=== PATIENT | female | born 1985 | race Caucasian/White ===

== ENCOUNTER 2023-05-06 07:25 | Emergency (ER) | payer MEDICARE, MEDICAID, SELFPAY ==
--- NOTE | ~2023-05-06 | CT_ITS ---
EXAMINATION: CT ABDOMEN AND PELVIS WITHOUT CONTRAST CLINICAL INFORMATION: Abdominal pain COMPARISON: Pelvic ultrasound 11/03/2017 TECHNIQUE: Multidetector volumetric imaging was performed from the superior aspect of the liver through the pubic symphysis. Sagittal and coronal reformatted images were obtained on the technologist's workstation. This CT examination was performed using dose optimization techniques as appropriate, variously including the following: *Automated exposure control *Adjustment of mA and/or kV according to patient size (this includes techniques or standardized protocols for targeted exams where dose is matched to indication/reason for exam; i.e. extremities or head) *Use of iterative reconstruction technique DLP: 298 mGy-cm FINDINGS: Lack of mesenteric fat and visceral crowding somewhat limits evaluation. LUNG BASES: Unremarkable. ABDOMINAL AND PELVIC WALL: Unremarkable. LIVER AND BILIARY TREE: Liver is enlarged measuring 20.4 cm in span. GALLBLADDER: Unremarkable. PANCREAS: Unremarkable. SPLEEN: Unremarkable. ADRENAL GLANDS: Unremarkable. KIDNEYS AND URETERS: No hydronephrosis or nephrolithiasis. GASTROINTESTINAL TRACT: Colonic diverticulosis without evidence of diverticulitis. The appendix is not identified with certainty however there are no secondary findings to suggest appendicitis. VASCULAR: Unremarkable. LYMPH NODES/PERITONEUM: No lymphadenopathy. FREE FLUID: None. BLADDER: Unremarkable. PELVIC VISCERA: Unremarkable. OSSEOUS STRUCTURES: Subacute to chronic appearing right sacral insufficiency fracture. Subacute left superior pubic ramus fracture and subacute to chronic comminuted left inferior pubic ramus fracture. Levoconvex curvature of the lumbar spine with degenerative disc disease at L3-L4. CT/CT abdomen pelvis wo IV con IMPRESSION: 1. Subacute to chronic appearing right sacral insufficiency fracture. Subacute to chronic appearing left superior pubic ramus fracture and subacute to chronic comminuted left inferior pubic ramus fracture. 2. Hepatomegaly.
[2023-05-06 07:34] VITALS: BP 130/80; PULSE 72; O2SAT 100; BMI 17.5
[2023-05-06 07:40] VITALS: BP 103/60; PULSE 64; RESP 16; TEMP 36.8; O2SAT 99
[2023-05-06 08:25] LABS: Appearance Urine Clear; Color Urine Yellow; Glucose Urine UA Negative (Negative); Leukocyte Esterase Urine Trace (Negative); Nitrite Urine Negative (Negative); PH 6.5 (5.0-9.0); Specific Gravity - Urine 1.015 (1.005-1.025); UMIC TRIGGER UACC YES; Urine Blood Negative (Negative); Urine Ketones Negative (Negative); Urine Protein Negative (Neg-Trace)
[2023-05-06 08:33] LABS: Amphetamine Screen Urine Not Detected (Not Detect); Barbiturates, Urine Not Detected (Not Detect); Benzodiazepines Screen Urine Not Detected (Not Detect); Cannabinoid Screen Urine POSITIVE (Not Detect); Cocaine Screen Urine POSITIVE (Not Detect); Fentanyl, urine POSITIVE (Not Detect); Opiate Screen Urine POSITIVE (Not Detect); Phencyclidine Screen Urine Not Detected (Not Detect)
--- NOTE | 2023-05-06 08:34 | ED_ITS ---
HPI - Psych General Chief Complaint: Psychiatric Symptoms Stated Complaint: SI W/PLAN,? ETOH/HEROIN WITHDRAWAL,VOLUNTARY Time Seen by Provider: 05/06/23 07:26 Source: patient and EMS Mode of arrival: EMS Limitations: no limitations History of Present Illness HPI Narrative: This is a 38-year-old female, history of homelessness, anxiety, depression, polysubstance abuse presenting to the emergency department stating that she is suicidal with plan to jump off the overpass and she thinks she is withdrawing from heroin and alcohol she last used both yesterday. She reports she typically has 6 Natty daddy's and a few shots. Patient reports increasing anxiety and depression secondary to increasing life stressors. Denies homicidal ideations, hallucinations, chest pain, shortness of breath, nausea, vomiting, abdominal pain, headache, vision changes, dizziness, weakness, muscle aches and pains, diaphoresis. Related Data Allergies Allergy/AdvReac Type Severity Reaction Status Date / Time No Known Allergies Allergy Verified 05/06/23 07:38 [No Known Allergies*] Review of Systems 2 Review of Systems: Constitutional : No Weight loss, No Fever, No Chills, No Fatigue, No Malaise ENT/Mouth : No sore throat, No Rhinorrhea Eyes: No Eye Pain, No Swelling, No Redness Cardiovascular : No Chest Pain, No SOB, No Dyspnea on Exertion, No Orthopnea, No Edema, No Palpitations Respiratory : No Cough, No Sputum, No Wheezing Gastrointestinal : No Nausea, No Vomiting, No Diarrhea, No Constipation, No abdominal Pain, No Hematochezia, No Melena Genitourinary : No Dysuria, No Urinary Frequency, No Hematuria, Musculoskeletal : No joint pain, No Myalgias, No Joint Swelling Skin : No Skin Lesions, No rash Neuro : No Weakness, No Numbness, No Dizziness, No Headache Psych : + Anxiety/Panic, + Depression, +SI All other systems reviewed and are negative Yes all other systems are reviewed and are negative [facility] Past Medical History Attestation statement: The following information was validated with the patient. Source: old records reviewed and nursing notes reviewed Social History Social History Alcohol intake: current Smoked in Last 30 Days: Yes Use of substances other than those prescribed or required for medical reasons: Yes Substance Use Type: Crack/Cocaine and Heroin Substance Use Frequency: Chronic Longstanding Last Used Substance: Just Prior to Admission Advance Directives: No Physical Exam 2 Vital Signs: Vital Signs: Last Vital Signs Temp 98.4 F 05/06/23 13:17 Pulse 58 05/06/23 13:17 Resp 12 05/06/23 13:17 BP 131/64 05/06/23 13:17 Pulse Ox 100 05/06/23 13:17 O2 Del Method Room Air 05/06/23 13:17 BMI result Body Mass Index 17.5 vss Appearance: Alert.? Oriented X3.? No acute distress.? Head: Normocephalic, atraumatic, no step-offs or deformities Eyes: Pupils equal, round and reactive to light.? CVS: Normal heart rate and rhythm.? Pulses normal.? Respiratory: No respiratory distress.? Breath sounds normal.? Abdomen: Soft and nontender.? Skin: Skin warm and dry.? Normal skin color.? Normal skin turgor.? Extremities: No lower extremity edema.? No calf ttp. 5/5 strength to bilateral upper and lower extremities Back: No midline tenderness, no C-spine tenderness, full range of motion, no CVA tenderness bilaterally Neuro: Oriented X 3.? No motor deficit.? No sensory deficit. CN 2-12 intact Course Reevaluation(s) Reevaluation #1: CBC with no acute findings requiring intervention. Chemistry with low potassium, will repeat after repletion. UA without infection urine toxicology positive for opiates, fentanyl, cocaine, marijuana. Ethanol negative. Salicylates acetaminophen negative. Patient was complaining of belly pain her labs intact, did have an episode of nausea improved is Zofran. CT abdomen pelvis results pending. Abdomen is minimally tender, likely viral versus withdrawal. Unlikely acute abdomen, torsion, ectopic . Time: 12:45 Reevaluation #2: Patient very difficult stick, does not want people to poker again, will obtain a dry CT scan at this time Time: 13:07 Reevaluation #3: CT abdomen and pelvis with subacute to chronic appearing right sacral insufficiency fracture, likely chronic, no complaints of pelvic pain or sacral pain, subacute to chronic appearing left superior pubic ramus fracture again likely chronic, chronic comminuted left inferior pubic ramus fracture. No reported falls. Patient ambulatory. Patient's abdominal pain improved. No longer having nausea or vomiting. I do not suspect appendicitis, negative Renuka Martinez's point. At this time patient to be placed observation to allow more time to be evaluated by behavioral health team. At time observation was started patient common cooperative no acute distress will continue to monitor Time: 15:22 Additional Reevaluation(s): Detox bedsearch denies si and hi to care team. will continue to monitor Medications Administered Discontinued Medications Generic Name Dose Route Start Last Admin Trade Name Amna PRN Reason Stop Dose Admin Lorazepam 1 mg 05/06/23 11:35 05/06/23 11:38 Lorazepam 1 Mg Tablet PO 05/06/23 11:36 1 mg ONCE ONE Administration Lorazepam 1 mg 05/06/23 13:07 05/06/23 13:59 Lorazepam 1 Mg Tablet PO 05/06/23 13:08 1 mg ONCE ONE Administration Ondansetron HCl 4 mg 05/06/23 11:44 05/06/23 13:09 Ondansetron Hcl 4 Mg/2 Ml Vial IVPUSH 05/06/23 11:45 Not Given ONCE ONE Potassium Chloride 40 meq 05/06/23 10:30 05/06/23 11:43 Potassium Chloride Er 20 Meq Tab.Er.Prt PO 05/06/23 10:31 Not Given ONCE ONE Medical Decision Making Medical Decision Making [facility] Narrative: [id number] 38-year-old female presents with depression, suicidal ideation, states she is withdrawing from heroin and alcohol last drink was yesterday. Physical exam benign No signs of alcohol withdrawal on my exam. Likely polysubstance abuse. Unlikely metabolic derangements. Plan at this time labs, medical clearance and evaluation by behavioral health team Differential Diagnosis Differential Diagnoses: The differential diagnosis associated with the presentation includes Lab Data 05/06/23 07:43 05/06/23 07:43 Labs: Lab Results 05/06/23 Range/Units 07:43 WBC 4.5 L (4.8-10.8) X10*3/uL RBC 4.49 (4.20-5.50) X10*6/uL Hgb 13.0 (12.0-16.0) g/dl Hct 37.5 (37.0-47.0) % MCV 83.5 (80.0-98.0) fL MCH 29.0 (27.0-33.0) pg MCHC 34.7 (31.0-35.0) g/dl RDW 13.5 (11.0-16.0) % Plt Count 409 H (160-400) X10*3/uL MPV 8.9 L (9.4-12.3) fL Immature Gran % (Auto) 0.2 (0.0-0.4) % Neut % (Auto) 73.3 H (45-73) % Lymph % (Auto) 21.1 (20-40) % [place] % (Auto) 4.3 (2-11) % Eos % (Auto) 0.4 (0-4) % Baso % (Auto) 0.7 (0-2) % Lymph # (Auto) 0.9 L (1.2-4.9) X10*3/uL [place] # (Auto) 0.2 (0.1-1.2) X10*3/uL Eos # (Auto) 0.0 (0.0-0.4) X10*3/uL Baso # (Auto) 0.0 (0.0-0.2) X10*3/uL Abs Immat Gran (auto) 0.01 (0.00-0.03) X10*3/uL Absolute Neuts (auto) 3.3 (2.0-8.3) x10*3/uL Absolute Nucleated RBC 0.000 (0.0-0.012) X10*3/uL Nucleated RBC % (auto) 0.0 (0.0-0.2) /100WBC Sodium 139 (135-145) mmol/L Potassium 3.0 L (3.3-5.1) mmol/L Chloride 105 (96-108) mmol/L Carbon Dioxide 25 (22-29) mmol/L Anion Gap 12 (12-20) BUN 9 (9-16) mg/dL Creatinine 0.72 (0.5-1.4) mg/dL Estim Creat Clear Calc 86.4 Estimated GFR > 60 Random Glucose 100 (60-115) mg/dL Calcium 9.5 (8.4-10.2) mg/dL Magnesium 2.0 (1.6-2.6) mg/dL Total Bilirubin 0.7 (0.0-1.0) mg/dL AST 14 (5-31) U/L ALT 8 (0-31) U/L Alkaline Phosphatase 102 (39-117) U/L Total Protein 8.1 H (6.5-8.0) g/dL Albumin 4.0 (3.5-5.0) g/dL Beta HCG, Quant < 2 mIU/mL Urine Color Yellow Urine Appearance Clear Urine pH 6.5 (5.0-9.0) Ur Specific [place] 1.015 (1.005-1.025) Urine Protein Negative (Neg-Trace) mg/dL Urine Glucose (UA) Negative (Negative) mg/dL Urine Ketones Negative (Negative) mg/dL Urine Blood Negative (Negative) Urine Nitrite Negative (Negative) Ur Leukocyte Esterase Trace H (Negative) Urine RBC 3-5 H (0-2) /HPF Urine WBC 0-5 (0-5) /HPF Ur Squamous Epith Cells 11-20 (0-2) /HPF Urine Bacteria None Seen (None Seen) Hyaline Casts 0-2 (0-2) /LPF Salicylates < 5.0 L (15-30) mg/dL Urine Opiates Screen POSITIVE H (Not Detect) Urine Fentanyl Screen POSITIVE H (Not Detect) Acetaminophen < 17 (<30) mcg/mL Ur Barbiturates Screen Not Detected (Not Detect) Ur Phencyclidine Scrn Not Detected (Not Detect) Ur Amphetamines Screen Not Detected (Not Detect) U Benzodiazepines Scrn Not Detected (Not Detect) Urine Cocaine Screen POSITIVE H (Not Detect) U Marijuana (THC) Screen POSITIVE H (Not Detect) Ethyl Alcohol < 10 mg/dL Critical Care Time Critical Care Time Critical Care Time: No Discharge Plan Discharge Clinical Impression: Polysubstance abuse, Suicidal ideation, Depression, Abdominal pain, Nausea & vomiting Patient Disposition: Still a Patient Additional Instructions: Take your medications as prescribed. If you were prescribed antibiotics today, it is important that you take your medication to their entirety, do not skip any doses, do not finish them early. Follow-up with your primary care provider this week. Return to the emergency department with new or worsening symptoms. Such as fevers, chills, chest pain, shortness of breath, nausea, vomiting, dizziness, headache, vision changes, lethargy In case of emergency call 911 Interventions: [place]-Suicide Risk Severity Scale Last Done: 05/06/23 08:07
[2023-05-06 08:42] LABS: Bacteria Urine None Seen (None Seen); Hyaline Casts Urine 0-2 /LPF (0-2); WBC Urine 0-5 /HPF (0-5)
[2023-05-06 10:03] LABS: MANUAL DIFF FLAG NO
[2023-05-06 10:16] LABS: Basophils Percent Auto 0.7 % (0-2); Eosinophils Percent Auto 0.4 % (0-4); Hematocrit 37.5 % (37.0-47.0); Imm Gran Abs Auto 0.01 X10*3/uL (0.00-0.03); Imm Gran Pct Auto 0.2 % (0.0-0.4); Lymphocytes Absolute Auto 0.9 X10*3/uL (1.2-4.9); Lymphocytes Percent Auto 21.1 % (20-40); Mean Corpuscular HGB Conc 34.7 g/dl (31.0-35.0); Mean Corpuscular Volume 83.5 fL (80.0-98.0); Mean Platelet Volume 8.9 fL (9.4-12.3); Monocytes Absolute Auto 0.2 X10*3/uL (0.1-1.2); Monocytes Percent Auto 4.3 % (2-11); Neutrophils Absolute Auto 3.3 x10*3/uL (2.0-8.3); Neutrophils Percent Auto 73.3 % (45-73); Platelet Count 409 X10*3/uL (160-400); Red Blood Count 4.49 X10*6/uL (4.20-5.50); Red Cell Distribution Width 13.5 % (11.0-16.0); White Blood Count 4.5 X10*3/uL (4.8-10.8)
[2023-05-06 10:26] LABS: Acetaminophen LAB < 17 mcg/mL (<30); Alanine Aminotransferase 8 U/L (0-31); Alkaline Phosphatase 102 U/L (39-117); Anion Gap 12 (12-20); Aspartate Amino Transferase 14 U/L (5-31); Bilirubin Total 0.7 mg/dL (0.0-1.0); Blood Urea Nitrogen 9 mg/dL (9-16); Calcium 9.5 mg/dL (8.4-10.2); Carbon Dioxide 25 mmol/L (22-29); Chloride 105 mmol/L (96-108); Creatinine Clr Calc Pharmacy 86.4; Estimated Glomerular Filt Rate > 60; Ethanol < 10 mg/dL; Glucose Random 100 mg/dL (60-115); Salicylate < 5.0 mg/dL (15-30); Sodium 139 mmol/L (135-145); Total Protein 8.1 g/dL (6.5-8.0)
[2023-05-06] MEDS: LORazepam 1 MG TABLET PO ×2 (11:38→13:59)
[2023-05-06 12:34] LABS: HCG Quantitative < 2 mIU/mL
--- NOTE | 2023-05-06 13:09 | PC.NURSE ---
pt is a hard stick, two techs and nurse were needed for blood draw. IV tried twice and not obtained. PA aware, CT w/ con cancelled and IV zofran held (plt also reports that they are no longer nauseous).
[2023-05-06 13:17] VITALS: BP 131/64; PULSE 58; RESP 12; TEMP 36.9; O2SAT 100
--- NOTE | 2023-05-06 16:33 | MHC.CARE ---
CARE Team attempted to meet with the pt, but she stated that she hurts all over and wants to throw up . Pt further stated that she is dope sick , and that she wants methadone. She would like to go to detox for heroin use. Pt denied SI/HI/AVH to t/w. Pt will be referred to the recovery team and will be seen in the morning.
[2023-05-06 19:49] VITALS: BP 113/66; PULSE 49; RESP 14; TEMP 36.4; O2SAT 100
--- NOTE | 2023-05-06 19:50 | PC.NURSE ---
pt remains in ED hallway throughout the day. Pt has slept most of the day. They don't report any pain but do report feeling generally not great . Pt denies nausea, which she had earlier in the day with one episode of vomiting. No signs of withdrawal noted. Pt reports that they want to go to detox treatment in [facility] where someone can dose me correctly . VSS. will ctm
[2023-05-06 22:27] VITALS: BP 118/65; PULSE 52; RESP 18; TEMP 38.4; O2SAT 100
--- NOTE | 2023-05-06 22:30 | MHC.EDTECH ---
patient is on one to one sitter
[2023-05-07] MEDS: Acetaminophen 325 MG TABLET 650 MG PO (00:39)
[2023-05-07 01:39] VITALS: RESP 18; TEMP 36.7
[2023-05-07] MEDS: LORazepam 1 MG TABLET PO ×2 (03:17→11:31)
--- NOTE | 2023-05-07 03:19 | PC.NURSE ---
Pt appears to be sleeping at this time, awakens easy by verbal stimuli, Pt A&Ox4, reports 9/10 constant ABD pain, increase anxiety. Reports feeling safe while here, denies SI/HI, states I need to get to [facility] for detox . 1:1 sitter at bedside.
[2023-05-07 08:03] VITALS: BP 119/82; PULSE 50; RESP 12; TEMP 37.1; O2SAT 100
--- NOTE | 2023-05-07 09:35 | MHC.RECOVRN ---
Addendum entered by Rosalie Cohn RN 05/07/23 14:55: Detox bedsearch exhausted, [facility] all do not accept the pt's insurance. Plan to put together a resource folder for the pt to follow up in the community. Addendum entered by Rosalie Cohn RN 05/07/23 09:50: Referral packet sent to [facility]. Original Note: T/w met with pt to discuss recovery goals. Pt reports that she has previously been dosed with [facility] for her MTD but that it has been awhile . Pt endorsing that she would like to go to detox, reports her last use of fentanyl and alcohol was 2 days prior. Reports she uses a couple of bundles of fentanyl daily, has overdosed in the past, and has been to detox before. Pt reports she drink a couple of Nattie Ice and a shot or two daily. No restless, tremor, or yawning noted. Pt reports she feels sick and has a stomach ache, diarrhea, tremors, watery eyes. Plan to conduct a detox bedsearch at this time, pt stating she does not mind where it is.
[2023-05-07 14:30] VITALS: BP 139/84; PULSE 62; RESP 16; TEMP 37.7; O2SAT 98
== END 2023-05-07 15:30 | disposition home or self-care (01) ==
PROVIDERS: Physician Assistant; Emergency Provider Emergency Medicine
DX: F33.1 Major depressive disorder, recurrent, moderate (principal); R45.851 Suicidal ideations; F10.239 Alcohol dependence with withdrawal, unspecified; F11.10 Opioid abuse, uncomplicated; R10.2 Pelvic and perineal pain; R11.2 Nausea with vomiting, unspecified; F14.10 Cocaine abuse, uncomplicated; Y90.0 Blood alcohol level of less than 20 mg/100 ml; Z79.899 Other long term (current) drug therapy
CPT/HCPCS: 36415; 74176; 80053; 80143; 80179; 80307; 81001; 83735; 84702; 85025; 99285

== ENCOUNTER 2023-07-06 17:19 | Emergency (ER) | payer MEDICARE, MEDICAID, SELFPAY ==
--- NOTE | 2023-07-06 17:27 | ED.GENADULT ---
HPI - General Adult General Chief complaint: ETOH/Substance Use Stated complaint: SUBSTANCE ABUSE, FOUND SLEEPING OUTSIDE Source: patient and EMS Mode of arrival: EMS History of Present Illness HPI narrative: 38-year-old female history of IV drug abuse presenting status post suspected overdose, patient reports she was sitting down having a coffee and smoking a cigarette, he use some drugs, a few bags of heroin as well as cocaine, woke up surrounded by the Fire Department, she awoke without Narcan. Then EMS arrived and convinced her to come in for evaluation. She does admit to alcohol abuse she reports she only took 1 shot however. To me she denies suicidal and homicidal ideation. She reports her life is actually going quite well. Patient denies medical complaints. No reported trauma. Related Data Previous Rx's Medication Instructions Recorded naloxone 4 mg/actuation nasal 4 mg intranasal Q2M PRN opioid 07/06/23 spray (Narcan) overdose #2 ea Allergies Allergy/AdvReac Type Severity Reaction Status Date / Time No Known Allergies Allergy Verified 05/06/23 07:38 [No Known Allergies*] Review of Systems Review of Systems: Constitutional : No Weight loss, No Fever, No Chills, No Fatigue, No Malaise ENT/Mouth : No sore throat, No Rhinorrhea Eyes: No Eye Pain, No Swelling, No Redness Cardiovascular : No Chest Pain, No SOB, No Dyspnea on Exertion, No Orthopnea, No Edema, No Palpitations Respiratory : No Cough, No Sputum, No Wheezing Gastrointestinal : No Nausea, No Vomiting, No Diarrhea, No Constipation, No abdominal Pain, No Hematochezia, No Melena Genitourinary : No Dysuria, No Urinary Frequency, No Hematuria, Musculoskeletal : No joint pain, No Myalgias, No Joint Swelling Skin : No Skin Lesions, No rash Neuro : No Weakness, No Numbness, No Dizziness, No Headache Psych : No Anxiety/Panic, No Depression All other systems reviewed and are negative Yes all other systems are reviewed and are negative [facility] Past Medical History Attestation statement: The following information was validated with the patient. Source: old records reviewed and nursing notes reviewed Social History Social History Alcohol intake: current Substance Use Type: Crack/Cocaine and Heroin Physical Exam ED Vital Signs: Vital Signs - 24 hr 07/06/23 17:34 Pulse Rate 84 Respiratory Rate 18 Blood Pressure 111/88 Pulse Oximetry 96 Oxygen Delivery Method Room Air BMI result Body Mass Index 18.7 vss Appearance: Alert.? Oriented X3.? No acute distress.? Unknempt Head: Normocephalic, atraumatic, no step-offs or deformities Eyes: Pupils equal, round and reactive to light.? CVS: Normal heart rate and rhythm.? Pulses normal.? Respiratory: No respiratory distress.? Breath sounds normal.? Abdomen: Soft and nontender.? Skin: Skin warm and dry.? Normal skin color.? Normal skin turgor.? Extremities: No lower extremity edema.? No calf ttp. 5/5 strength to bilateral upper and lower extremities Back: No midline tenderness, no C-spine tenderness, full range of motion, no CVA tenderness bilaterally Neuro: Oriented X 3.? No motor deficit.? No sensory deficit. CN 2-12 intact . Ambulatory with steady gait normal coordination. Course Reevaluation(s) Reevaluation #1: Patient is alert and oriented x4, not suicidal or homicidal, linear thought process, ambulating with steady gait normal coordination. Patient tells me she really does not want to be here and she does not understand why they brought her in. EMS essentially told me that they wanted well-being check on her as she was outside using drugs. Patient in no signs of acute respiratory distress requesting to leave no indication for Section 12. Patient has a right to refuse labs. At this time patient to be discharged will give Narcan for home. Time: 17:43 Medical Decision Making Medical Decision Making [facility] Narrative: [id number] 38-year-old female presents status post opiate use. Physical examination patient unkempt however no acute finding Likely polysubstance abuse. Unlikely metabolic derangements. No signs of trauma head, neck, chest, abdomen or pelvis. Plan at this time observation. No need for Narcan. Patient awake and alert x4. No focal neuro deficits no need for imaging of head, no reported trauma. No indication for labs at this time. Will observe O2 sat. No indication for Section 12 either. Differential Diagnosis Differential Diagnoses: The differential diagnosis associated with the presentation includes Likely polysubstance abuse. Unlikely metabolic derangements. No signs of trauma head, neck, chest, abdomen or pelvis. Admission/Observation Consideration of admission/observation: Escalation of care including admission/observation considered Unlikely External Record Review External record reviewed: Inpatient record Chronic Conditions Patient?s care impacted by: Other (homelessness, depression, polysubstance. ) Critical Care Time Critical Care Time Critical Care Time: No Discharge Plan Discharge Clinical Impression: Polysubstance abuse Patient Disposition: Home, Self-Care Instructions: Polysubstance Abuse (ED) Additional Instructions: Take your medications as prescribed. If you were prescribed antibiotics today, it is important that you take your medication to their entirety, do not skip any doses, do not finish them early. Follow-up with your primary care provider this week. Return to the emergency department with new or worsening symptoms. Such as fevers, chills, chest pain, shortness of breath, nausea, vomiting, dizziness, headache, vision changes, lethargy In case of emergency call 911 Prescriptions: New naloxone [Narcan] 4 mg/actuation spray,non-aerosol 4 mg intranasal Q2M PRN (Reason: opioid overdose) Qty: 2 0RF Rx Instructions: spray 1 dose into ONE nostril; alternate nostrils w each dose until help arrives Referrals: ED Physician,Generic [Emergency Provider] - 2 days Stand Alone Forms: Work/School Release
[2023-07-06 17:34] VITALS: BP 111/88; BP 142/84; PULSE 77; PULSE 84; RESP 18; O2SAT 96; O2SAT 98; BMI 18.7
--- NOTE | 2023-07-06 17:42 | PC.NURSE ---
Patient declined blood work and to provide urine, sample. Denies SI/HI. Does not want to go to detox at this time. Alert and oriented, provided with food and fluids
--- NOTE | 2023-07-06 18:55 | PC.NURSE ---
Patient removed entire contents of trash bags that she came in with containing her personal belongings. Patient upset that she believes [place] [employer] lost her new clothes. Patient packed up all personal belongings and left
== END 2023-07-06 18:58 | disposition home or self-care (01) ==
LOC: HO.ED 17:46
PROVIDERS: Emergency Provider Emergency Medicine
DX: F11.10 Opioid abuse, uncomplicated (principal); F14.10 Cocaine abuse, uncomplicated; F17.210 Nicotine dependence, cigarettes, uncomplicated; Z71.6 Tobacco abuse counseling; Z71.51 Drug abuse counseling and surveillance of drug abuser
CPT/HCPCS: 99284

== ENCOUNTER 2023-07-22 17:48 | Inpatient (IN) | payer MEDICARE, SELFPAY ==
[2023-07-22] VITALS (7 sets, daily range): BP systolic 111–142; BP diastolic 59–84; PULSE 95–123; RESP 15–18; TEMP 37.7–38.8; O2SAT 95–100; BMI 20.5
--- NOTE | ~2023-07-22 | XR_ITS ---
EXAMINATION: XR CHEST CLINICAL INFORMATION: Chest pain COMPARISON: CT abdomen pelvis 05/06/2023 TECHNIQUE: 2 views of the chest were obtained. FINDINGS: There is a scoliosis convex to the right. The heart size is normal. No definite infiltrates are seen. Some nodular densities are seen in the right mid lung overlying the seventh posterior rib and scapula. There is a opacity seen overlying the left seventh posterolateral rib. No consolidations with air bronchograms. No pleural effusions. XR/XR chest 2V IMPRESSION: No acute intrathoracic disease. Some nodular densities are seen as described above. These may or may not be in the lungs. A CT scan of the chest could be performed for further evaluation.
--- NOTE | ~2023-07-22 | CT_ITS ---
EXAMINATION: CT ABDOMEN AND PELVIS WITH CONTRAST CLINICAL INFORMATION: Diarrhea and abdominal pain COMPARISON: CT abdomen pelvis 05/06/2023 TECHNIQUE: Multidetector volumetric images were obtained from the superior aspect of the liver through the pubic symphysis following administration 85 mL of Omnipaque 350 intravenous contrast. Sagittal and coronal reformatted images were obtained on the technologist's workstation. Oral contrast: No This CT examination was performed using dose optimization techniques as appropriate, variously including the following: *Automated exposure control *Adjustment of mA and/or kV according to patient size (this includes techniques or standardized protocols for targeted exams where dose is matched to indication/reason for exam; i.e. extremities or head) *Use of iterative reconstruction technique DLP: 532 mGy-cm FINDINGS: LUNG BASES: Some tree-in-bud opacities are present in the lower lobes suggesting some airway disease. No pleural effusions. No consolidations. LIVER, GALLBLADDER, AND BILIARY TREE: The liver is enlarged measuring 22.4 cm in greatest cephalocaudad dimension. In size, shape, and attenuation. No focal hepatic lesion or biliary ductal dilatation is present. The gallbladder is demonstrates some mild gallbladder wall thickening. There is minimal prominence of intrahepatic bile ducts. Common bile duct measures 5 mm in diameter. No radiopaque gallstones or obvious pericholecystic inflammatory changes. PANCREAS: Unremarkable. SPLEEN: Spleen is enlarged 12.9 cm in cephalocaudad dimension ADRENAL GLANDS: Unremarkable. KIDNEYS AND URETERS: The kidneys are normal in size, shape, and attenuation. No hydronephrosis, hydroureter, or calculi seen. No perinephric stranding. BLADDER: Unremarkable. GASTROINTESTINAL TRACT: The small and large bowel are unremarkable aside from colonic diverticula without diverticulitis. The appendix is not seen but there is no evidence of appendicitis evidence of appendicitis. ABDOMINAL WALL: No significant hernia is appreciated. LYMPH NODES: No retroperitoneal lymphadenopathy. VASCULAR: Unremarkable. PELVIC VISCERA: The uterus and adnexa are unremarkable. OSSEOUS STRUCTURES: Degenerative changes are present in the spine most marked at L3-L4 with scoliosis convex to left. Again seen are chronic fractures involving the superior pubic ramus as well as the inferior pubic ramus on the left. Right sacral insufficiency fracture again noted. CT/CT abdomen pelvis w IV con IMPRESSION: 1. A cause for the patient's diarrhea and abdominal pain has not been found. 2. Incidental note made of hepatosplenomegaly, colonic diverticulosis without diverticulitis, chronic pelvic fractures and degenerative changes in the spine with scoliosis. Fleischner guidelines were followed.
--- NOTE | ~2023-07-22 | IR_ITS ---
PROCEDURE: IR INSERTION OF PICC CLINICAL INFORMATION: PICC line for antibiotic therapy COMPARISON: None available. TECHNIQUE: All elements of maximal sterile barrier technique followed including use of cap, mask, sterile gown, sterile gloves, a sterile full body drape and hand hygiene. Also followed skin preparation with 2% chlorhexidine for cutaneous antisepsis, and sterile ultrasound preparation with sterile gel and probe cover when applicable. Through the previously placed midline in the right upper arm A.014 guidewire was placed. A guidewire and catheter were advanced into the SVC. A 5 Algerian peel-away sheath was placed. A guidewire was used to measure the length of the PICC line. A new single-lumen 4 [place] PICC line measuring 36 cm in length was placed with the tip of the catheter at the junction of the SVC and right atrium. FINDINGS: Replacement of the midline catheter for a new 4 [place] single-lumen PICC line placement. IR/IR cvc insert peripheral IMPRESSION: Excellent position of the 4 [place] PICC line with tip of the catheter at the junction of the SVC and right atrium.
--- NOTE | 2023-07-22 18:39 | PC.NURSE ---
patient continues to sleep on stretcher with respirations even and unlabored. belongings on back of stretcher, labeled. patient with no vomiting/diarrhea since arrival to ED.
--- NOTE | 2023-07-22 19:00 | ECG_ITS ---
Test Reason : NAUSEA /VOMITING Blood Pressure : / mmHG Vent. Rate : 106 BPM Atrial Rate : 106 BPM P-R Int : 128 ms QRS Dur : 088 ms QT Int : 334 ms P-R-T Axes : 050 067 045 degrees QTc Int : 443 ms Sinus tachycardia Minimal voltage criteria for LVH, may be normal variant ( [place] product ) Borderline ECG No previous ECGs available Referred By: Rusty Garcia Electronically Signed By:LINDY LEMUS MD
--- NOTE | 2023-07-22 19:07 | ED.GENADULT ---
HPI - General Adult General Chief complaint: General Medical Stated complaint: NAUSEA,DIZZY,AGUAYO PER EMS Time Seen by Provider: 07/22/23 18:48 Source: patient History of Present Illness HPI narrative: Pt is a 38yo female who presents to the ED with a cc of feeling sick with diarrhea and nausea for the past week. Pt states that in addition to nausea and diarrhea she has had a fever, chills, sweating, headache, dizziness, neck pain, and loss of appetite. Pt denies cp, cough, or vomiting. Pt has not tried any medications to alleviate her sx. Of note the pt states she is a daily alcohol and IV fentanyl user with last use of both this morning (one nip and 1 bag of fentanyl). Pt notes a hx of w/d sz and fentanyl overdoses requiring Narcan. Related Data Home Medications Medication Instructions Recorded Confirmed No Known Home Meds 07/22/23 07/22/23 Allergies Allergy/AdvReac Type Severity Reaction Status Date / Time No Known Allergies Allergy Verified 07/22/23 22:50 [No Known Allergies*] Review of Systems Constitutional: Constitutional: Reports body ache(s), Reports chills, Reports excessive sweating, Reports fatigue, Reports fever(s), Reports headache(s) and Reports poor appetite Eyes: Eyes: Denies change in vision ENT: Reports dizziness, Reports headache(s), Denies nasal congestion, Denies neck pain and Denies sore throat Cardiovascular: Cardiovascular: Denies chest pain and Denies dyspnea Respiratory: Respiratory: Denies chest congestion, Denies cough and Denies dyspnea Gastrointestinal: Gastrointestinal: Reports abdominal pain, Denies constipation, Reports diarrhea, Reports nausea and Denies vomiting Musculoskeletal: Musculoskeletal: Denies neck pain and Reports stiffness (neck stiffness) Integumentary/Breasts: Skin/Breast: Denies new lesions, Denies rash and Denies wounds Neurologic: Reports dizziness and Reports headache(s) Endocrine: Endocrine: Reports excessive sweating and Reports fatigue PMFSH Social History Alcohol intake: current Substance Use Type: Crack/Cocaine and Heroin Advance Directives: No Advance Directives Information Provided: Yes Physical Exam ED Vital Signs: Vital Signs - 24 hr 07/22/23 18:05 07/22/23 19:57 07/22/23 20:55 Temperature 99.9 F 100.7 F H 101.9 F H Pulse Rate 102 H 102 H 106 H Respiratory Rate 18 15 16 Blood Pressure 120/75 123/73 119/61 Pulse Oximetry 100 97 97 Oxygen Delivery Method Room Air Room Air Room Air 07/22/23 21:39 07/22/23 22:12 07/22/23 22:21 Temperature 100.4 F 99.9 F Pulse Rate 102 H 102 H 104 H Respiratory Rate 18 16 18 Blood Pressure 117/64 111/59 L 117/61 Pulse Oximetry 98 96 Oxygen Delivery Method Room Air Room Air 07/22/23 22:38 07/23/23 00:00 Temperature 98.3 F Pulse Rate 95 80 Respiratory Rate 16 15 Blood Pressure 122/77 107/70 Pulse Oximetry 95 98 Oxygen Delivery Method Room Air Room Air BMI result Body Mass Index 20.5 Const General: cooperative, no acute distress, alert (alert to verbal command), ill appearing, tired appearing and other (pt is warm to touch) Orientation/consciousness: patient oriented x3 HENMT Head: Yes normocephalic and Yes atraumatic Ears: hearing grossly normal bilaterally General nose exam: Normal external nose present Mouth: Normal oral and palatal mucosa present Teeth and gingiva: poor dentition Eyes General: appearance normal, both eyes and all related structures Neck Other: full passive flexion of the neck Neck: Yes normal visual inspection, Yes no meningeal signs, No positive Brudzinski's sign and No positive Kernig's sign Resp Effort & Inspection: normal respiratory effort, able to speak in complete sentences and not labored Auscultation: clear to auscultation bilaterally Cardio Rate: tachycardic Rhythm: regular rhythm Heart sounds: S1 normal heart sound present and S2 normal heart sound present GI Inspection: Yes normal to inspection (pt has writing on the left side of her abdomen) Palpation (GI): Soft to palpation, Tenderness to palpation present (GI) in the LLQ and in the RUQ and no masses Auscultation: normal bowel sounds Back/Spine/Pelvis Other: No tenderness with palpation along the cervical, all the way through the lumbar spine Cervical Spine: normal cervical lordosis Thoracic/Lumbar Spine: thoracic and lumbar spine normal to inspection Skin General skin exam: scars (track zuluaga to the right AC, no erythema or signs of infxn) Neuro General: patient oriented x3 and no meningeal signs Cranial nerves: Yes CN's II-XII intact bilaterally Motor exam (neuro): 5/5 motor strength present throughout Course Reevaluation(s) Reevaluation #1: Patient did have a leukocytosis to 18.8 K. Primarily she is complaining of groin pain. Will get her to a private room to be able to assess this. Patient temperature increased to 100.7, her blood pressure remained stable. Her lactate is normal. She was called a sepsis alert as she is not IV drug abuser, concern for bacteremia. Will treat with vancomycin and ceftriaxone. Time: 20:57 Reevaluation #2: Patient was brought into a private room, evaluated her groin in the area where discomfort is come there is no evidence of cellulitis or abscess to the area. No rashes at all. While she was lying supine, elevated her legs to trick meningeal signs and she had no discomfort in her back or neck but did complain of ?pain in my leg. ? The patient was able to bend her neck Time: 21:43 Reevaluation #3: CT scan of the abdomen pelvis shows no evidence of acute finding. Patient will be discussed with the hospitalist for admission of sepsis likely due to bacteremia Time: 00:58 Medications Administered Discontinued Medications Generic Name Dose Route Start Last Admin Trade Name Freq PRN Reason Stop Dose Admin Acetaminophen 975 mg 07/22/23 19:32 07/22/23 20:39 Acetaminophen 325 Mg Tablet PO 07/22/23 19:33 975 mg ONCE ONE Administration Ceftriaxone Sodium 1 gm/ 50 mls @ 100 mls/hr 07/22/23 20:47 07/22/23 21:31 Sodium Chloride IV 07/22/23 21:16 Infused ONCE ONE Infusion Sodium Chloride 1,000 mls @ 999 mls/hr 07/22/23 21:00 07/22/23 22:20 Ns IV 07/22/23 22:00 Infused .Q1H1M CECY Infusion Vancomycin HCl 1,500 mg/ 500 mls @ 333.333 mls/hr 07/22/23 21:02 07/22/23 23:03 Sodium Chloride IV 07/22/23 22:31 Infused ONCE ONE Infusion Ibuprofen 600 mg 07/22/23 21:42 07/22/23 21:48 Ibuprofen 600 Mg Tablet PO 07/22/23 21:43 600 mg ONCE ONE Administration Iohexol 85 ml 07/23/23 00:08 07/23/23 00:09 Iohexol 350 Mg/Ml 100 Ml Infus..Btl IV 07/23/23 00:09 85 ml ONCE ONE Administration Medical Decision Making Medical Decision Making [facility] Narrative: 38-year-old female presents for evaluation of multiple complaints. She complains of primarily chest pain, nausea and diarrhea. She also complains of ?groin pain and left ankle pain. She also complains of subjective fevers. Will get blood cultures the patient is an IV drug abuser. She is alert oriented x3. No confusion. Workup pending at this time. Differential Diagnosis Differential Diagnoses: The differential diagnosis associated with the presentation includes (gastroenteritis, meningitis, spinal abscess, bacteremia, flu, sepsis) Admission/Observation Consideration of admission/observation: Escalation of care including admission/observation considered Consult Healthcare Provider Management of the patient was discussed with: Hospitalist (Dr Reyes) Lab Data [facility] Lab Attestation statement: I reviewed the patient's lab results. Leukocytosis of 18.8 1000. No anemia. Mild hyponatremia with a sodium 134, no significant electrolyte abnormalities. Normal renal function, normal LFTs. 07/22/23 20:25 07/22/23 20:25 Labs: Lab Results 07/22/23 07/22/23 07/22/23 Range/Units 19:44 20:23 20:25 WBC 18.8 H (4.8-10.8) X10*3/uL RBC 4.42 (4.20-5.50) X10*6/uL Hgb 13.2 (12.0-16.0) g/dl Hct 38.6 (37.0-47.0) % MCV 87.3 (80.0-98.0) fL MCH 29.9 (27.0-33.0) pg MCHC 34.2 (31.0-35.0) g/dl RDW 13.8 (11.0-16.0) % Plt Count 411 H (160-400) X10*3/uL MPV 8.8 L (9.4-12.3) fL Immature Gran % (Auto) 0.4 (0.0-0.4) % Neut % (Auto) 87.6 H (45-73) % Lymph % (Auto) 4.8 L (20-40) % [place] % (Auto) 6.8 (2-11) % Eos % (Auto) 0.1 (0-4) % Baso % (Auto) 0.3 (0-2) % Lymph # (Auto) 0.9 L (1.2-4.9) X10*3/uL [place] # (Auto) 1.3 H (0.1-1.2) X10*3/uL Eos # (Auto) 0.0 (0.0-0.4) X10*3/uL Baso # (Auto) 0.1 (0.0-0.2) X10*3/uL Abs Immat Gran (auto) 0.08 H (0.00-0.03) X10*3/uL Absolute Neuts (auto) 16.5 H (2.0-8.3) x10*3/uL Absolute Nucleated RBC 0.000 (0.0-0.012) X10*3/uL Nucleated RBC % (auto) 0.0 (0.0-0.2) /100WBC ESR 34 H (0-20) MM/HR Sodium 134 L (135-145) mmol/L Potassium 3.4 (3.3-5.1) mmol/L Chloride 97 (96-108) mmol/L Carbon Dioxide 27 (22-29) mmol/L Anion Gap 13 (12-20) BUN 16 (9-16) mg/dL Creatinine 0.78 (0.5-1.4) mg/dL Estim Creat Clear Calc 85.3 Estimated GFR > 60 Random Glucose 113 (60-115) mg/dL Lactic Acid 0.9 (0.5-2.0) mmol/L Calcium 9.6 (8.4-10.2) mg/dL Total Bilirubin 0.8 (0.0-1.0) mg/dL AST 10 (5-31) U/L ALT 11 (0-31) U/L Alkaline Phosphatase 92 (39-117) U/L Troponin I High Sens < 2.7 (<3.5-17.0) ng/L C-Reactive Protein 22.93 H (< or = 0.50) mg/dL Total Protein 8.0 (6.5-8.0) g/dL Albumin 3.8 (3.5-5.0) g/dL Lipase 24 (8-78) U/L Beta HCG, Quant < 2 mIU/mL Urine Color Urine Appearance Urine pH (5.0-9.0) Ur Specific [place] (1.005-1.025) Urine Protein (Neg-Trace) mg/dL Urine Glucose (UA) (Negative) mg/dL Urine Ketones (Negative) mg/dL Urine Blood (Negative) Urine Nitrite (Negative) Ur Leukocyte Esterase (Negative) Urine RBC (0-2) /HPF Urine WBC (0-5) /HPF Ur Squamous Epith Cells (0-2) /HPF Urine Bacteria (None Seen) Hyaline Casts (0-2) /LPF Urine Test (NEGATIVE) Urine Opiates Screen (Not Detect) Urine Fentanyl Screen (Not Detect) Ur Barbiturates Screen (Not Detect) Ur Phencyclidine Scrn (Not Detect) Ur Amphetamines Screen (Not Detect) U Benzodiazepines Scrn (Not Detect) Urine Cocaine Screen (Not Detect) U Marijuana (THC) Screen (Not Detect) Ethyl Alcohol < 10 mg/dL Influenza Type A (PCR) NEGATIVE (Negative) Influenza Type B (PCR) NEGATIVE (Negative) RSV RNA Qual (PCR) NEGATIVE (Negative) SARS-CoV-2 RNA (RT-PCR) NEGATIVE (Negative) 07/22/23 Range/Units 22:40 WBC (4.8-10.8) X10*3/uL RBC (4.20-5.50) X10*6/uL Hgb (12.0-16.0) g/dl Hct (37.0-47.0) % MCV (80.0-98.0) fL MCH (27.0-33.0) pg MCHC (31.0-35.0) g/dl RDW (11.0-16.0) % Plt Count (160-400) X10*3/uL MPV (9.4-12.3) fL Immature Gran % (Auto) (0.0-0.4) % Neut % (Auto) (45-73) % Lymph % (Auto) (20-40) % [place] % (Auto) (2-11) % Eos % (Auto) (0-4) % Baso % (Auto) (0-2) % Lymph # (Auto) (1.2-4.9) X10*3/uL [place] # (Auto) (0.1-1.2) X10*3/uL Eos # (Auto) (0.0-0.4) X10*3/uL Baso # (Auto) (0.0-0.2) X10*3/uL Abs Immat Gran (auto) (0.00-0.03) X10*3/uL Absolute Neuts (auto) (2.0-8.3) x10*3/uL Absolute Nucleated RBC (0.0-0.012) X10*3/uL Nucleated RBC % (auto) (0.0-0.2) /100WBC ESR (0-20) MM/HR Sodium (135-145) mmol/L Potassium (3.3-5.1) mmol/L Chloride (96-108) mmol/L Carbon Dioxide (22-29) mmol/L Anion Gap (12-20) BUN (9-16) mg/dL Creatinine (0.5-1.4) mg/dL Estim Creat Clear Calc Estimated GFR Random Glucose (60-115) mg/dL Lactic Acid (0.5-2.0) mmol/L Calcium (8.4-10.2) mg/dL Total Bilirubin (0.0-1.0) mg/dL AST (5-31) U/L ALT (0-31) U/L Alkaline Phosphatase (39-117) U/L Troponin I High Sens (<3.5-17.0) ng/L C-Reactive Protein (< or = 0.50) mg/dL Total Protein (6.5-8.0) g/dL Albumin (3.5-5.0) g/dL Lipase (8-78) U/L Beta HCG, Quant mIU/mL Urine Color Yellow Urine Appearance Clear Urine pH 6.5 (5.0-9.0) Ur Specific [place] 1.020 (1.005-1.025) Urine Protein 30 (1+) H (Neg-Trace) mg/dL Urine Glucose (UA) Negative (Negative) mg/dL Urine Ketones Trace (Negative) mg/dL Urine Blood Negative (Negative) Urine Nitrite Negative (Negative) Ur Leukocyte Esterase Negative (Negative) Urine RBC 3-5 H (0-2) /HPF Urine WBC 0-5 (0-5) /HPF Ur Squamous Epith Cells 11-20 (0-2) /HPF Urine Bacteria 1+ (None Seen) Hyaline Casts 0-2 (0-2) /LPF Urine Test NEGATIVE (NEGATIVE) Urine Opiates Screen POSITIVE H (Not Detect) Urine Fentanyl Screen POSITIVE H (Not Detect) Ur Barbiturates Screen Not Detected (Not Detect) Ur Phencyclidine Scrn Not Detected (Not Detect) Ur Amphetamines Screen Not Detected (Not Detect) U Benzodiazepines Scrn Not Detected (Not Detect) Urine Cocaine Screen POSITIVE H (Not Detect) U Marijuana (THC) Screen POSITIVE H (Not Detect) Ethyl Alcohol mg/dL Influenza Type A (PCR) (Negative) Influenza Type B (PCR) (Negative) RSV RNA Qual (PCR) (Negative) SARS-CoV-2 RNA (RT-PCR) (Negative) Tests considered The following testing was considered but not selected: Considered MRI spine lumbar puncture, however, the patient has general body aches, but no focal back or neck pain, negative meningeal signs, no confusion, so spinal abscess, meningitis is favored to be less likely Prescription Management I considered prescription management with: Pain Medication and Antibiotic Discharge Plan Discharge Clinical Impression: Sepsis Patient Disposition: Admitted As Inpatient
--- NOTE | 2023-07-22 19:58 | MHC.EDTECH ---
THIS PCT ASSUMED CARE OF PT AT 1900 ,VITALS TAKEN ,RSV/COVID SWAB COLLECTED AND SENT TO LAB ,PT A VERY DIFFICULT STICK ,THIS PCT TRIED TO DRAWN PT LABS TWICE AND WAS UNSUCCESSFUL ,PROVIDER AND RN AWARE .
--- NOTE | 2023-07-22 20:18 | PC.NURSE ---
Pt difficult stick, not able to obtain blood work at this time. Provider Molly Garcia at bedside with ultrasound attempting to obtain IV access.
[2023-07-22 20:25] LABS: Influenza A PCR NEGATIVE (Negative); Influenza B PCR NEGATIVE (Negative); Resp Syncy Virus RNA Qual PCR NEGATIVE (Negative); SARS COV2 PCR INHOUSE NEGATIVE (Negative)
--- NOTE | 2023-07-22 20:30 | MHC.EDTECH ---
Provider Abram was able to get labs with ultrasound guided needle .
[2023-07-22 20:35] LABS: MANUAL DIFF FLAG NO
[2023-07-22 20:38] LABS: Basophils Absolute Auto 0.1 X10*3/uL (0.0-0.2); Basophils Percent Auto 0.3 % (0-2); Eosinophils Percent Auto 0.1 % (0-4); Hematocrit 38.6 % (37.0-47.0); Hemoglobin 13.2 g/dl (12.0-16.0); Imm Gran Abs Auto 0.08 X10*3/uL (0.00-0.03); Imm Gran Pct Auto 0.4 % (0.0-0.4); Lymphocytes Absolute Auto 0.9 X10*3/uL (1.2-4.9); Lymphocytes Percent Auto 4.8 % (20-40); Mean Corpuscular HGB Conc 34.2 g/dl (31.0-35.0); Mean Corpuscular Hemoglobin 29.9 pg (27.0-33.0); Mean Corpuscular Volume 87.3 fL (80.0-98.0); Mean Platelet Volume 8.8 fL (9.4-12.3); Monocytes Absolute Auto 1.3 X10*3/uL (0.1-1.2); Monocytes Percent Auto 6.8 % (2-11); Neutrophils Absolute Auto 16.5 x10*3/uL (2.0-8.3); Neutrophils Percent Auto 87.6 % (45-73); Platelet Count 411 X10*3/uL (160-400); Red Blood Count 4.42 X10*6/uL (4.20-5.50); Red Cell Distribution Width 13.8 % (11.0-16.0); White Blood Count 18.8 X10*3/uL (4.8-10.8)
[2023-07-22] MEDS: Acetaminophen 325 MG TABLET 975 MG PO (20:39)
[2023-07-22 20:51] LABS: Lactic Acid 0.9 mmol/L (0.5-2.0)
[2023-07-22 20:53] LABS: Alanine Aminotransferase 11 U/L (0-31); Albumin Level 3.8 g/dL (3.5-5.0); Alkaline Phosphatase 92 U/L (39-117); Anion Gap 13 (12-20); Aspartate Amino Transferase 10 U/L (5-31); Bilirubin Total 0.8 mg/dL (0.0-1.0); Blood Urea Nitrogen 16 mg/dL (9-16); Calcium 9.6 mg/dL (8.4-10.2); Carbon Dioxide 27 mmol/L (22-29); Chloride 97 mmol/L (96-108); Creatinine Clr Calc Pharmacy 85.3; Estimated Glomerular Filt Rate > 60; Glucose Random 113 mg/dL (60-115); Lipase 24 U/L (8-78); Potassium 3.4 mmol/L (3.3-5.1); Sodium 134 mmol/L (135-145)
[2023-07-22 20:54] LABS: C Reactive Protein 22.93 mg/dL (< or = 0.50); Ethanol < 10 mg/dL
[2023-07-22] MEDS: 0.9 % Sodium Chloride 1,000 ML 999 ML IV (20:59)
--- NOTE | 2023-07-22 21:00 | PC.NURSE ---
This technical document writer assumed care of this Pt at 1900. Pt appears to be sleeping, awakens with verbal stimuli, reports 7/10 left ankle pain and unable to walk. No welling noted. Pt face/neck noted to be red. Skin dry, very warm to touch. Dry scabs noted to bilateral arms. Pt febrile, medicated per OCT.
[2023-07-22] MEDS: cefTRIAXone sodium 1 GM in 0.9 % Sodium Chloride 50 ML IV (21:01)
[2023-07-22 21:04] LABS: Troponin-I High Sensitivity < 2.7 ng/L (<3.5-17.0)
[2023-07-22 21:16] LABS: Erythrocyte Sedimentation Rate 34 MM/HR (0-20)
[2023-07-22 21:29] LABS: HCG Quantitative < 2 mIU/mL
[2023-07-22] MEDS: vancomycin HCL 1,500 MG in 0.9 % Sodium Chloride 500 ML 333.33 MG IV (21:31)
--- NOTE | 2023-07-22 21:45 | PC.NURSE ---
Sepsis alert initiated by Molly Garcia at 2049.
[2023-07-22] MEDS: Ibuprofen 600 MG TABLET PO (21:48)
[2023-07-22 22:47] LABS: Appearance Urine Clear; Color Urine Yellow; Glucose Urine UA Negative (Negative); Leukocyte Esterase Urine Negative (Negative); Nitrite Urine Negative (Negative); PH 6.5 (5.0-9.0); UMIC TRIGGER UACC YES; Urine Blood Negative (Negative); Urine Ketones Trace mg/dL (Negative); Urine Protein 30 (1+) mg/dL (Neg-Trace)
[2023-07-22 22:48] LABS: UPreg QC Valid YES; Urine Pregnancy NEGATIVE (NEGATIVE)
[2023-07-22 22:53] LABS: Amphetamine Screen Urine Not Detected (Not Detect); Barbiturates, Urine Not Detected (Not Detect); Benzodiazepines Screen Urine Not Detected (Not Detect); Cannabinoid Screen Urine POSITIVE (Not Detect); Cocaine Screen Urine POSITIVE (Not Detect); Fentanyl, urine POSITIVE (Not Detect); Opiate Screen Urine POSITIVE (Not Detect); Phencyclidine Screen Urine Not Detected (Not Detect)
[2023-07-22 23:10] LABS: Bacteria Urine 1+ (None Seen); Hyaline Casts Urine 0-2 /LPF (0-2); WBC Urine 0-5 /HPF (0-5)
[2023-07-23] VITALS (8 sets, daily range): BP systolic 107–147; BP diastolic 65–88; PULSE 54–80; RESP 15–18; TEMP 36.7–37.2; O2SAT 96–100
[2023-07-23] MEDS: iohexoL 350 MG/ML 100 ML INFUS..BTL 85 ML IV (00:09)
--- NOTE | 2023-07-23 01:49 | P.HPHOSP_ITS ---
History of Present Illness Date of Service: 07/23/23 Chief Complaint: Diarrhea, nausea, weakness 38-year-old female past medical history of IV drug use comes into the hospital with complaints of nausea, vomiting, diarrhea, and feeling sick for the past week. Patient reports that her symptoms worsened, now she is not tolerating any p.o. intake, feels generally unwell. She injects on her arms, feels feverish, has some chills Reports no chest pain, no shortness of breath, no abdominal pain, no urinary symptoms and no lower extremity edema On arrival to the ED patient febrile with fever of 101.9, heart rate of 106, blood pressure stable Labs are significant for WBC count of 18.8, ESR 34, sodium of 134, C-reactive protein of 22.93, UA negative for acute infection, urine drug screen positive for opioids, fentanyl, cocaine and marijuana COVID and influenza as well as RSV negative Given patient's highest risk for bacteremia patient will be admitted for further management and started on IV antibiotics Review of Systems 2 Review of Systems: Yes all other systems are reviewed and are negative ON LICENSE OF [facility] Medical History Polysubstance abuse IV drug user Alcohol intake: current Patient Tobacco Use Status: Current everyday Tobacco user Substance Use Type: Crack/Cocaine and Heroin Advance Directives: No Advance Directives Information Provided: Yes Nutrition Risks: No Nutritional Risk Meds Allergies Allergy/AdvReac Type Severity Reaction Status Date / Time No Known Allergies Allergy Verified 07/22/23 22:50 [No Known Allergies*] Home Medications Medication Instructions Recorded Confirmed Last Taken Type No Known Home Meds 07/22/23 07/22/23 Unknown History Physical Exam 2 Vital Signs and Narrative: Vital Signs: Last Vital Signs Temp 98.3 F 07/23/23 00:00 Pulse 80 07/23/23 00:00 Resp 15 07/23/23 00:00 BP 107/70 07/23/23 00:00 Pulse Ox 98 07/23/23 00:00 O2 Del Method Room Air 07/23/23 00:00 BMI result Body Mass Index 20.5 Const: Other: Appears ill Cachectic General: cooperative Orientation/consciousness: patient oriented x3 Eyes: General: appearance normal, both eyes and all related structures Resp: Effort & Inspection: normal respiratory effort Auscultation: clear to auscultation bilaterally Cardio: Rate: regular rate Rhythm: regular rhythm GI: Palpation (GI): Soft to palpation Auscultation: normal bowel sounds Skin: Other: Track zuluaga on her arms bilaterally Neuro: General: patient oriented x3 Cognition (Neuro): normal cognition Extrem: General: Yes normal to inspection and Yes no pedal edema Results Labs 07/23/23 04:46 07/23/23 04:46 Labs: Laboratory Results - last 24 hr 07/22/23 07/22/23 07/22/23 19:44 20:23 20:25 MCV 87.3 MCH 29.9 MCHC 34.2 RDW 13.8 Plt Count 411 H MPV 8.8 L Immature Gran % (Auto) 0.4 Neut % (Auto) 87.6 H Lymph % (Auto) 4.8 L [place] % (Auto) 6.8 Eos % (Auto) 0.1 Baso % (Auto) 0.3 Lymph # (Auto) 0.9 L [place] # (Auto) 1.3 H Eos # (Auto) 0.0 Baso # (Auto) 0.1 Abs Immat Gran (auto) 0.08 H Absolute Neuts (auto) 16.5 H Absolute Nucleated RBC 0.000 Nucleated RBC % (auto) 0.0 ESR 34 H Anion Gap 13 Estim Creat Clear Calc 85.3 Estimated GFR > 60 Random Glucose 113 Lactic Acid 0.9 Calcium 9.6 Total Bilirubin 0.8 AST 10 ALT 11 Alkaline Phosphatase 92 C-Reactive Protein 22.93 H Total Protein 8.0 Albumin 3.8 Lipase 24 Beta HCG, Quant < 2 Urine Color Urine Appearance Urine pH Ur Specific [place] Urine Protein Urine Glucose (UA) Urine Ketones Urine Blood Urine Nitrite Ur Leukocyte Esterase Urine RBC Urine WBC Ur Squamous Epith Cells Urine Bacteria Hyaline Casts Urine Test Urine Opiates Screen Urine Fentanyl Screen Ur Barbiturates Screen Ur Phencyclidine Scrn Ur Amphetamines Screen U Benzodiazepines Scrn Urine Cocaine Screen U Marijuana (THC) Screen Ethyl Alcohol < 10 Influenza Type A (PCR) NEGATIVE Influenza Type B (PCR) NEGATIVE RSV RNA Qual (PCR) NEGATIVE SARS-CoV-2 RNA (RT-PCR) NEGATIVE 07/22/23 22:40 MCV MCH MCHC RDW Plt Count MPV Immature Gran % (Auto) Neut % (Auto) Lymph % (Auto) [place] % (Auto) Eos % (Auto) Baso % (Auto) Lymph # (Auto) [place] # (Auto) Eos # (Auto) Baso # (Auto) Abs Immat Gran (auto) Absolute Neuts (auto) Absolute Nucleated RBC Nucleated RBC % (auto) ESR Anion Gap Estim Creat Clear Calc Estimated GFR Random Glucose Lactic Acid Calcium Total Bilirubin AST ALT Alkaline Phosphatase C-Reactive Protein Total Protein Albumin Lipase Beta HCG, Quant Urine Color Yellow Urine Appearance Clear Urine pH 6.5 Ur Specific [place] 1.020 Urine Protein 30 (1+) H Urine Glucose (UA) Negative Urine Ketones Trace Urine Blood Negative Urine Nitrite Negative Ur Leukocyte Esterase Negative Urine RBC 3-5 H Urine WBC 0-5 Ur Squamous Epith Cells 11-20 Urine Bacteria 1+ Hyaline Casts 0-2 Urine Test NEGATIVE Urine Opiates Screen POSITIVE H Urine Fentanyl Screen POSITIVE H Ur Barbiturates Screen Not Detected Ur Phencyclidine Scrn Not Detected Ur Amphetamines Screen Not Detected U Benzodiazepines Scrn Not Detected Urine Cocaine Screen POSITIVE H U Marijuana (THC) Screen POSITIVE H Ethyl Alcohol Influenza Type A (PCR) Influenza Type B (PCR) RSV RNA Qual (PCR) SARS-CoV-2 RNA (RT-PCR) Imaging Radiologist's Impressions: Impressions Chest X-Ray 07/22/23 19:17 IMPRESSION: No acute intrathoracic disease. Some nodular densities are seen as described above. These may or may not be in the lungs. A CT scan of the chest could be performed for further evaluation. Abdomen/Pelvis CT 07/23/23 00:05 IMPRESSION: 1. A cause for the patient's diarrhea and abdominal pain has not been found. 2. Incidental note made of hepatosplenomegaly, colonic diverticulosis without diverticulitis, chronic pelvic fractures and degenerative changes in the spine with scoliosis. Fleischner guidelines were followed. Assessment and Plan (1) Sepsis: Qualifiers: Sepsis type: sepsis due to unspecified organism Sepsis acute organ dysfunction status: without acute organ dysfunction Qualified Code(s): A41.9 - Sepsis, unspecified organism Status: Acute (2) Nausea & vomiting: Qualifiers: Vomiting type: unspecified Qualified Code(s): R11.2 - Nausea with vomiting, unspecified Status: Inactive (3) IV drug user: Status: Acute (4) Polysubstance abuse: Status: Acute Plan This is a 38-year-old female with history of positive since abuse comes into the hospital with nausea vomiting, diarrhea, as well as feeling generally unwell # sepsis - has leukocytosis, tachycardia, febrile - given her history of IV drug use, possibly bacteremia - UA negative, chest x-ray showing abnormal findings nodular densities, - will obtain CT of the chest - started on broad-spectrum IV antibiotics - follow cultures # nausea vomiting - possibly cyclic vomiting syndrome versus acute infection gastroenteritis - CT abdomen , pelvic negative - GI panel as well as C diff pending - antiemetics, IV fluids # IV drug users/polysubstance abuse - will obtain echocardiogram - chest CT given nodules seen on x-ray concerning for possible septic emboli - will treat with IV antibiotics - addiction medicine consulted DVT prophylaxis: Lovenox Given patient's sepsis requiring IV antibiotics patient will require minimum 2 inpatient hospital stay for further management and monitoring Quality Stroke Does the patient have a stroke diagnosis?: No VTE Prior VTE?: No VTE Risk Level:: Medical - moderate - high VTE Device Contraindication: Treatment Not Indicated VTE Drug Contraindication: N/A - Med Ordered
[2023-07-23] MEDS: Piperacillin Sodium/Tazobactam 3.375 GM in 0.9 % Sodium Chloride 50 ML IV ×4 (02:32→19:58)
--- NOTE | 2023-07-23 02:58 | PC.NURSE ---
Pt ambulated independently to BR with steady gait.
[2023-07-23 06:03] LABS: MANUAL DIFF FLAG NO
[2023-07-23 06:22] LABS: Alanine Aminotransferase 8 U/L (0-31); Albumin Level 3.2 g/dL (3.5-5.0); Alkaline Phosphatase 84 U/L (39-117); Anion Gap 11 (12-20); Aspartate Amino Transferase 9 U/L (5-31); Bilirubin Total 0.9 mg/dL (0.0-1.0); Blood Urea Nitrogen 15 mg/dL (9-16); Carbon Dioxide 25 mmol/L (22-29); Chloride 103 mmol/L (96-108); Creatinine Clr Calc Pharmacy 92.4; Estimated Glomerular Filt Rate > 60; Glucose Random 99 mg/dL (60-115); Potassium 3.4 mmol/L (3.3-5.1); Sodium 136 mmol/L (135-145); Total Protein 6.8 g/dL (6.5-8.0)
[2023-07-23 06:27] LABS: Basophils Absolute Auto 0.1 X10*3/uL (0.0-0.2); Basophils Percent Auto 0.3 % (0-2); Eosinophils Percent Auto 0.3 % (0-4); Hematocrit 37.6 % (37.0-47.0); Hemoglobin 12.5 g/dl (12.0-16.0); Imm Gran Abs Auto 0.13 X10*3/uL (0.00-0.03); Imm Gran Pct Auto 0.8 % (0.0-0.4); Lymphocytes Absolute Auto 0.9 X10*3/uL (1.2-4.9); Lymphocytes Percent Auto 5.7 % (20-40); Mean Corpuscular HGB Conc 33.2 g/dl (31.0-35.0); Mean Corpuscular Hemoglobin 29.3 pg (27.0-33.0); Mean Corpuscular Volume 88.3 fL (80.0-98.0); Mean Platelet Volume 9.2 fL (9.4-12.3); Monocytes Absolute Auto 1.3 X10*3/uL (0.1-1.2); Monocytes Percent Auto 8.6 % (2-11); Neutrophils Absolute Auto 13.1 x10*3/uL (2.0-8.3); Neutrophils Percent Auto 84.3 % (45-73); Platelet Count 375 X10*3/uL (160-400); Red Blood Count 4.26 X10*6/uL (4.20-5.50); White Blood Count 15.5 X10*3/uL (4.8-10.8)
--- NOTE | 2023-07-23 06:54 | PHA.PROG ---
Admission Date/Time: July 23, 2023 01:47 Indication: Bacteremia Weight in k.8 kg Adjusted body weight in Kg: [place] body weight in Kg: Obesity Dosing Indication % IBW: Serum Creatinine - Last 168 Hours 07/22/23 07/23/23 20:25 04:46 Creatinine 0.78 0.72 Estimated CrCl and GFR - Last 168 Hours 07/22/23 07/23/23 20:25 04:46 Estim Creat Clear Calc 85.3 92.4 Estimated GFR > 60 > 60 Vancomycin Loading Dose: 1500mg x 1 Current Vancomycin Dosing Regimen: 1000mg Q12H Vancomycin Monitoring using AUC goal of 400 - 600 range with trough as surrogate marker: 544 mg/L Date and Time for next Vancomycin Level to be drawn: 07/24/23 @0700 Pharmacist Comments on Vancomycin Plan: Patient is small but with good renal function. Predicted trough of 16.1 mg/L. Vancomycin dosing will take advantage of [employer] as a clinical decision support tool that uses Bayesian modeling to calculate individual patient's pharmacokinetic parameters and forecast the patient's drug concentration time course with the target goal AUC 24 range of 400 - 600 mg/L/hr.
--- NOTE | 2023-07-23 07:00 | CA_ITS ---
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 Normal LV ejection fraction 55-60% 2. No obvious vegetations seen on this study 3. Normal cardiac valvular Doppler 4. No gross pericardial effusion Findings Left Ventricle Normal left ventricular size, thickness, and systolic function. The visually estimated ejection fraction is between 55-60%. Spectral Doppler is indicative of a normal filling pattern. Right Ventricle Normal right ventricular cavity size and systolic function. Atria The left atrium is mildly dilated. There is no evidence of interatrial shunt. The right atrium is normal in size. Aortic Valve The aortic valve structure and function is likely normal. There is no aortic valve stenosis. There is no aortic valve regurgitation. Mitral Valve There is mild anterior and posterior mitral leaflet thickening. There is trace mitral valve regurgitation. There is no mitral valve stenosis. Pulmonic Valve The pulmonic valve was not well visualized. Tricuspid Valve Likely normal tricuspid valve structure and function. There is trace tricuspid valve regurgitation. Tricuspid regurgitation envelope is inadequate for calculation of right ventricular systolic pressure. Normal right atrial pressure. Great Vessels The aorta was not well visualized. The pulmonary artery was not well visualized. Venous The inferior vena cava is normal in size. Pericardium/Pleural There is no evidence of pericardial effusion. Prior Study Comparison No prior study available for comparison. Recommendations, Care & Conclusions Consider a LAURA if clinically appropriate. Measurements 2D Linear Measurements IVSd: 0.96 0.6-0.9/0.6-1.0 cm LVIDd: 5.43 3.9-5.3/4.2-5.9 cm LVIDd Index: 3.37 2.4-3.2/2.2-3.1 cm/m2 LVIDs: 2.97 2.0-3.6 cm LVPWd: 1.00 0.7-1.1 cm Ao Root: 3.60 2.1-3.5 cm LA Diam: 3.20 2.7-3.8/3.0-4.0 cm LAIDs Index: 1.99 1.5-2.3 cm/m2 LV Mass: 253.39 67-162/88-224 g LV Mass Index: 157.39 43-95/49-115 g/m2 LVOT Diam: 2.20 3.0+(-)1.3 cm 2D Systolic Function EF 4C: 56.10 >55% EF 2C: 59.70 >55% EF BiP: 56.40 >55% Mitral Valve MV Pk E: 0.72 MV PK A: 0.43 MV Decel Time: 251.00 E/A: 1.70 E'Lateral: 11.20 E'Medial: 11.30 E/E' Med: 6.30 E/E' Lat: 6.40 PHT: 74.00 MVA PHT: 2.97 Decel [place]: 2.85 Aortic Valve AoV Pk Zbigniew: 1.33 AoV Mn Zbigniew: 0.88 AoV VTI: 0.34 AoV Pk Grad: 7.00 Aov Mn Grad: 4.00 DANIELE Cont.VTI: 2.14 LVOT LVOT Pk Zbigniew: 0.85 LVOT Mn Zbigniew: 0.55 LVOT VTI: 0.19 LVOT Pk Grad: 3.00 LVOT Mn Grad: 1.00 LVOT Diam: 2.20 LVOT Area: 3.80 Diastolic Function MV Pk E: 0.72 MV Pk A: 0.43 E/A: 1.70 E'Medial: 11.30 E/E' Med: 6.30 E' Laterial: 11.20 E/E' Lat: 6.40 Right Ventricle TAPSE (mm): 27.00 TVS' Zbigniew: 17.00 Tricuspid Valve TR Pk Zbigniew: 1.87 TR Pk Grad: 14.00 RA Press: 3.00 Great Vessels Aorta Ao Root-2D: 3.60 2.0-3.7 cm Pulmonary Valve PV Pk Zbigniew: 0.76 Peak PV Grad: 2.00 Updated in Other Vendor System with Status of Final Jorge Anna MD electronically signed on 07/23/2023 2:39:43 PM with status of Final
--- NOTE | 2023-07-23 07:07 | PHA.MEDREC ---
Pharmacy Consult ? Medication Reconciliation Pharmacy has reviewed the medication reconciliation.
--- NOTE | 2023-07-23 07:11 | PC.NURSE ---
Pt release form signed and faxed for methadone dosage at [facility]. Pt states I might need a starter dose, I haven't been there since Sunday or longer .
--- NOTE | 2023-07-23 07:25 | PC.NURSE ---
tisha boland called back to verify pt's last dose. pt was not at the clinic since december 08 2022 and is no longer a client there.
[2023-07-23] MEDS: ondansetron HCL 4 MG/2 ML VIAL IVPUSH (07:58)
--- NOTE | 2023-07-23 08:00 | PC.NURSE ---
pt is alert and oriented, skin pwd, respirations even and unlabored, ls clear, pt is vomiting states that she used heroin yesterday one bag but typically uses 10 bags, reports feeling sick and leg/generalized pain 9/10. pt is requesting to get started back up methadone. vs stable at this time
[2023-07-23] MEDS: 0.9 % Sodium Chloride Flush 3 ML SYRINGE IVFLUSH ×3 (08:09→19:59)
[2023-07-23] MEDS: vancomycin HCL 1,000 MG in 0.9 % Sodium Chloride 250 ML 270 MG IV ×2 (09:27→21:14)
[2023-07-23] MEDS: methADONE HCl 20 MG/2 ML ORAL.CONC 30 MG PO (09:29)
--- NOTE | 2023-07-23 09:35 | HO.PM.IMPN ---
Subjective Subjective Date of Service: 07/23/23 Interval History: opiate withdrawal Physical Exam Vital Signs: Vital Signs: Last Vital Signs Temp 98.0 F 07/23/23 08:04 Pulse 55 07/23/23 08:04 Resp 18 07/23/23 08:04 BP 136/88 07/23/23 08:04 Pulse Ox 96 07/23/23 08:04 O2 Del Method Room Air 07/23/23 08:04 BMI result Body Mass Index 20.5 lethargic oriented times 3, ill appearing Objective Data Active Medications Acetaminophen (Acetaminophen 325 Mg Tablet) 650 mg PO Q6H PRN PRN Reason: Pain, Mild (Pain Scale 1-3) Docusate Sodium (Docusate Sodium 100 Mg Capsule) 100 mg PO DAILY PRN PRN Reason: Constipation Piperacillin Sod/Tazobactam (Sod 3.375 gm/ Sodium Chloride) 50 mls @ 100 mls/hr IV Q6H [facility] Last Infusion: 07/23/23 08:50 Dose: Infused Documented By: DEUCE Vancomycin HCl 1,000 mg/ (Sodium Chloride) 270 mls @ 270 mls/hr IV Q12H [facility] Last Admin: 07/23/23 09:27 Dose: 270 mls/hr Documented By: DEUCE Ondansetron HCl (Ondansetron Hcl 4 Mg/2 Ml Vial) 4 mg IVPUSH Q8H PRN PRN Reason: Nausea and Vomiting Last Admin: 07/23/23 07:58 Dose: 4 mg Documented By: STUART Pharmacy Consult (Consult Rx Vancomycin Dosing) 1 each MISCELLANE DAILY PRN PRN Reason: Consult order Sodium Chloride (0.9 % Sodium Chloride Flush 3 Ml Syringe) 3 ml IVFLUSH QSHIFT [facility] Last Admin: 07/23/23 08:09 Dose: 3 ml Documented By: DEUCE Labs 07/23/23 04:46 07/23/23 04:46 Labs: Laboratory Results - last 24 hr 07/22/23 07/22/23 07/22/23 19:44 20:23 20:25 MCV 87.3 MCH 29.9 MCHC 34.2 RDW 13.8 Plt Count 411 H MPV 8.8 L Immature Gran % (Auto) 0.4 Neut % (Auto) 87.6 H Lymph % (Auto) 4.8 L [place] % (Auto) 6.8 Eos % (Auto) 0.1 Baso % (Auto) 0.3 Lymph # (Auto) 0.9 L [place] # (Auto) 1.3 H Eos # (Auto) 0.0 Baso # (Auto) 0.1 Abs Immat Gran (auto) 0.08 H Absolute Neuts (auto) 16.5 H Absolute Nucleated RBC 0.000 Nucleated RBC % (auto) 0.0 ESR 34 H Anion Gap 13 Estim Creat Clear Calc 85.3 Estimated GFR > 60 Random Glucose 113 Lactic Acid 0.9 Calcium 9.6 Total Bilirubin 0.8 AST 10 ALT 11 Alkaline Phosphatase 92 C-Reactive Protein 22.93 H Total Protein 8.0 Albumin 3.8 Lipase 24 Beta HCG, Quant < 2 Urine Color Urine Appearance Urine pH Ur Specific [place] Urine Protein Urine Glucose (UA) Urine Ketones Urine Blood Urine Nitrite Ur Leukocyte Esterase Urine RBC Urine WBC Ur Squamous Epith Cells Urine Bacteria Hyaline Casts Urine Test Urine Opiates Screen Urine Fentanyl Screen Ur Barbiturates Screen Ur Phencyclidine Scrn Ur Amphetamines Screen U Benzodiazepines Scrn Urine Cocaine Screen U Marijuana (THC) Screen Ethyl Alcohol < 10 Influenza Type A (PCR) NEGATIVE Influenza Type B (PCR) NEGATIVE RSV RNA Qual (PCR) NEGATIVE SARS-CoV-2 RNA (RT-PCR) NEGATIVE 07/22/23 07/23/23 22:40 04:46 MCV 88.3 MCH 29.3 MCHC 33.2 RDW 14.0 Plt Count 375 MPV 9.2 L Immature Gran % (Auto) 0.8 H Neut % (Auto) 84.3 H Lymph % (Auto) 5.7 L [place] % (Auto) 8.6 Eos % (Auto) 0.3 Baso % (Auto) 0.3 Lymph # (Auto) 0.9 L [place] # (Auto) 1.3 H Eos # (Auto) 0.0 Baso # (Auto) 0.1 Abs Immat Gran (auto) 0.13 H Absolute Neuts (auto) 13.1 H Absolute Nucleated RBC 0.000 Nucleated RBC % (auto) 0.0 ESR Anion Gap 11 L Estim Creat Clear Calc 92.4 Estimated GFR > 60 Random Glucose 99 Lactic Acid Calcium 9.0 D Total Bilirubin 0.9 AST 9 ALT 8 Alkaline Phosphatase 84 C-Reactive Protein Total Protein 6.8 Albumin 3.2 L Lipase Beta HCG, Quant Urine Color Yellow Urine Appearance Clear Urine pH 6.5 Ur Specific [place] 1.020 Urine Protein 30 (1+) H Urine Glucose (UA) Negative Urine Ketones Trace Urine Blood Negative Urine Nitrite Negative Ur Leukocyte Esterase Negative Urine RBC 3-5 H Urine WBC 0-5 Ur Squamous Epith Cells 11-20 Urine Bacteria 1+ Hyaline Casts 0-2 Urine Test NEGATIVE Urine Opiates Screen POSITIVE H Urine Fentanyl Screen POSITIVE H Ur Barbiturates Screen Not Detected Ur Phencyclidine Scrn Not Detected Ur Amphetamines Screen Not Detected U Benzodiazepines Scrn Not Detected Urine Cocaine Screen POSITIVE H U Marijuana (THC) Screen POSITIVE H Ethyl Alcohol Influenza Type A (PCR) Influenza Type B (PCR) RSV RNA Qual (PCR) SARS-CoV-2 RNA (RT-PCR) Microbiology Microbiology Results: Microbiology 07/22/23 20:25 Blood Culture - Preliminary Blood - Venous Prelim: GPC Gram Stain only 07/22/23 20:25 Blood Culture - Preliminary Blood - Venous Prelim: GPC Gram Stain only Assessment and Plan (1) Polysubstance abuse: Status: Acute Plan 38-year-old female with past medical history of IVDA presented with nausea vomiting, fevers Sepsis due to Gram-positive bacteremia in a patient who uses IV drugs Continue vancomycin Zosyn, follow-up cultures Echo Opiate dependence with withdrawal Addiction team eval DVT prophylaxis with Lovenox Full code Reason continue hospitalization: Bacteremia Quality Stroke Does the patient have a stroke diagnosis?: No VTE Prior VTE?: No VTE Risk Level:: Medical - moderate - high VTE Device Contraindication: Treatment Not Indicated VTE Drug Contraindication: N/A - Med Ordered
--- NOTE | 2023-07-23 10:37 | PC.NURSE ---
report given to med/surgical corsetier
[2023-07-23] MEDS: Enoxaparin Sodium 40 MG/0.4 ML SYRINGE SUBCUT (10:40)
--- NOTE | 2023-07-23 12:16 | MHC.CM.PN ---
pt reports being homel;ess referral has been made to addiction medicine ,and care team ,usp list given to pt
[2023-07-23] MEDS: methADONE HCl 20 MG/2 ML ORAL.CONC 10 MG PO (15:02)
--- NOTE | 2023-07-23 21:01 | HO.ADDICT_ITS ---
History of Present Illness Date of Service: 07/23/2023 Chief Complaint: IVDU, bacterimia Reason for Consult: OUD Sources of Information: patient interviewed and chart reviewed HPI Narrative: Patient is a 38 year old female with OUD currently medically admitted with sepsis. Consult requesting to address OUD. Chart reviewed--patient reporting withdrawal sx and noted to be vomiting this morning. Methadone 30mg ordered and administered. Patient seen in follow up 2 hours following dose adminsitration and she reported minimal symptom relief. She was laying on her side, blankets pulled up to her chin, ill appearing. She reported using 4-5 bundles of fentanyl daily. Last use prior to admission. She is reporting body aches, nausea. Reports previously in treatment with [facility]--methadone dose of 80mg. Would like to re-establish care with them at [facility]. Remainder of interview deferred as patient visibly uncomfrotable. Review of Systems Constitutional: Reports as per HPI, Reports body ache(s), Reports chills, Reports lethargy and Reports malaise Diagnostics Vital Signs (24Hr): Vital Signs - 24 hr 07/22/23 21:39 07/22/23 22:12 07/22/23 22:21 Temperature 100.4 F 99.9 F Pulse Rate 102 H 102 H 104 H Respiratory Rate 18 16 18 Blood Pressure 117/64 111/59 L 117/61 Pulse Oximetry 98 96 Oxygen Delivery Method Room Air Room Air 07/22/23 22:38 07/23/23 00:00 07/23/23 02:00 Temperature 98.3 F 98.2 F Pulse Rate 95 80 79 Respiratory Rate 16 15 16 Blood Pressure 122/77 107/70 114/69 Pulse Oximetry 95 98 98 Oxygen Delivery Method Room Air Room Air Room Air 07/23/23 04:41 07/23/23 08:04 07/23/23 11:23 Temperature 98.0 F 98.5 F Pulse Rate 78 55 54 Respiratory Rate 16 18 18 Blood Pressure 121/82 136/88 132/78 Pulse Oximetry 97 96 98 Oxygen Delivery Method Room Air Room Air Room Air 07/23/23 15:10 07/23/23 19:25 Temperature 98.7 F 98.7 F Pulse Rate 57 70 Respiratory Rate 16 18 Blood Pressure 128/65 147/82 H Pulse Oximetry 100 98 Oxygen Delivery Method Room Air Room Air BMI result Body Mass Index 20.5 Labs 07/23/23 04:46 07/23/23 04:46 Labs: Laboratory Results - last 48 hr 07/22/23 07/22/23 07/22/23 19:44 20:23 20:25 WBC 18.8 H RBC 4.42 Hgb 13.2 Hct 38.6 MCV 87.3 MCH 29.9 MCHC 34.2 RDW 13.8 Plt Count 411 H MPV 8.8 L Immature Gran % (Auto) 0.4 Neut % (Auto) 87.6 H Lymph % (Auto) 4.8 L [place] % (Auto) 6.8 Eos % (Auto) 0.1 Baso % (Auto) 0.3 Lymph # (Auto) 0.9 L [place] # (Auto) 1.3 H Eos # (Auto) 0.0 Baso # (Auto) 0.1 Abs Immat Gran (auto) 0.08 H Absolute Neuts (auto) 16.5 H Absolute Nucleated RBC 0.000 Nucleated RBC % (auto) 0.0 ESR 34 H Sodium 134 L Potassium 3.4 Chloride 97 Carbon Dioxide 27 Anion Gap 13 BUN 16 Creatinine 0.78 Estim Creat Clear Calc 85.3 Estimated GFR > 60 Random Glucose 113 Lactic Acid 0.9 Calcium 9.6 Total Bilirubin 0.8 AST 10 ALT 11 Alkaline Phosphatase 92 Troponin I High Sens < 2.7 C-Reactive Protein 22.93 H Total Protein 8.0 Albumin 3.8 Lipase 24 Beta HCG, Quant < 2 Urine Color Urine Appearance Urine pH Ur Specific [place] Urine Protein Urine Glucose (UA) Urine Ketones Urine Blood Urine Nitrite Ur Leukocyte Esterase Urine RBC Urine WBC Ur Squamous Epith Cells Urine Bacteria Hyaline Casts Urine Test Urine Opiates Screen Urine Fentanyl Screen Ur Barbiturates Screen Ur Phencyclidine Scrn Ur Amphetamines Screen U Benzodiazepines Scrn Urine Cocaine Screen U Marijuana (THC) Screen Ethyl Alcohol < 10 Influenza Type A (PCR) NEGATIVE Influenza Type B (PCR) NEGATIVE RSV RNA Qual (PCR) NEGATIVE SARS-CoV-2 RNA (RT-PCR) NEGATIVE 07/22/23 07/23/23 22:40 04:46 WBC 15.5 H RBC 4.26 Hgb 12.5 Hct 37.6 MCV 88.3 MCH 29.3 MCHC 33.2 RDW 14.0 Plt Count 375 MPV 9.2 L Immature Gran % (Auto) 0.8 H Neut % (Auto) 84.3 H Lymph % (Auto) 5.7 L [place] % (Auto) 8.6 Eos % (Auto) 0.3 Baso % (Auto) 0.3 Lymph # (Auto) 0.9 L [place] # (Auto) 1.3 H Eos # (Auto) 0.0 Baso # (Auto) 0.1 Abs Immat Gran (auto) 0.13 H Absolute Neuts (auto) 13.1 H Absolute Nucleated RBC 0.000 Nucleated RBC % (auto) 0.0 ESR Sodium 136 Potassium 3.4 Chloride 103 Carbon Dioxide 25 Anion Gap 11 L BUN 15 Creatinine 0.72 Estim Creat Clear Calc 92.4 Estimated GFR > 60 Random Glucose 99 Lactic Acid Calcium 9.0 D Total Bilirubin 0.9 AST 9 ALT 8 Alkaline Phosphatase 84 Troponin I High Sens C-Reactive Protein Total Protein 6.8 Albumin 3.2 L Lipase Beta HCG, Quant Urine Color Yellow Urine Appearance Clear Urine pH 6.5 Ur Specific [place] 1.020 Urine Protein 30 (1+) H Urine Glucose (UA) Negative Urine Ketones Trace Urine Blood Negative Urine Nitrite Negative Ur Leukocyte Esterase Negative Urine RBC 3-5 H Urine WBC 0-5 Ur Squamous Epith Cells 11-20 Urine Bacteria 1+ Hyaline Casts 0-2 Urine Test NEGATIVE Urine Opiates Screen POSITIVE H Urine Fentanyl Screen POSITIVE H Ur Barbiturates Screen Not Detected Ur Phencyclidine Scrn Not Detected Ur Amphetamines Screen Not Detected U Benzodiazepines Scrn Not Detected Urine Cocaine Screen POSITIVE H U Marijuana (THC) Screen POSITIVE H Ethyl Alcohol Influenza Type A (PCR) Influenza Type B (PCR) RSV RNA Qual (PCR) SARS-CoV-2 RNA (RT-PCR) Imaging Radiology Impressions: ITS Impressions Chest X-Ray 07/22/23 19:17 IMPRESSION: No acute intrathoracic disease. Some nodular densities are seen as described above. These may or may not be in the lungs. A CT scan of the chest could be performed for further evaluation. Abdomen/Pelvis CT 07/23/23 00:05 IMPRESSION: 1. A cause for the patient's diarrhea and abdominal pain has not been found. 2. Incidental note made of hepatosplenomegaly, colonic diverticulosis without diverticulitis, chronic pelvic fractures and degenerative changes in the spine with scoliosis. Fleischner guidelines were followed. Mental Status Exam Mental Status Exam Level of Consciousness: Awake and Appropriate Medications Medications Current Medications Acetaminophen (Acetaminophen 325 Mg Tablet) 650 mg PO Q6H PRN PRN Reason: Pain, Mild (Pain Scale 1-3) Docusate Sodium (Docusate Sodium 100 Mg Capsule) 100 mg PO DAILY PRN PRN Reason: Constipation Enoxaparin Sodium (Enoxaparin Sodium 40 Mg/0.4 Ml Syringe) 40 mg SUBCUT Q24H [facility] Last Admin: 07/23/23 10:40 Dose: 40 mg Piperacillin Sod/Tazobactam (Sod 3.375 gm/ Sodium Chloride) 50 mls @ 100 mls/hr IV Q6H [facility] Last Infusion: 07/23/23 20:37 Dose: Infused Vancomycin HCl 1,000 mg/ (Sodium Chloride) 270 mls @ 270 mls/hr IV Q12H [facility] Last Infusion: 07/23/23 10:40 Dose: Infused Methadone HCl (Methadone Hcl 20 Mg/2 Ml Oral.Conc) 50 mg PO DAILY [facility] Ondansetron HCl (Ondansetron Hcl 4 Mg/2 Ml Vial) 4 mg IVPUSH Q8H PRN PRN Reason: Nausea and Vomiting Last Admin: 07/23/23 07:58 Dose: 4 mg Pharmacy Consult (Consult Rx Vancomycin Dosing) 1 each MISCELLANE DAILY PRN PRN Reason: Consult order Sodium Chloride (0.9 % Sodium Chloride Flush 3 Ml Syringe) 3 ml IVFLUSH QSHIFT [facility] Last Admin: 07/23/23 19:59 Dose: 3 ml Allergies Allergies Allergy/AdvReac Type Severity Reaction Status Date / Time No Known Allergies Allergy Verified 07/22/23 22:50 [No Known Allergies*] Assessment & Plan Assessment & Plan (1) Opioid use disorder: Status: Acute Code(s): F11.90 - Opioid use, unspecified, uncomplicated Assessment and Plan: * additional dose methadone 10mg * AM dose methadone 50mg * HR in the 50's-clonidine not appropriate * may require additional opiates during dose titration * will continue to follow Total time managing care of this patient today _30___ minutes. PMFSH Past Medical History Medical History Polysubstance abuse IV drug user Social History Household Members: None Housing: Homeless Do you presently have visiting nurse or other home services: No Alcohol intake: current Patient Tobacco Use Status: Current everyday Tobacco user Tobacco use type: Cigarette Substance Use Type: Crack/Cocaine, Heroin, Marijuana and Opiates service: No
--- NOTE | 2023-07-23 22:23 | MHC.PIE ---
Addendum entered by Ella Harmon RN 07/24/23 01:28: p; pt cont to c/o pain askikng for iv tylenol i; dr mejia notified. new order iv tylenol now e; will cont to monitor Original Note: p; pt co pain 10/10 generalized throughout body asking for more pain meds other than tylenol. i; dr mejia notified, md spoke with pt in room p; pt cont to c/o pain, pt now reports wanting iv meds d/t i can't handle anything in stomach i; dr mejia notified e; will cont to monitor
[2023-07-24] MEDS: Acetaminophen 1,000 MG/100 ML PIGGYBACK 400 MG IV (00:32)
[2023-07-24] MEDS: Piperacillin Sodium/Tazobactam 3.375 GM in 0.9 % Sodium Chloride 50 ML IV ×3 (00:34→13:17)
[2023-07-24 02:10] LABS: CDiff Gene PCR NEGATIVE (Negative)
[2023-07-24 04:00] VITALS: BP 143/89; PULSE 67; RESP 18; TEMP 37; O2SAT 97
[2023-07-24 06:57] LABS: Anion Gap 11 (12-20); Blood Urea Nitrogen 16 mg/dL (9-16); Carbon Dioxide 24 mmol/L (22-29); Chloride 105 mmol/L (96-108); Creatinine Clr Calc Pharmacy 97.8; Estimated Glomerular Filt Rate > 60; Glucose Fasting 124 mg/dL (60-99); Potassium 3.3 mmol/L (3.3-5.1); Sodium 137 mmol/L (135-145)
[2023-07-24 07:28] VITALS: BP 138/90; PULSE 50; RESP 16; TEMP 36.6; O2SAT 100
[2023-07-24] MEDS: 0.9 % Sodium Chloride Flush 3 ML SYRINGE IVFLUSH ×2 (07:31→21:59)
[2023-07-24] MEDS: methADONE HCl 20 MG/2 ML ORAL.CONC 50 MG PO (08:10)
--- NOTE | 2023-07-24 08:54 | HO.PM.IMPN ---
Subjective Subjective Date of Service: 07/24/23 Interval History: body aches Physical Exam Vital Signs: Vital Signs: Last Vital Signs Temp 97.9 F 07/24/23 07:28 Pulse 50 07/24/23 07:28 Resp 16 07/24/23 07:28 BP 138/90 H 07/24/23 07:28 Pulse Ox 100 07/24/23 07:28 O2 Del Method Room Air 07/24/23 07:28 BMI result Body Mass Index 20.5 General: AO X 3, no acute distress Resp: CTA bilateral, no accessory muscles used CVS: S1,S2,RRR GI: soft, non tender, non distended Neuro: motor grossly intact, alert Psych: appropriate affect, appropriate insight Objective Data Active Medications Acetaminophen (Acetaminophen 325 Mg Tablet) 650 mg PO Q6H PRN PRN Reason: Pain, Mild (Pain Scale 1-3) Docusate Sodium (Docusate Sodium 100 Mg Capsule) 100 mg PO DAILY PRN PRN Reason: Constipation Enoxaparin Sodium (Enoxaparin Sodium 40 Mg/0.4 Ml Syringe) 40 mg SUBCUT Q24H [facility] Last Admin: 07/23/23 10:40 Dose: 40 mg Documented By: DEUCE Piperacillin Sod/Tazobactam (Sod 3.375 gm/ Sodium Chloride) 50 mls @ 100 mls/hr IV Q6H [facility] Last Admin: 07/24/23 07:28 Dose: 100 mls/hr Documented By: ALEXSANDRA Vancomycin HCl 1,000 mg/ (Sodium Chloride) 270 mls @ 270 mls/hr IV Q12H [facility] Last Infusion: 07/23/23 22:38 Dose: Infused Documented By: TAVIA Methadone HCl (Methadone Hcl 20 Mg/2 Ml Oral.Conc) 50 mg PO DAILY [facility] Last Admin: 07/24/23 08:10 Dose: 50 mg Documented By: ALEXSANDRA Ondansetron HCl (Ondansetron Hcl 4 Mg/2 Ml Vial) 4 mg IVPUSH Q8H PRN PRN Reason: Nausea and Vomiting Last Admin: 07/23/23 07:58 Dose: 4 mg Documented By: STUART Pharmacy Consult (Consult Rx Vancomycin Dosing) 1 each MISCELLANE DAILY PRN PRN Reason: Consult order Sodium Chloride (0.9 % Sodium Chloride Flush 3 Ml Syringe) 3 ml IVFLUSH QSHIFT [facility] Last Admin: 07/24/23 07:31 Dose: 3 ml Documented By: ALEXSANDRA Labs 07/23/23 04:46 07/24/23 06:07 Labs: Laboratory Results - last 24 hr 07/24/23 07/24/23 06:07 Unknown Anion Gap 11 L Estim Creat Clear Calc 97.8 Estimated GFR > 60 Fasting Glucose 124 H Calcium 9.0 C. difficile Tox B Gene NEGATIVE Microbiology Microbiology Results: Microbiology 07/22/23 20:25 Blood Culture - Preliminary Blood - Venous Prelim: GPC Gram Stain only 07/22/23 20:25 Blood Culture - Preliminary Blood - Venous Prelim: GPC Gram Stain only Assessment and Plan (1) Polysubstance abuse: Status: Acute Plan 38-year-old female with past medical history of IVDA presented with nausea vomiting, fevers Sepsis due to Gram-positive bacteremia in a patient who uses IV drugs Continue vancomycin Zosyn, follow-up repeat cultures Echo with no obvious vegetations check hiv and viral hepatitis panel id eval Opiate dependence with withdrawal Addiction team eval DVT prophylaxis with Lovenox Full code Reason continue hospitalization: Bacteremia Quality Stroke Does the patient have a stroke diagnosis?: No VTE Prior VTE?: No VTE Risk Level:: Medical - moderate - high VTE Device Contraindication: Treatment Not Indicated VTE Drug Contraindication: N/A - Med Ordered
[2023-07-24 08:57] LABS: Hematocrit 36.6 % (37.0-47.0); Hemoglobin 12.7 g/dl (12.0-16.0); Mean Corpuscular HGB Conc 34.7 g/dl (31.0-35.0); Mean Corpuscular Hemoglobin 29.9 pg (27.0-33.0); Mean Corpuscular Volume 86.1 fL (80.0-98.0); Mean Platelet Volume 9.3 fL (9.4-12.3); Platelet Count 430 X10*3/uL (160-400); Red Blood Count 4.25 X10*6/uL (4.20-5.50); Red Cell Distribution Width 13.8 % (11.0-16.0); White Blood Count 19.7 X10*3/uL (4.8-10.8)
[2023-07-24 09:14] LABS: Vancomycin Trough 5.8 mcg/mL (10.0-20.0)
--- NOTE | 2023-07-24 09:26 | HE.PHANOTE ---
RE: VANCO patients level came back this morning at 5.8. Patients renal has improved. current dose is sub therapeutic. increased to 1500 mg Q12H from 1000 mg Q12H due to bacteremia as the indication. predicted AUC 546. will get a level after 2 doses to ensure safety vs efficacy
[2023-07-24] MEDS: vancomycin HCL 1,500 MG in 0.9 % Sodium Chloride 500 ML 333.33 MG IV ×2 (09:28→21:57)
--- NOTE | 2023-07-24 10:47 | MHC.RECOVRN ---
Met with pt in 347 to follow up after receiving 50 mg methadone this morning. Pt laying in bed, eyes closed, difficult to engage in conversation, states I'm just trying to sleep. Appears slightly diaphoretic, not restless. Pt continues to keep eyes closed throughout conversation. Pt reports methadone helped a little however, continues to have withdrawal symptoms including runny nose, tearing, inability to sleep, and body aches. Pt would like to continue methadone titration. Denies questions or concerns for t/w.
--- NOTE | 2023-07-24 10:56 | MHC.RECOVRN ---
Pts referral sent to [facility] to continue care after discharge.
[2023-07-24 12:00] VITALS: BP 126/79; PULSE 53; RESP 16; TEMP 37.7; O2SAT 98
--- NOTE | 2023-07-24 14:10 | P.CNID_ITS ---
History of Present Illness Data of Consult Service Date: 07/24/23 Requesting physician: Dioni Estrada Primary Care Provider: Unknown Physician HPI Reason for consult: staph aureus bacteremia She presents with nausea and vomiting for a week. She has 07/22 staph aureus. She had fever and chills as well. Review of Systems 2 Review of Systems: Yes all other systems are reviewed and are negative PMFSH Past Medical History Medical History Polysubstance abuse IV drug user Family History Family history: reviewed and not pertinent Social History Social History Household Members: None Housing: Homeless Do you presently have visiting nurse or other home services: No Alcohol intake: current Patient Tobacco Use Status: Current everyday Tobacco user Tobacco use type: Cigarette Substance Use Type: Crack/Cocaine, Heroin, Marijuana and Opiates service: No Meds Allergies Allergy/AdvReac Type Severity Reaction Status Date / Time No Known Allergies Allergy Verified 07/22/23 22:50 [No Known Allergies*] Active Medications: Current Medications Acetaminophen (Acetaminophen 325 Mg Tablet) 650 mg PO Q6H PRN PRN Reason: Pain, Mild (Pain Scale 1-3) Docusate Sodium (Docusate Sodium 100 Mg Capsule) 100 mg PO DAILY PRN PRN Reason: Constipation Enoxaparin Sodium (Enoxaparin Sodium 40 Mg/0.4 Ml Syringe) 40 mg SUBCUT Q24H [facility] Last Admin: 07/24/23 09:06 Dose: Not Given Vancomycin HCl 1,500 mg/ (Sodium Chloride) 500 mls @ 333.333 mls/hr IV Q12H [facility] Last Infusion: 07/24/23 12:10 Dose: Infused Methadone HCl (Methadone Hcl 20 Mg/2 Ml Oral.Conc) 50 mg PO DAILY [facility] Last Admin: 07/24/23 08:10 Dose: 50 mg Ondansetron HCl (Ondansetron Hcl 4 Mg/2 Ml Vial) 4 mg IVPUSH Q8H PRN PRN Reason: Nausea and Vomiting Last Admin: 07/23/23 07:58 Dose: 4 mg Pharmacy Consult (Consult Rx Vancomycin Dosing) 1 each MISCELLANE DAILY PRN PRN Reason: Consult order Sodium Chloride (0.9 % Sodium Chloride Flush 3 Ml Syringe) 3 ml IVFLUSH QSHIFT [facility] Last Admin: 07/24/23 07:31 Dose: 3 ml Home Medications Medication Instructions Recorded Confirmed Last Taken Type No Known Home Meds 07/22/23 07/22/23 Unknown History Physical Exam 2 Vital Signs: Vital Signs: Last Vital Signs Temp 99.8 F 07/24/23 12:00 Pulse 53 07/24/23 12:00 Resp 16 07/24/23 12:00 BP 126/79 07/24/23 12:00 Pulse Ox 98 07/24/23 12:00 O2 Del Method Room Air 07/24/23 12:00 BMI result Body Mass Index 20.5 Const: Other: very emaciated appearing,various scabs on legs Results Labs 07/24/23 08:15 07/24/23 06:07 Labs: Short CBC 07/24/23 Range/Units 08:15 WBC 19.7 H (4.8-10.8) X10*3/uL Hgb 12.7 (12.0-16.0) g/dl Hct 36.6 L (37.0-47.0) % Plt Count 430 H (160-400) X10*3/uL BMP 07/24/23 06:07 Sodium 137 Potassium 3.3 Chloride 105 Carbon Dioxide 24 BUN 16 Creatinine 0.68 Calcium 9.0 Microbiology Microbiology Results: Microbiology 07/22/23 20:25 Blood - Venous Blood Culture - Preliminary Staphylococcus aureus 07/22/23 20:25 Blood - Venous Blood Culture - Preliminary Staphylococcus aureus Assessment and Plan (1) IV drug user: Status: Acute (2) Sepsis: Qualifiers: Sepsis acute organ dysfunction status: without acute organ dysfunction Sepsis type: sepsis due to unspecified organism Qualified Code(s): A41.9 - Sepsis, unspecified organism Status: Acute Staph aureus,negative echo Possible idiopathic or skin source. Stop Zosyn Continue Vancomycin for now. Check HIV and Hepatitis C. Likely 4 weeks IV antibiotics.
[2023-07-24 15:58] VITALS: BP 140/74; PULSE 53; RESP 18; TEMP 37.2; O2SAT 98
[2023-07-24 19:55] VITALS: BP 145/65; PULSE 61; RESP 18; TEMP 37.6; O2SAT 96
[2023-07-24 23:50] VITALS: BP 135/77; PULSE 57; RESP 18; TEMP 36.2; O2SAT 96
[2023-07-25 03:23] VITALS: BP 140/84; PULSE 57; RESP 18; TEMP 36.3; O2SAT 96
[2023-07-25 07:44] VITALS: BP 143/95; PULSE 58; RESP 14; TEMP 37.3; O2SAT 98
[2023-07-25] MEDS: methADONE HCl 20 MG/2 ML ORAL.CONC 60 MG PO (09:05)
[2023-07-25] MEDS: vancomycin HCL 1,500 MG in 0.9 % Sodium Chloride 500 ML 333.33 MG IV (09:06)
[2023-07-25] MEDS: 0.9 % Sodium Chloride Flush 3 ML SYRINGE IVFLUSH ×3 (09:06→21:44)
--- NOTE | 2023-07-25 09:28 | PC.NURSE ---
Pt refusing lovenox MD Morales aware.
--- NOTE | 2023-07-25 10:50 | HO.PM.IMPN ---
Subjective Subjective Date of Service: 07/25/23 Interval History: Seen and evaluated Feels tired with no energy reporting muscle and joints pain blood cultures still positive Review of Systems Review of Systems: Yes all other systems are reviewed and are negative Physical Exam Vital Signs: Vital Signs: Last Vital Signs Temp 99.1 F 07/25/23 07:44 Pulse 58 07/25/23 07:44 Resp 14 07/25/23 07:44 BP 143/95 H 07/25/23 07:44 Pulse Ox 98 07/25/23 07:44 O2 Del Method Room Air 07/25/23 07:44 BMI result Body Mass Index 20.5 Const: Other: Constitutional : Awake, tired and weak, not in distress Neck : Normal inspection, Supple Cardiovascular : RRR, no JVP, no lower extremity edema Respiratory : good bilateral air entry, no crackles Gastrointestinal: soft, lax, Normal bowel sounds, Non tender Skin : Warm, Dry, multiple skin scabs Neurological : Alert & oriented x3, No focal deficit Objective Data Active Medications Acetaminophen (Acetaminophen 325 Mg Tablet) 650 mg PO Q6H PRN PRN Reason: Pain, Mild (Pain Scale 1-3) Docusate Sodium (Docusate Sodium 100 Mg Capsule) 100 mg PO DAILY PRN PRN Reason: Constipation Enoxaparin Sodium (Enoxaparin Sodium 40 Mg/0.4 Ml Syringe) 40 mg SUBCUT Q24H [facility] Last Admin: 07/25/23 09:16 Dose: Not Given Documented By: VERONICA Non-Admin Reason: Patient Refused Vancomycin HCl 1,500 mg/ (Sodium Chloride) 500 mls @ 333.333 mls/hr IV Q12H [facility] Last Admin: 07/25/23 09:06 Dose: 333.33 mls/hr Documented By: VERONICA Methadone HCl (Methadone Hcl 20 Mg/2 Ml Oral.Conc) 60 mg PO DAILY [facility] Last Admin: 07/25/23 09:05 Dose: 60 mg Documented By: VERONICA Ondansetron HCl (Ondansetron Hcl 4 Mg/2 Ml Vial) 4 mg IVPUSH Q8H PRN PRN Reason: Nausea and Vomiting Last Admin: 07/23/23 07:58 Dose: 4 mg Documented By: STUART Pharmacy Consult (Consult Rx Vancomycin Dosing) 1 each MISCELLANE DAILY PRN PRN Reason: Consult order Sodium Chloride (0.9 % Sodium Chloride Flush 3 Ml Syringe) 3 ml IVFLUSH QSHIFT [facility] Last Admin: 07/25/23 09:06 Dose: 3 ml Documented By: VERONICA Labs 07/24/23 08:15 07/24/23 06:07 Microbiology Microbiology Results: Microbiology 07/24/23 06:07 Blood Culture - Preliminary Blood - Venous Staphylococcus aureus 07/24/23 06:07 Blood Culture - Preliminary Blood - Venous Staphylococcus aureus 07/22/23 20:25 Blood Culture - Preliminary Blood - Venous Methicillin Res Staph Aureus 07/22/23 20:25 Blood Culture - Final Blood - Venous Methicillin Res Staph Aureus Assessment and Plan (1) Opioid use disorder: Status: Acute (2) Sepsis: Status: Acute (3) Bacteremia due to Staphylococcus aureus: Status: Acute Plan 38-year-old female with past medical history of IVDA presented with nausea vomiting, fevers # Sepsis due to Gram-positive bacteremia in IVDU Continue vancomycin follow-up repeat cultures Echo with no obvious vegetations negative hiv and has +ve Hepatitis C that will need OP treatment ID input appreciated Vancomycin trough Opiate dependence with withdrawal Addiction team eval Adjust Methadone dose as tolerated DVT prophylaxis with Lovenox Full code Reason continue hospitalization: Bacteremia Quality Stroke Does the patient have a stroke diagnosis?: No VTE Prior VTE?: No VTE Risk Level:: Medical - moderate - high VTE Device Contraindication: Treatment Not Indicated VTE Drug Contraindication: N/A - Med Ordered
[2023-07-25 10:58] LABS: Hematocrit 40.7 % (37.0-47.0); Hemoglobin 13.6 g/dl (12.0-16.0); Mean Corpuscular HGB Conc 33.4 g/dl (31.0-35.0); Mean Corpuscular Hemoglobin 29.3 pg (27.0-33.0); Mean Corpuscular Volume 87.7 fL (80.0-98.0); Mean Platelet Volume 9.1 fL (9.4-12.3); Platelet Count 426 X10*3/uL (160-400); Red Blood Count 4.64 X10*6/uL (4.20-5.50); Red Cell Distribution Width 13.6 % (11.0-16.0); White Blood Count 16.4 X10*3/uL (4.8-10.8)
[2023-07-25 11:09] LABS: Vancomycin Random 59.7 mcg/mL (15-20)
[2023-07-25 11:20] LABS: Anion Gap 10 (12-20); Blood Urea Nitrogen 13 mg/dL (9-16); Calcium 8.9 mg/dL (8.4-10.2); Carbon Dioxide 27 mmol/L (22-29); Chloride 103 mmol/L (96-108); Creatinine Clr Calc Pharmacy 110.8; Estimated Glomerular Filt Rate > 60; Glucose Fasting 129 mg/dL (60-99); Potassium 3.3 mmol/L (3.3-5.1); Sodium 137 mmol/L (135-145)
[2023-07-25 11:57] LABS: HBS Num1 261.91 mIU/mL (0-7.99); HBc Num1 0.13 S/CO (0.00-0.79); HBsAGNum1 0.28 S/CO (0.00-0.99); HIV AB/AG Nonreactive (Nonreactive); HIV Num 1 0.04 S/CO (0.00-0.99); Hepatitis B Core Antibody Nonreactive (Nonreactive); Hepatitis B Surface Antigen Negative (Negative); ~HepC Num1 11.54 S/CO (0.00-0.79); ~Hepatitis B Surface Antibody REACTIVE (Nonreactive); ~Hepatitis C Antibody Reactive (Nonreactive)
[2023-07-25 12:00] VITALS: BP 137/78; PULSE 57; RESP 16; TEMP 37.2; O2SAT 96
--- NOTE | 2023-07-25 13:28 | MHC.CM.PN ---
pt awaitg [facility]
--- NOTE | 2023-07-25 14:03 | HE.PHANOTE ---
RE: YOANDY Patient's sCr is 0.6 on 07/05/23. Random lab was scheduled for 0700 but actually drawn @1030 (result: 59.7), which is right after patient's dose of 1500mg @0900. Another random lab was scheduled @1900.
[2023-07-25 15:46] VITALS: BP 127/79; PULSE 75; RESP 18; TEMP 37.6; O2SAT 98
[2023-07-25] MEDS: Acetaminophen 325 MG TABLET 650 MG PO (16:26)
--- NOTE | 2023-07-25 16:56 | PC.NURSE ---
MD Morales made aware oil heat technician reports pt occasionally appears to convert into junctional rhythm, pt reports no S&S. In addition, made aware pt having low grade temps throughout the day, last temp 99.6 PRN Tylenol given as ordered, pt asymptomatic at this time.
[2023-07-25 18:06] VITALS: TEMP 37.3
[2023-07-25 19:41] LABS: Vancomycin Random 9.5 mcg/mL (15-20)
--- NOTE | 2023-07-25 19:52 | HE.PHANOTE ---
RE VANCO DOSING SCR 0.6 AND TROUGH TODAY 9.5. INCREASING DOSE FROM 1500 TO 1750 Q12 AND WILL CHECK TROUGH AGAIN 07/26 @1900
[2023-07-25 20:00] VITALS: BP 129/78; PULSE 65; RESP 18; TEMP 36.3; O2SAT 98
--- NOTE | 2023-07-25 20:35 | P.PNADD_ITS ---
Subjective Subjective Date of Service: 07/25/23 Reason For Visit: IVDU, bacterimia Interim History: Patient seen in follow up Methadone dose increased to 60mg this morning Patient awake, sitting up in bed, eyes closed entire interview. Appearing very uncomfortable. Reporting withdrawal sx improved, however reporting neck pain, back pain and leg pain. Review of Systems Acute medical concerns: Yes Review of Systems Constitutional: Reports as per HPI Diagnostics Vital Signs (24Hr): Vital Signs - 24 hr 07/24/23 23:50 07/25/23 03:23 07/25/23 07:44 Temperature 97.2 F 97.4 F 99.1 F Pulse Rate 57 57 58 Respiratory Rate 18 18 14 Blood Pressure 135/77 140/84 H 143/95 H Pulse Oximetry 96 96 98 Oxygen Delivery Method Room Air Room Air Room Air 07/25/23 12:00 07/25/23 15:46 07/25/23 18:06 Temperature 99.0 F 99.6 F 99.1 F Pulse Rate 57 75 Respiratory Rate 16 18 Blood Pressure 137/78 127/79 Pulse Oximetry 96 98 Oxygen Delivery Method Room Air Room Air 07/25/23 20:00 Temperature 97.3 F Pulse Rate 65 Respiratory Rate 18 Blood Pressure 129/78 Pulse Oximetry 98 Oxygen Delivery Method Room Air BMI result Body Mass Index 20.5 Labs 07/25/23 10:33 07/25/23 10:33 Labs: Laboratory Results - last 48 hr 07/24/23 07/24/23 07/24/23 06:07 08:15 Unknown WBC 19.7 H RBC 4.25 Hgb 12.7 Hct 36.6 L MCV 86.1 MCH 29.9 MCHC 34.7 RDW 13.8 Plt Count 430 H MPV 9.3 L Absolute Nucleated RBC 0.000 Nucleated RBC % (auto) 0.0 Sodium 137 Potassium 3.3 Chloride 105 Carbon Dioxide 24 Anion Gap 11 L BUN 16 Creatinine 0.68 Estim Creat Clear Calc 97.8 Estimated GFR > 60 Fasting Glucose 124 H Calcium 9.0 Vancomycin Trough 5.8 L Random Vancomycin C. difficile Tox B Gene NEGATIVE Hep Bs Antigen Hep Bs Antibody Hep B Core Total Ab Hepatitis C Ab (EIA) HIV 1&2 Ab/P24 Ag 4thGn 07/25/23 07/25/23 07/25/23 10:33 10:34 19:09 WBC 16.4 H RBC 4.64 Hgb 13.6 Hct 40.7 MCV 87.7 MCH 29.3 MCHC 33.4 RDW 13.6 Plt Count 426 H MPV 9.1 L Absolute Nucleated RBC 0.000 Nucleated RBC % (auto) 0.0 Sodium 137 Potassium 3.3 Chloride 103 Carbon Dioxide 27 Anion Gap 10 L BUN 13 Creatinine 0.60 Estim Creat Clear Calc 110.8 Estimated GFR > 60 Fasting Glucose 129 H Calcium 8.9 Vancomycin Trough Random Vancomycin 59.7 H* 9.5 L C. difficile Tox B Gene Hep Bs Antigen Negative Hep Bs Antibody REACTIVE Hep B Core Total Ab Nonreactive Hepatitis C Ab (EIA) Reactive H HIV 1&2 Ab/P24 Ag 4thGn Nonreactive Imaging Radiology Impressions: ITS Impressions Chest X-Ray 07/22/23 19:17 IMPRESSION: No acute intrathoracic disease. Some nodular densities are seen as described above. These may or may not be in the lungs. A CT scan of the chest could be performed for further evaluation. Abdomen/Pelvis CT 07/23/23 00:05 IMPRESSION: 1. A cause for the patient's diarrhea and abdominal pain has not been found. 2. Incidental note made of hepatosplenomegaly, colonic diverticulosis without diverticulitis, chronic pelvic fractures and degenerative changes in the spine with scoliosis. Fleischner guidelines were followed. Medications Medications Current Medications Acetaminophen (Acetaminophen 325 Mg Tablet) 650 mg PO Q6H PRN PRN Reason: Pain, Mild (Pain Scale 1-3) Last Admin: 07/25/23 16:26 Dose: 650 mg Docusate Sodium (Docusate Sodium 100 Mg Capsule) 100 mg PO DAILY PRN PRN Reason: Constipation Enoxaparin Sodium (Enoxaparin Sodium 40 Mg/0.4 Ml Syringe) 40 mg SUBCUT Q24H [facility] Last Admin: 07/25/23 09:16 Dose: Not Given Vancomycin HCl 1,000 mg/Vancomycin HCl 750 mg/ Sodium Chloride 535 mls @ 267.5 mls/hr IV Q12H [facility] Methadone HCl (Methadone Hcl 20 Mg/2 Ml Oral.Conc) 60 mg PO DAILY [facility] Last Admin: 07/25/23 09:05 Dose: 60 mg Ondansetron HCl (Ondansetron Hcl 4 Mg/2 Ml Vial) 4 mg IVPUSH Q8H PRN PRN Reason: Nausea and Vomiting Last Admin: 07/23/23 07:58 Dose: 4 mg Pharmacy Consult (Consult Rx Vancomycin Dosing) 1 each MISCELLANE DAILY PRN PRN Reason: Consult order Sodium Chloride (0.9 % Sodium Chloride Flush 3 Ml Syringe) 3 ml IVFLUSH QSHIFT [facility] Last Admin: 07/25/23 16:23 Dose: 3 ml Allergies Allergies Allergy/AdvReac Type Severity Reaction Status Date / Time No Known Allergies Allergy Verified 07/22/23 22:50 [No Known Allergies*] Assessment & Plan Assessment & Plan (1) Opioid use disorder: Status: Acute Code(s): F11.90 - Opioid use, unspecified, uncomplicated Assessment and Plan: * continue methadone at current dose * will continue to follow Total time managing care of this patient today __20__ minutes.
[2023-07-25] MEDS: vancomycin HCL 1,000 MG, vancomycin HCL 750 MG in 0.9 % Sodium Chloride 500 ML 267.5 MG IV (21:43)
[2023-07-26] VITALS (7 sets, daily range): BP systolic 101–138; BP diastolic 67–90; PULSE 66–97; RESP 16–18; TEMP 36.3–37.2; O2SAT 97–98
--- NOTE | 2023-07-26 | ECG_ITS ---
Test Reason : tachy Blood Pressure : / mmHG Vent. Rate : 086 BPM Atrial Rate : 086 BPM P-R Int : 122 ms QRS Dur : 092 ms QT Int : 374 ms P-R-T Axes : 079 034 055 degrees QTc Int : 447 ms Normal sinus rhythm Right atrial enlargement Minimal voltage criteria for LVH, may be normal variant ( [place]agan product ) Nonspecific ST and T wave abnormality Abnormal ECG When compared with ECG of 22-JUL-2023 19:31, No significant change was found Referred By: Dioni Estrada Electronically Signed By:AB SALAZAR MD
[2023-07-26 06:43] LABS: Creatinine Clr Calc Pharmacy 110.8; Estimated Glomerular Filt Rate > 60
[2023-07-26] MEDS: Enoxaparin Sodium 40 MG/0.4 ML SYRINGE SUBCUT (08:05)
[2023-07-26] MEDS: methADONE HCl 20 MG/2 ML ORAL.CONC 60 MG PO (08:06)
[2023-07-26] MEDS: Acetaminophen 325 MG TABLET 650 MG PO (08:06)
[2023-07-26] MEDS: 0.9 % Sodium Chloride Flush 3 ML SYRINGE IVFLUSH ×3 (08:06→20:37)
[2023-07-26] MEDS: vancomycin HCL 1,000 MG, vancomycin HCL 750 MG in 0.9 % Sodium Chloride 500 ML 267.5 MG IV (09:02)
--- NOTE | 2023-07-26 09:52 | HO.PM.IMPN ---
Subjective Subjective Date of Service: 07/26/23 Interval History: Seen and evaluated reporting feeling tired with no energy reporting joints pain blood cultures from 07/25 positive Review of Systems Review of Systems: Yes all other systems are reviewed and are negative Physical Exam Vital Signs: Vital Signs: Last Vital Signs Temp 98.6 F 07/26/23 08:00 Pulse 97 07/26/23 08:00 Resp 18 07/26/23 08:00 BP 130/90 H 07/26/23 08:00 Pulse Ox 97 07/26/23 08:00 O2 Del Method Room Air 07/26/23 08:00 BMI result Body Mass Index 20.5 Const: Other: Constitutional : Awake, tired and weak, not in distress Neck : Normal inspection, Supple Cardiovascular : RRR, no JVP, no lower extremity edema Respiratory : good bilateral air entry, no crackles Gastrointestinal: soft, lax, Normal bowel sounds, Non tender Skin : Warm, Dry, multiple skin scabs Neurological : Alert & oriented x3, No focal deficit Objective Data Active Medications Acetaminophen (Acetaminophen 325 Mg Tablet) 650 mg PO Q6H PRN PRN Reason: Pain, Mild (Pain Scale 1-3) Last Admin: 07/26/23 08:06 Dose: 650 mg Documented By: GIOVANY Docusate Sodium (Docusate Sodium 100 Mg Capsule) 100 mg PO DAILY PRN PRN Reason: Constipation Enoxaparin Sodium (Enoxaparin Sodium 40 Mg/0.4 Ml Syringe) 40 mg SUBCUT Q24H [facility] Last Admin: 07/26/23 08:05 Dose: 40 mg Documented By: GIOVANY Vancomycin HCl 1,000 mg/Vancomycin HCl 750 mg/ Sodium Chloride 535 mls @ 267.5 mls/hr IV Q12H [facility] Last Admin: 07/26/23 09:02 Dose: 267.5 mls/hr Documented By: GIOVANY Methadone HCl (Methadone Hcl 20 Mg/2 Ml Oral.Conc) 60 mg PO DAILY [facility] Last Admin: 07/26/23 08:06 Dose: 60 mg Documented By: GIOVANY Ondansetron HCl (Ondansetron Hcl 4 Mg/2 Ml Vial) 4 mg IVPUSH Q8H PRN PRN Reason: Nausea and Vomiting Last Admin: 07/23/23 07:58 Dose: 4 mg Documented By: STUART Pharmacy Consult (Consult Rx Vancomycin Dosing) 1 each MISCELLANE DAILY PRN PRN Reason: Consult order Sodium Chloride (0.9 % Sodium Chloride Flush 3 Ml Syringe) [facility] Last Admin: 07/26/23 08:06 Dose: 3 ml Documented By: GIOVANY Labs 07/25/23 10:33 07/26/23 05:57 Labs: Laboratory Results - last 24 hr 07/25/23 07/25/23 07/25/23 10:33 10:34 19:09 MCV 87.7 MCH 29.3 MCHC 33.4 RDW 13.6 Plt Count 426 H MPV 9.1 L Absolute Nucleated RBC 0.000 Nucleated RBC % (auto) 0.0 Hold Purple Top Anion Gap 10 L Estim Creat Clear Calc 110.8 Estimated GFR > 60 Fasting Glucose 129 H Calcium 8.9 Random Vancomycin 59.7 H* 9.5 L Hep Bs Antigen Negative Hep Bs Antibody REACTIVE Hep B Core Total Ab Nonreactive Hepatitis C Ab (EIA) Reactive H HIV 1&2 Ab/P24 Ag 4thGn Nonreactive 07/26/23 05:57 MCV MCH MCHC RDW Plt Count MPV Absolute Nucleated RBC Nucleated RBC % (auto) Hold Purple Top SEE NOTE Anion Gap Estim Creat Clear Calc 110.8 Estimated GFR > 60 Fasting Glucose Calcium Random Vancomycin Hep Bs Antigen Hep Bs Antibody Hep B Core Total Ab Hepatitis C Ab (EIA) HIV 1&2 Ab/P24 Ag 4thGn Microbiology Microbiology Results: Microbiology 07/25/23 10:20 Blood Culture - Preliminary Blood - Venous Prelim: GPC Gram Stain only 07/25/23 10:25 Blood Culture - Preliminary Blood - Venous Prelim: GPC Gram Stain only 07/24/23 06:07 Blood Culture - Final Blood - Venous Methicillin Res Staph Aureus 07/24/23 06:07 Blood Culture - Preliminary Blood - Venous Staphylococcus aureus 07/22/23 20:25 Blood Culture - Final Blood - Venous Methicillin Res Staph Aureus 07/22/23 20:25 Blood Culture - Final Blood - Venous Methicillin Res Staph Aureus Assessment and Plan (1) Bacteremia due to Staphylococcus aureus: Status: Acute (2) Sepsis: Status: Acute (3) IV drug user: Status: Acute (4) Polysubstance abuse: Status: Acute (5) Opioid withdrawal: Status: Acute Plan 38-year-old female with past medical history of IVDA presented with nausea vomiting, fevers # Sepsis due to Gram-positive bacteremia in IVDU Continue vancomycin follow-up repeat cultures Echo with no obvious vegetations negative hiv and has +ve Hepatitis C that will need OP treatment ID input appreciated Vancomycin trough still low at 9, dose adjusted # Opiate dependence with withdrawal improved Addiction team eval Adjust Methadone dose as tolerated # Joints pain Likely related to infection Ibuprofen PRN increase activity as tolerated DVT prophylaxis with Lovenox Full code Reason continue hospitalization: Bacteremia on IV antibiotics pending -ve cultures Quality Stroke Does the patient have a stroke diagnosis?: No VTE Prior VTE?: No VTE Risk Level:: Medical - moderate - high VTE Device Contraindication: Treatment Not Indicated VTE Drug Contraindication: N/A - Med Ordered
--- NOTE | 2023-07-26 14:35 | MHC.RECOVRN ---
Met with pt in 347 to follow up and provide support. Pt laying in bed, eyes closed, wakes to voice and briefly engages in conversation. Pt does keep eyes open today during discussion. Pt reports withdrawal symptoms including chills and diarrhea. Pt reports historically being stable between 85 mg-120 mg methadone. Would like to continue titration. Pt reports pain in back, shoulders, and knees that is not being relieved by Tylenol or ibuprofen. Denies other questions or concerns for t/w. Discussed with Caprice Ervin APRN.
[2023-07-26] MEDS: Ibuprofen 400 MG TABLET PO ×2 (15:44→20:36)
[2023-07-26 19:28] LABS: Vancomycin Random 9.8 mcg/mL (15-20)
--- NOTE | 2023-07-26 19:42 | HE.PHANOTE ---
RE VANCO DOSING PT CLEARING VANCO VERY QUICKLY. AFTER DOSE INCREASE TROUGH IS ONLY 9.8 (INCREASED FROM 9.5 24 HOURS AGO). WILL INCREASE DOSE AGAIN TO 1250 Q8H. INSIGHT IS SHOWING AUC 539 AND TROUGH 12.2. RECHECK TOMORROW @ 1900 TO SEE IF RENAL FUNCTION AND LEVEL IS ACCEPTABLE. MAY NEED INCREASE AGAIN BUT WITH 1500 Q8H, AUC COULD GO OVER 600 AND WE STILL MAY NOT SEE TROUGH OVER 15.
--- NOTE | 2023-07-26 19:55 | PC.NURSE ---
MT sent me a tiger text for the pt HR 130s. notified dr. Wheatley received ECG. ECG completed and sent to trip. will continue to monitor
[2023-07-26] MEDS: vancomycin HCL 1,250 MG in 0.9 % Sodium Chloride 250 ML 166.67 MG IV (20:36)
[2023-07-27] VITALS (9 sets, daily range): BP systolic 100–135; BP diastolic 55–83; PULSE 60–101; RESP 16–18; TEMP 36.5–37.2; O2SAT 97–99
[2023-07-27] MEDS: Ibuprofen 400 MG TABLET PO ×4 (03:22→19:39)
[2023-07-27] MEDS: vancomycin HCL 1,250 MG in 0.9 % Sodium Chloride 250 ML 166.67 MG IV (05:20)
[2023-07-27 05:59] LABS: Hematocrit 42.1 % (37.0-47.0); Hemoglobin 13.8 g/dl (12.0-16.0); Mean Corpuscular HGB Conc 32.8 g/dl (31.0-35.0); Mean Corpuscular Hemoglobin 28.8 pg (27.0-33.0); Mean Corpuscular Volume 87.7 fL (80.0-98.0); Mean Platelet Volume 11.4 fL (9.4-12.3); Platelet Count 242 X10*3/uL (160-400); Red Cell Distribution Width 13.4 % (11.0-16.0); White Blood Count 11.1 X10*3/uL (4.8-10.8)
[2023-07-27 06:15] LABS: Anion Gap 13 (12-20); Blood Urea Nitrogen 15 mg/dL (9-16); Calcium 8.9 mg/dL (8.4-10.2); Carbon Dioxide 23 mmol/L (22-29); Chloride 105 mmol/L (96-108); Creatinine Clr Calc Pharmacy 127.9; Estimated Glomerular Filt Rate > 60; Glucose Random 89 mg/dL (60-115); Potassium 3.6 mmol/L (3.3-5.1); Sodium 137 mmol/L (135-145)
[2023-07-27] MEDS: methADONE HCl 20 MG/2 ML ORAL.CONC 70 MG PO (08:17)
[2023-07-27] MEDS: 0.9 % Sodium Chloride Flush 3 ML SYRINGE IVFLUSH ×3 (08:17→19:39)
[2023-07-27] MEDS: ceFAZolin Sodium/Dextrose,Iso 2 GM/50 ML PIGGYBACK IV ×2 (11:09→19:38)
[2023-07-27] MEDS: DAPTOmycin 500 MG in 0.9 % Sodium Chloride 50 ML 100 MG IV (12:27)
--- NOTE | 2023-07-27 15:46 | HO.PM.IMPN ---
Subjective Subjective Date of Service: 07/27/23 Interval History: Seen and evaluated reporting feeling tired with no energy reporting joints pain blood cultures from 07/25 positive Review of Systems Review of Systems: Yes all other systems are reviewed and are negative Physical Exam Vital Signs: Vital Signs: Last Vital Signs Temp 97.7 F 07/27/23 11:44 Pulse 89 07/27/23 11:44 Resp 16 07/27/23 11:44 BP 123/74 07/27/23 11:44 Pulse Ox 98 07/27/23 11:44 O2 Del Method Room Air 07/27/23 11:44 BMI result Body Mass Index 20.5 Const: Other: Constitutional : Awake, tired and weak, not in distress Neck : Normal inspection, Supple Cardiovascular : RRR, no JVP, no lower extremity edema Respiratory : good bilateral air entry, no crackles Gastrointestinal: soft, lax, Normal bowel sounds, Non tender Skin : Warm, Dry, multiple skin scabs Neurological : Alert & oriented x3, No focal deficit Objective Data Active Medications Acetaminophen (Acetaminophen 325 Mg Tablet) 650 mg PO Q6H PRN PRN Reason: Pain, Mild (Pain Scale 1-3) Last Admin: 07/26/23 08:06 Dose: 650 mg Documented By: GIOVANY Docusate Sodium (Docusate Sodium 100 Mg Capsule) 100 mg PO DAILY PRN PRN Reason: Constipation Enoxaparin Sodium (Enoxaparin Sodium 40 Mg/0.4 Ml Syringe) 40 mg SUBCUT Q24H [facility] Last Admin: 07/27/23 08:21 Dose: Not Given Documented By: GIOVANY Non-Admin Reason: Patient Refused Daptomycin 500 mg/ Sodium (Chloride) 60 mls @ 100 mls/hr IV Q24H [facility] Last Infusion: 07/27/23 13:09 Dose: Infused Documented By: GIOVANY Cefazolin Sodium/Dextrose (Ancef) 2 gm in 50 mls @ 100 mls/hr IV Q8H [facility] Stop: 08/01/23 10:59 Last Infusion: 07/27/23 11:40 Dose: Infused Documented By: GIOVANY Ibuprofen (Ibuprofen 400 Mg Tablet) 400 mg PO Q6H [facility] Last Admin: 07/27/23 15:42 Dose: 400 mg Documented By: GIOVANY Methadone HCl (Methadone Hcl 20 Mg/2 Ml Oral.Conc) 70 mg PO DAILY [facility] Last Admin: 07/27/23 08:17 Dose: 70 mg Documented By: GIOVANY Ondansetron HCl (Ondansetron Hcl 4 Mg/2 Ml Vial) 4 mg IVPUSH Q8H PRN PRN Reason: Nausea and Vomiting Last Admin: 07/23/23 07:58 Dose: 4 mg Documented By: STUART Sodium Chloride (0.9 % Sodium Chloride Flush 3 Ml Syringe) 3 ml IVFLUSH QSHIFT [facility] Last Admin: 07/27/23 15:42 Dose: 3 ml Documented By: GIOVANY Labs 07/27/23 05:30 07/27/23 05:30 Labs: Laboratory Results - last 24 hr 07/26/23 07/27/23 19:03 05:30 MCV 87.7 MCH 28.8 MCHC 32.8 RDW 13.4 Plt Count 242 D MPV 11.4 Absolute Nucleated RBC 0.000 Nucleated RBC % (auto) 0.0 Anion Gap 13 Estim Creat Clear Calc 127.9 Estimated GFR > 60 Random Glucose 89 Calcium 8.9 Random Vancomycin 9.8 L Microbiology Microbiology Results: Microbiology 07/25/23 10:20 Blood Culture - Final Blood - Venous Methicillin Res Staph Aureus 07/25/23 10:25 Blood Culture - Final Blood - Venous Methicillin Res Staph Aureus 07/26/23 10:33 Blood Culture - Preliminary Blood - Venous Prelim: GPC Gram Stain only 07/26/23 10:33 Blood Culture - Preliminary Blood - Venous Prelim: GPC Gram Stain only 07/24/23 06:07 Blood Culture - Final Blood - Venous Methicillin Res Staph Aureus Assessment and Plan (1) Bacteremia due to Staphylococcus aureus: Status: Acute (2) Opioid use disorder: Status: Acute Plan 38-year-old female with past medical history of IVDA presented with nausea vomiting, fevers # Sepsis due to Gram-positive bacteremia in IVDU Positive repeat cultures, to re do cx 07/27 Echo with no obvious vegetations negative hiv and has +ve Hepatitis C that will need OP treatment DC vancomycin Start Daptomycin and Cefazolin ID input appreciated Consider LAURA Sunday # Opiate dependence with withdrawal improved Addiction team eval Adjust Methadone dose as tolerated # Joints pain Likely related to infection Ibuprofen PRN increase activity as tolerated DVT prophylaxis with Lovenox Full code Reason continue hospitalization: Bacteremia on IV antibiotics pending -ve cultures Quality Stroke Does the patient have a stroke diagnosis?: No VTE Prior VTE?: No VTE Risk Level:: Medical - moderate - high VTE Device Contraindication: Treatment Not Indicated VTE Drug Contraindication: N/A - Med Ordered
--- NOTE | 2023-07-27 16:33 | P.PNADD_ITS ---
Subjective Subjective Date of Service: 07/27/23 Reason For Visit: IVDU, bacterimia Interim History: Patient seen in follow up. Methadone dose increased to 70mg this morning. Patient seen midmorning, sitting up in bed, awake, alert, engaged in interview. Still reporting feeling poor overall, however appearing improved since admission. Withdrawal symptoms much improved. Somewhat tearful during visit, reports feeling alone--sharing that her mother 2 years ago of an overdose. Review of Systems Acute medical concerns: Yes Medical Review of Systems: unchanged Mental Status Exam Mental Status Exam Level of Consciousness: Awake, Appropriate and Alert Mood Description: Blunted Affect Description: Blunted Diagnostics Vital Signs (24Hr): Vital Signs - 24 hr 07/26/23 19:26 07/26/23 23:29 07/27/23 03:46 Temperature 98.6 F 97.4 F 98.0 F Pulse Rate 97 67 72 Respiratory Rate 18 18 18 Blood Pressure 120/81 101/67 123/81 Pulse Oximetry 97 98 97 Oxygen Delivery Method Room Air Room Air Room Air 07/27/23 07:16 07/27/23 11:44 07/27/23 15:59 Temperature 98.5 F 97.7 F 98.6 F Pulse Rate 60 89 101 H Respiratory Rate 18 16 18 Blood Pressure 135/83 123/74 115/71 Pulse Oximetry 99 98 97 Oxygen Delivery Method Room Air Room Air Room Air BMI result Body Mass Index 20.5 Labs 07/27/23 05:30 07/27/23 05:30 Labs: Laboratory Results - last 48 hr 07/25/23 07/26/23 07/26/23 19:09 05:57 19:03 WBC RBC Hgb Hct MCV MCH MCHC RDW Plt Count MPV Absolute Nucleated RBC Nucleated RBC % (auto) Hold Purple Top SEE NOTE Sodium Potassium Chloride Carbon Dioxide Anion Gap BUN Creatinine 0.60 Estim Creat Clear Calc 110.8 Estimated GFR > 60 Random Glucose Calcium Random Vancomycin 9.5 L 9.8 L 07/27/23 05:30 WBC 11.1 H RBC 4.80 Hgb 13.8 Hct 42.1 MCV 87.7 MCH 28.8 MCHC 32.8 RDW 13.4 Plt Count 242 D MPV 11.4 Absolute Nucleated RBC 0.000 Nucleated RBC % (auto) 0.0 Hold Purple Top Sodium 137 Potassium 3.6 Chloride 105 Carbon Dioxide 23 Anion Gap 13 BUN 15 Creatinine 0.52 Estim Creat Clear Calc 127.9 Estimated GFR > 60 Random Glucose 89 Calcium 8.9 Random Vancomycin Imaging Radiology Impressions: ITS Impressions Chest X-Ray 07/22/23 19:17 IMPRESSION: No acute intrathoracic disease. Some nodular densities are seen as described above. These may or may not be in the lungs. A CT scan of the chest could be performed for further evaluation. Abdomen/Pelvis CT 07/23/23 00:05 IMPRESSION: 1. A cause for the patient's diarrhea and abdominal pain has not been found. 2. Incidental note made of hepatosplenomegaly, colonic diverticulosis without diverticulitis, chronic pelvic fractures and degenerative changes in the spine with scoliosis. Fleischner guidelines were followed. Medications Medications Current Medications Acetaminophen (Acetaminophen 325 Mg Tablet) 650 mg PO Q6H PRN PRN Reason: Pain, Mild (Pain Scale 1-3) Last Admin: 07/26/23 08:06 Dose: 650 mg Docusate Sodium (Docusate Sodium 100 Mg Capsule) 100 mg PO DAILY PRN PRN Reason: Constipation Enoxaparin Sodium (Enoxaparin Sodium 40 Mg/0.4 Ml Syringe) 40 mg SUBCUT Q24H [facility] Last Admin: 07/27/23 08:21 Dose: Not Given Daptomycin 500 mg/ Sodium (Chloride) 60 mls @ 100 mls/hr IV Q24H [facility] Last Infusion: 07/27/23 13:09 Dose: Infused Cefazolin Sodium/Dextrose (Ancef) 2 gm in 50 mls @ 100 mls/hr IV Q8H [facility] Stop: 08/01/23 10:59 Last Infusion: 07/27/23 11:40 Dose: Infused Ibuprofen (Ibuprofen 400 Mg Tablet) 400 mg PO Q6H [facility] Last Admin: 07/27/23 15:42 Dose: 400 mg Methadone HCl (Methadone Hcl 20 Mg/2 Ml Oral.Conc) 70 mg PO DAILY [facility] Last Admin: 07/27/23 08:17 Dose: 70 mg Ondansetron HCl (Ondansetron Hcl 4 Mg/2 Ml Vial) 4 mg IVPUSH Q8H PRN PRN Reason: Nausea and Vomiting Last Admin: 07/23/23 07:58 Dose: 4 mg Sodium Chloride (0.9 % Sodium Chloride Flush 3 Ml Syringe) 3 ml IVFLUSH QSHIFT [facility] Last Admin: 07/27/23 15:42 Dose: 3 ml Allergies Allergies Allergy/AdvReac Type Severity Reaction Status Date / Time No Known Allergies Allergy Verified 07/22/23 22:50 [No Known Allergies*] Assessment & Plan Assessment & Plan (1) Opioid use disorder: Status: Acute Code(s): F11.90 - Opioid use, unspecified, uncomplicated Assessment and Plan: * continue methadone at 70mg QD through the weekend * campaign consultant to check in over the weekend Total time managing care of this patient today ____ minutes.
[2023-07-27 19:45] LABS: Vancomycin Random 7.5 mcg/mL (15-20)
[2023-07-28] VITALS (7 sets, daily range): BP systolic 106–135; BP diastolic 59–77; PULSE 69–147; RESP 16–17; TEMP 35.9–37; O2SAT 95–100
[2023-07-28] MEDS: ceFAZolin Sodium/Dextrose,Iso 2 GM/50 ML PIGGYBACK IV ×3 (04:14→20:07)
[2023-07-28] MEDS: Ibuprofen 400 MG TABLET PO ×4 (04:14→20:07)
[2023-07-28] MEDS: methADONE HCl 20 MG/2 ML ORAL.CONC 70 MG PO (07:52)
[2023-07-28] MEDS: 0.9 % Sodium Chloride Flush 3 ML SYRINGE IVFLUSH ×2 (07:52→16:02)
[2023-07-28 08:32] LABS: Creatinine Clr Calc Pharmacy 107.3; Estimated Glomerular Filt Rate > 60
[2023-07-28] MEDS: Enoxaparin Sodium 40 MG/0.4 ML SYRINGE SUBCUT (10:15)
[2023-07-28] MEDS: DAPTOmycin 500 MG in 0.9 % Sodium Chloride 50 ML 100 MG IV (10:17)
--- NOTE | 2023-07-28 11:52 | MHC.RECOVRN ---
T/W visited pt to F/U on effectiveness of methadone dose and also for general check in. Pt is A&O x 4, pleasant and cooperative with care. She is very fatigued. She reports that she is still experiencing temp. changes, sneezing, runny nose and overall body aches in the evening. Provider Caprice Ervin consulted and increase in methadone by 5mg. ordered to start tonight. Pt shared with this gag writer how she would like to go to a recovery program upon D/C from hospital. We talked about this further re: how to accomplish this and the benefits of this decision. left ct resting comfortably in bed. Will continue to follow until D/C.
--- NOTE | 2023-07-28 12:27 | P.PNIM_ITS ---
Subjective Subjective Date of Service: 07/28/23 Interval History: Seen and evaluated Feels better today reporting joints pain improving blood cultures from 07/25 positive Review of Systems Review of Systems: Yes all other systems are reviewed and are negative Physical Exam 2 Vital Signs: Vital Signs: Last Vital Signs Temp 98.6 F 07/28/23 11:32 Pulse 89 07/28/23 11:32 Resp 16 07/28/23 11:32 BP 106/62 07/28/23 11:32 Pulse Ox 97 07/28/23 11:32 O2 Del Method Room Air 07/28/23 11:32 BMI result Body Mass Index 20.5 Const: Other: Constitutional : Awake, tired and weak, not in distress Neck : Normal inspection, Supple Cardiovascular : RRR, no JVP, no lower extremity edema Respiratory : good bilateral air entry, no crackles Gastrointestinal: soft, lax, Normal bowel sounds, Non tender Skin : Warm, Dry, multiple skin scabs Neurological : Alert & oriented x3, No focal deficit Objective Data Active Medications Acetaminophen (Acetaminophen 325 Mg Tablet) 650 mg PO Q6H PRN PRN Reason: Pain, Mild (Pain Scale 1-3) Last Admin: 07/26/23 08:06 Dose: 650 mg Documented By: GIOVANY Docusate Sodium (Docusate Sodium 100 Mg Capsule) 100 mg PO DAILY PRN PRN Reason: Constipation Enoxaparin Sodium (Enoxaparin Sodium 40 Mg/0.4 Ml Syringe) 40 mg SUBCUT Q24H [facility] Last Admin: 07/28/23 10:15 Dose: 40 mg Documented By: SO Daptomycin 500 mg/ Sodium (Chloride) 60 mls @ 100 mls/hr IV Q24H [facility] Last Infusion: 07/28/23 11:01 Dose: Infused Documented By: SO Cefazolin Sodium/Dextrose (Ancef) 2 gm in 50 mls @ 100 mls/hr IV Q8H [facility] Stop: 08/01/23 10:59 Last Infusion: 07/28/23 11:46 Dose: Infused Documented By: SO Ibuprofen (Ibuprofen 400 Mg Tablet) 400 mg PO Q6H [facility] Last Admin: 07/28/23 10:14 Dose: 400 mg Documented By: SO Methadone HCl (Methadone Hcl 20 Mg/2 Ml Oral.Conc) 70 mg PO DAILY [facility] Last Admin: 07/28/23 07:52 Dose: 70 mg Documented By: SO Ondansetron HCl (Ondansetron Hcl 4 Mg/2 Ml Vial) 4 mg IVPUSH Q8H PRN PRN Reason: Nausea and Vomiting Last Admin: 07/23/23 07:58 Dose: 4 mg Documented By: STUART Sodium Chloride (0.9 % Sodium Chloride Flush 3 Ml Syringe) 3 ml IVFLUSH QSHIFT [facility] Last Admin: 07/28/23 07:52 Dose: 3 ml Documented By: SO Labs 07/27/23 05:30 07/28/23 07:31 Labs: Laboratory Results - last 24 hr 07/27/23 07/28/23 19:07 07:31 Estim Creat Clear Calc 107.3 Estimated GFR > 60 Random Vancomycin 7.5 L Microbiology Microbiology Results: Microbiology 07/26/23 10:33 Blood Culture - Final Blood - Venous Methicillin Res Staph Aureus 07/26/23 10:33 Blood Culture - Final Blood - Venous Methicillin Res Staph Aureus 07/25/23 10:20 Blood Culture - Final Blood - Venous Methicillin Res Staph Aureus 07/25/23 10:25 Blood Culture - Final Blood - Venous Methicillin Res Staph Aureus Assessment and Plan (1) Bacteremia due to Staphylococcus aureus: Status: Acute (2) Opioid use disorder: Status: Acute (3) Polysubstance abuse: Status: Acute Plan 38-year-old female with past medical history of IVDA presented with nausea vomiting, fevers # Sepsis due to Gram-positive bacteremia in IVDU Positive repeat cultures, to re do cx 07/27 Echo with no obvious vegetations negative hiv and has +ve Hepatitis C that will need OP treatment Continue Daptomycin and Cefazolin ID input appreciated Consider LAURA Sunday # Opiate dependence with withdrawal improved Addiction team eval Adjust Methadone dose as tolerated # Joints pain Likely related to infection Ibuprofen PRN increase activity as tolerated DVT prophylaxis with Lovenox Full code Reason continue hospitalization: Bacteremia on IV antibiotics pending -ve cultures Quality Stroke Does the patient have a stroke diagnosis?: No VTE Prior VTE?: No VTE Risk Level:: Medical - moderate - high VTE Device Contraindication: Treatment Not Indicated VTE Drug Contraindication: N/A - Med Ordered
[2023-07-28] MEDS: Acetaminophen 325 MG TABLET 650 MG PO (20:08)
[2023-07-29] MEDS: 0.9 % Sodium Chloride Flush 3 ML SYRINGE IVFLUSH ×4 (00:15→20:43)
[2023-07-29] MEDS: Ibuprofen 400 MG TABLET PO ×2 (03:54→16:07)
[2023-07-29] MEDS: ceFAZolin Sodium/Dextrose,Iso 2 GM/50 ML PIGGYBACK IV ×3 (03:55→19:46)
[2023-07-29 04:00] VITALS: BP 91/55; PULSE 77; RESP 16; TEMP 36.5; O2SAT 98
[2023-07-29 06:17] LABS: Creatinine Clr Calc Pharmacy 99.3; Estimated Glomerular Filt Rate > 60
[2023-07-29 07:24] VITALS: BP 118/74; PULSE 79; RESP 16; TEMP 36.3; O2SAT 98
[2023-07-29] MEDS: methADONE HCl 20 MG/2 ML ORAL.CONC 70 MG PO (08:27)
[2023-07-29] MEDS: Enoxaparin Sodium 40 MG/0.4 ML SYRINGE SUBCUT (10:38)
--- NOTE | 2023-07-29 11:19 | P.PNIM_ITS ---
Subjective Subjective Date of Service: 07/29/23 Interval History: Seen and evaluated Feels better today reporting joints pain improving blood cultures from 07/25 positive Review of Systems Review of Systems: Yes all other systems are reviewed and are negative Physical Exam 2 Vital Signs: Vital Signs: Last Vital Signs Temp 97.3 F 07/29/23 07:24 Pulse 79 07/29/23 07:24 Resp 16 07/29/23 07:24 BP 118/74 07/29/23 07:24 Pulse Ox 98 07/29/23 07:24 O2 Del Method Room Air 07/29/23 07:24 BMI result Body Mass Index 20.5 Const: Other: Constitutional : Awake, tired and weak, not in distress Neck : Normal inspection, Supple Cardiovascular : RRR, no JVP, no lower extremity edema Respiratory : good bilateral air entry, no crackles Gastrointestinal: soft, lax, Normal bowel sounds, Non tender Skin : Warm, Dry, multiple skin scabs Neurological : Alert & oriented x3, No focal deficit Objective Data Active Medications Acetaminophen (Acetaminophen 325 Mg Tablet) 650 mg PO Q6H PRN PRN Reason: Pain, Mild (Pain Scale 1-3) Last Admin: 07/28/23 20:08 Dose: 650 mg Documented By: FUNMILAYO Docusate Sodium (Docusate Sodium 100 Mg Capsule) 100 mg PO DAILY PRN PRN Reason: Constipation Enoxaparin Sodium (Enoxaparin Sodium 40 Mg/0.4 Ml Syringe) 40 mg SUBCUT Q24H [facility] Last Admin: 07/29/23 10:38 Dose: 40 mg Documented By: SO Daptomycin 500 mg/ Sodium (Chloride) 60 mls @ 100 mls/hr IV Q24H [facility] Last Infusion: 07/28/23 11:01 Dose: Infused Documented By: SO Cefazolin Sodium/Dextrose (Ancef) 2 gm in 50 mls @ 100 mls/hr IV Q8H [facility] Stop: 08/01/23 10:59 Last Admin: 07/29/23 10:38 Dose: 100 mls/hr Documented By: SO Ibuprofen (Ibuprofen 400 Mg Tablet) 400 mg PO Q6H PRN PRN Reason: Pain, Moderate(Pain Scale 4-6) Methadone HCl (Methadone Hcl 20 Mg/2 Ml Oral.Conc) 70 mg PO DAILY [facility] Last Admin: 07/29/23 08:27 Dose: 70 mg Documented By: SO Methadone HCl (Methadone Hcl 20 Mg/2 Ml Oral.Conc) 5 mg PO BEDTIME [facility] Ondansetron HCl (Ondansetron Hcl 4 Mg/2 Ml Vial) 4 mg IVPUSH Q8H PRN PRN Reason: Nausea and Vomiting Last Admin: 07/23/23 07:58 Dose: 4 mg Documented By: STUART Sodium Chloride (0.9 % Sodium Chloride Flush 3 Ml Syringe) 3 ml IVFLUSH QSHIFT [facility] Last Admin: 07/29/23 08:29 Dose: 3 ml Documented By: SO Labs 07/27/23 05:30 07/29/23 05:48 Labs: Laboratory Results - last 24 hr 07/29/23 05:48 Estim Creat Clear Calc 99.3 Estimated GFR > 60 Microbiology Microbiology Results: Microbiology 07/26/23 10:33 Blood Culture - Final Blood - Venous Methicillin Res Staph Aureus 07/26/23 10:33 Blood Culture - Final Blood - Venous Methicillin Res Staph Aureus Assessment and Plan (1) Bacteremia due to Staphylococcus aureus: Status: Acute (2) Opioid use disorder: Status: Acute Plan 38-year-old female with past medical history of IVDA presented with nausea vomiting, fevers # Sepsis due to Gram-positive bacteremia in IVDU Positive repeat cultures, repeat cx 07/29 Echo with no obvious vegetations negative hiv and has +ve Hepatitis C that will need OP treatment Continue Daptomycin and Cefazolin ID input appreciated, cahnge Abx, LAURA Consider LAURA if repeated cultures positive # Opiate dependence Addiction team eval Adjust Methadone dose as tolerated # Joints pain Likely related to infection Ibuprofen PRN increase activity as tolerated DVT prophylaxis with Lovenox Full code Reason continue hospitalization: Bacteremia on IV antibiotics pending -ve cultures Quality Stroke Does the patient have a stroke diagnosis?: No VTE Prior VTE?: No VTE Risk Level:: Medical - moderate - high VTE Device Contraindication: Treatment Not Indicated VTE Drug Contraindication: N/A - Med Ordered
[2023-07-29 11:31] VITALS: BP 112/60; PULSE 91; RESP 16; TEMP 36.3; O2SAT 97
[2023-07-29] MEDS: DAPTOmycin 500 MG in 0.9 % Sodium Chloride 50 ML 100 MG IV (11:31)
--- NOTE | 2023-07-29 14:01 | MHC.RECOVRN ---
T/W visited pt to F/U on effectiveness of methadone dose and also for general check in. Pt was sleeping upon my arrival and very fatigued throughout our visit. Her methadone increase will start this PM so I was unable to assess effectiveness. Pt reports she has pain in her hip and she is very lonely. I offered some non pharmacological interventions for her hip pain (pillow support) and she declined stating that it is tolerable. Offered active listening and support and left ct resting comfortably in bed. Will continue to follow until D/C.
[2023-07-29 15:46] VITALS: BP 123/70; PULSE 103; RESP 16; TEMP 37.6; O2SAT 97
[2023-07-29 20:00] VITALS: BP 113/66; PULSE 95; RESP 16; TEMP 36.6; O2SAT 98
[2023-07-29] MEDS: methADONE HCl 20 MG/2 ML ORAL.CONC 5 MG PO (20:42)
[2023-07-30] VITALS (7 sets, daily range): BP systolic 105–127; BP diastolic 59–73; PULSE 86–102; RESP 16–18; TEMP 36.2–37.1; O2SAT 97–98
[2023-07-30] MEDS: ceFAZolin Sodium/Dextrose,Iso 2 GM/50 ML PIGGYBACK IV ×3 (03:23→18:27)
[2023-07-30] MEDS: Ibuprofen 400 MG TABLET PO ×2 (03:32→18:35)
[2023-07-30 06:40] LABS: Creatinine Clr Calc Pharmacy 99.3; Estimated Glomerular Filt Rate > 60
[2023-07-30] MEDS: methADONE HCl 20 MG/2 ML ORAL.CONC 70 MG PO (09:13)
[2023-07-30] MEDS: 0.9 % Sodium Chloride Flush 3 ML SYRINGE IVFLUSH ×3 (09:13→21:13)
[2023-07-30] MEDS: DAPTOmycin 500 MG in 0.9 % Sodium Chloride 50 ML 100 MG IV (12:56)
--- NOTE | 2023-07-30 13:02 | HO.PM.IMPN ---
Subjective Subjective Date of Service: 07/30/23 Interval History: Seen and evaluated Feels better today reporting joints pain improving blood cultures from 07/29 negative Review of Systems Review of Systems: Yes all other systems are reviewed and are negative Physical Exam Vital Signs: Vital Signs: Last Vital Signs Temp 98.0 F 07/30/23 11:26 Pulse 98 07/30/23 11:26 Resp 18 07/30/23 11:26 BP 110/67 07/30/23 11:26 Pulse Ox 98 07/30/23 11:26 O2 Del Method Room Air 07/30/23 11:26 BMI result Body Mass Index 20.5 Const: Other: Constitutional : Awake, tired and weak, not in distress Neck : Normal inspection, Supple Cardiovascular : RRR, no JVP, no lower extremity edema Respiratory : good bilateral air entry, no crackles Gastrointestinal: soft, lax, Normal bowel sounds, Non tender Skin : Warm, Dry, multiple skin scabs Neurological : Alert & oriented x3, No focal deficit Objective Data Active Medications Acetaminophen (Acetaminophen 325 Mg Tablet) 650 mg PO Q6H PRN PRN Reason: Pain, Mild (Pain Scale 1-3) Last Admin: 07/28/23 20:08 Dose: 650 mg Documented By: FUNMILAYO Docusate Sodium (Docusate Sodium 100 Mg Capsule) 100 mg PO DAILY PRN PRN Reason: Constipation Enoxaparin Sodium (Enoxaparin Sodium 40 Mg/0.4 Ml Syringe) 40 mg SUBCUT Q24H [facility] Last Admin: 07/30/23 09:14 Dose: Not Given Documented By: SO Non-Admin Reason: Patient Refused Daptomycin 500 mg/ Sodium (Chloride) 60 mls @ 100 mls/hr IV Q24H [facility] Last Infusion: 07/29/23 12:28 Dose: Infused Documented By: SO Cefazolin Sodium/Dextrose (Ancef) 2 gm in 50 mls @ 100 mls/hr IV Q8H [facility] Stop: 08/01/23 10:59 Last Infusion: 07/30/23 12:16 Dose: Infused Documented By: OS Ibuprofen (Ibuprofen 400 Mg Tablet) 400 mg PO Q6H PRN PRN Reason: Pain, Moderate(Pain Scale 4-6) Last Admin: 07/30/23 03:32 Dose: 400 mg Documented By: MANDY Methadone HCl (Methadone Hcl 20 Mg/2 Ml Oral.Conc) 70 mg PO DAILY [facility] Last Admin: 07/30/23 09:13 Dose: 70 mg Documented By: SO Methadone HCl (Methadone Hcl 20 Mg/2 Ml Oral.Conc) 5 mg PO BEDTIME [facility] Last Admin: 07/29/23 20:42 Dose: 5 mg Documented By: MANDY Ondansetron HCl (Ondansetron Hcl 4 Mg/2 Ml Vial) 4 mg IVPUSH Q8H PRN PRN Reason: Nausea and Vomiting Last Admin: 07/23/23 07:58 Dose: 4 mg Documented By: STUART Sodium Chloride (0.9 % Sodium Chloride Flush 3 Ml Syringe) 3 ml IVFLUSH QSHIFT [facility] Last Admin: 07/30/23 09:13 Dose: 3 ml Documented By: SO Labs 07/27/23 05:30 07/30/23 05:50 Labs: Laboratory Results - last 24 hr 07/30/23 05:50 Hold Purple Top SEE NOTE Estim Creat Clear Calc 99.3 Estimated GFR > 60 Microbiology Microbiology Results: Microbiology 07/29/23 09:14 Blood Culture - Preliminary Blood - Venous No growth after 24 hours. 07/29/23 09:14 Blood Culture - Preliminary Blood - Venous No growth after 24 hours. Assessment and Plan (1) Opioid withdrawal: Status: Acute (2) Bacteremia due to Staphylococcus aureus: Status: Acute (3) Polysubstance abuse: Status: Acute Plan 38-year-old female with past medical history of IVDA presented with nausea vomiting, fevers # Sepsis due to Gram-positive bacteremia in IVDU repeated Cx 07/29 negative for 24 hours now Echo with no obvious vegetations negative hiv and has +ve Hepatitis C that will need OP treatment Continue Daptomycin and Cefazolin ID input appreciated, teresa Abx, LAURA Consider LAURA if repeated cultures positive # Opiate dependence Addiction team eval Adjust Methadone dose as tolerated # Joints pain Likely related to infection Ibuprofen PRN increase activity as tolerated DVT prophylaxis with Lovenox Full code Reason continue hospitalization: Bacteremia on IV antibiotics pending -ve cultures Quality Stroke Does the patient have a stroke diagnosis?: No VTE Prior VTE?: No VTE Risk Level:: Medical - moderate - high VTE Device Contraindication: Treatment Not Indicated VTE Drug Contraindication: N/A - Med Ordered
--- NOTE | 2023-07-30 15:50 | MHC.CM.PN ---
per rounds pt not ready for dc awaitng blood cultures pts being followed by joanne
[2023-07-30] MEDS: methADONE HCl 20 MG/2 ML ORAL.CONC 5 MG PO (21:12)
[2023-07-31] MEDS: ceFAZolin Sodium/Dextrose,Iso 2 GM/50 ML PIGGYBACK IV ×3 (02:19→19:20)
[2023-07-31 02:45] VITALS: BP 113/64; PULSE 91; RESP 18; TEMP 36.4; O2SAT 98
[2023-07-31] MEDS: Ibuprofen 400 MG TABLET PO ×3 (05:06→19:19)
[2023-07-31 07:42] VITALS: BP 110/63; PULSE 89; RESP 18; TEMP 36.4; O2SAT 99
[2023-07-31] MEDS: methADONE HCl 20 MG/2 ML ORAL.CONC 70 MG PO (08:03)
[2023-07-31] MEDS: 0.9 % Sodium Chloride Flush 3 ML SYRINGE IVFLUSH ×3 (08:03→19:20)
--- NOTE | 2023-07-31 08:34 | P.PNIM_ITS ---
Subjective Subjective Date of Service: 07/31/23 Interval History: Seen and evaluated Feels overall good now reporting joints pain improving blood cultures from 07/29 negative Physical Exam 2 Vital Signs: Vital Signs: Last Vital Signs Temp 97.5 F 07/31/23 07:42 Pulse 89 07/31/23 07:42 Resp 18 07/31/23 07:42 BP 110/63 07/31/23 07:42 Pulse Ox 99 07/31/23 07:42 O2 Del Method Room Air 07/31/23 07:42 BMI result Body Mass Index 20.5 Const: Other: Constitutional : Awake, tired and weak, not in distress Neck : Normal inspection, Supple Cardiovascular : RRR, no JVP, no lower extremity edema Respiratory : good bilateral air entry, no crackles Gastrointestinal: soft, lax, Normal bowel sounds, Non tender Skin : Warm, Dry, multiple skin scabs Neurological : Alert & oriented x3, No focal deficit Objective Data Active Medications Acetaminophen (Acetaminophen 325 Mg Tablet) 650 mg PO Q6H PRN PRN Reason: Pain, Mild (Pain Scale 1-3) Last Admin: 07/28/23 20:08 Dose: 650 mg Documented By: FUNMILAYO Docusate Sodium (Docusate Sodium 100 Mg Capsule) 100 mg PO DAILY PRN PRN Reason: Constipation Enoxaparin Sodium (Enoxaparin Sodium 40 Mg/0.4 Ml Syringe) 40 mg SUBCUT Q24H [facility] Last Admin: 07/30/23 09:14 Dose: Not Given Documented By: SO Non-Admin Reason: Patient Refused Daptomycin 500 mg/ Sodium (Chloride) 60 mls @ 100 mls/hr IV Q24H [facility] Last Infusion: 07/30/23 13:42 Dose: Infused Documented By: SO Cefazolin Sodium/Dextrose (Ancef) 2 gm in 50 mls @ 100 mls/hr IV Q8H [facility] Stop: 08/01/23 10:59 Last Infusion: 07/31/23 02:49 Dose: Infused Documented By: MANDY Ibuprofen (Ibuprofen 400 Mg Tablet) 400 mg PO Q6H PRN PRN Reason: Pain, Moderate(Pain Scale 4-6) Last Admin: 07/31/23 08:06 Dose: 400 mg Documented By: GIOVANY Methadone HCl (Methadone Hcl 20 Mg/2 Ml Oral.Conc) 70 mg PO DAILY [facility] Last Admin: 07/31/23 08:03 Dose: 70 mg Documented By: GIOVANY Methadone HCl (Methadone Hcl 20 Mg/2 Ml Oral.Conc) 5 mg PO BEDTIME [facility] Last Admin: 07/30/23 21:12 Dose: 5 mg Documented By: MANDY Ondansetron HCl (Ondansetron Hcl 4 Mg/2 Ml Vial) 4 mg IVPUSH Q8H PRN PRN Reason: Nausea and Vomiting Last Admin: 07/23/23 07:58 Dose: 4 mg Documented By: STUART Sodium Chloride (0.9 % Sodium Chloride Flush 3 Ml Syringe) 3 ml IVFLUSH QSHIFT [facility] Last Admin: 07/31/23 08:03 Dose: 3 ml Documented By: GIOVANY Labs 07/27/23 05:30 07/30/23 05:50 Microbiology Microbiology Results: Microbiology 07/29/23 09:14 Blood Culture - Preliminary Blood - Venous No growth after 24 hours. 07/29/23 09:14 Blood Culture - Preliminary Blood - Venous No growth after 24 hours. Assessment and Plan (1) Bacteremia due to Staphylococcus aureus: Status: Acute (2) IV drug user: Status: Acute Plan 38-year-old female with past medical history of IVDA presented with nausea vomiting, fevers # Sepsis due to Gram-positive bacteremia in IVDU repeated Cx 07/29 negative for 24 hours now Echo with no obvious vegetations negative hiv and has +ve Hepatitis C that will need OP treatment ID input appreciated, change Abx Continue Daptomycin and Cefazolin (only 5 days) To get PICC line once Cx neg 48hrs # Opiate dependence Addiction team eval Adjust Methadone dose as tolerated # Joints pain Likely related to infection Ibuprofen PRN increase activity as tolerated DVT prophylaxis with Lovenox Full code Reason continue hospitalization: Bacteremia on IV antibiotics pending -ve cultures Quality Stroke Does the patient have a stroke diagnosis?: No VTE Prior VTE?: No VTE Risk Level:: Medical - moderate - high VTE Device Contraindication: Treatment Not Indicated VTE Drug Contraindication: N/A - Med Ordered
[2023-07-31] MEDS: DAPTOmycin 500 MG in 0.9 % Sodium Chloride 50 ML 100 MG IV (10:31)
--- NOTE | 2023-07-31 11:03 | MHC.RECOVRN ---
Met with pt to follow up and provide support. Pt feeling comfortable with current methadone dose. Denies withdrawal symptoms. Pt will need OTP linkage prior to dc once STR is established. Will continue to follow.
[2023-07-31 12:00] VITALS: BP 119/71; PULSE 91; RESP 18; TEMP 36.4; O2SAT 98
[2023-07-31 14:34] LABS: Creatinine Clr Calc Pharmacy 100.7; Estimated Glomerular Filt Rate > 60
[2023-07-31 15:53] VITALS: BP 102/52; PULSE 89; RESP 18; TEMP 36.7; O2SAT 97
--- NOTE | 2023-07-31 17:24 | HO.PICC ---
PICC Line Insertion NPICC Diagnosis: ABD pain/vomiting Indication: TPN Pertinent Labs: reviewed Technique: Following informed consent including risks, benefits and alternatives and using sterile technique including cap and mask, sterile gown, glove and drape, the right arm was prepped and draped in the usual sterile fashion of full barrier technique with CHG. Following completion of [place] Protocol the skin and soft tissues were anesthetized with 1% Lidocaine plain. Using ultrasound guidance, right brachial vein access was obtained. Over an 0.018 wire through peel-away sheath, a 5 FR triple lumen PASV Power PICC line was positioned. Catheter length is 38cm internal length, 0cm external length, for a total trimmed length of 38cm. The procedure was performed in Rm 272. Tip verification was performed by Nolan Foreman with Alpa 3CG. Tip located in SVC. Ultrasound was used to document vein patency and for needle entry. A formal ultrasound picture and cardiac rhythm strip was recorded. Vascular Director Of Professional Services has released the line for use and it is currently dressed with a StatLock, Tegaderm, and CHG disc. Verification has been performed for blood return and line patency. Arm Circumference: 22cm Equipment: get2play PowerPICC SOLO catheter Catheter Type: 5FR triple lumen PASV Lot #: [id number]
[2023-07-31 19:44] VITALS: BP 110/68; PULSE 109; RESP 18; TEMP 37.4; O2SAT 97
[2023-07-31] MEDS: methADONE HCl 20 MG/2 ML ORAL.CONC 5 MG PO (21:37)
[2023-07-31 23:45] VITALS: BP 124/71; PULSE 106; RESP 18; TEMP 36.2; O2SAT 100
[2023-08-01] MEDS: ceFAZolin Sodium/Dextrose,Iso 2 GM/50 ML PIGGYBACK IV (02:54)
[2023-08-01 03:55] VITALS: BP 109/65; PULSE 102; RESP 18; TEMP 36.4; O2SAT 97
[2023-08-01] MEDS: Ibuprofen 400 MG TABLET PO ×3 (05:31→20:22)
[2023-08-01 08:00] VITALS: BP 116/68; PULSE 96; RESP 16; TEMP 36.1; O2SAT 98
[2023-08-01] MEDS: Enoxaparin Sodium 40 MG/0.4 ML SYRINGE SUBCUT (08:12)
[2023-08-01] MEDS: methADONE HCl 20 MG/2 ML ORAL.CONC 70 MG PO (08:13)
[2023-08-01] MEDS: 0.9 % Sodium Chloride Flush 3 ML SYRINGE IVFLUSH ×3 (08:13→20:24)
--- NOTE | 2023-08-01 10:14 | HO.PM.IMPN ---
Subjective Subjective Date of Service: 08/01/23 Interval History: Seen and evaluated Feels overall good now joints pain improved blood cultures from 07/29 negative Review of Systems Review of Systems: Yes all other systems are reviewed and are negative Physical Exam Vital Signs: Vital Signs: Last Vital Signs Temp 96.9 F 08/01/23 08:00 Pulse 96 08/01/23 08:00 Resp 16 08/01/23 08:00 BP 116/68 08/01/23 08:00 Pulse Ox 98 08/01/23 08:00 O2 Del Method Room Air 08/01/23 08:00 BMI result Body Mass Index 20.5 Const: Other: Constitutional : Awake, tired and weak, not in distress Neck : Normal inspection, Supple Cardiovascular : RRR, no JVP, no lower extremity edema Respiratory : good bilateral air entry, no crackles Gastrointestinal: soft, lax, Normal bowel sounds, Non tender Skin : Warm, Dry, multiple skin scabs Neurological : Alert & oriented x3, No focal deficit Objective Data Active Medications Acetaminophen (Acetaminophen 325 Mg Tablet) 650 mg PO Q6H PRN PRN Reason: Pain, Mild (Pain Scale 1-3) Last Admin: 07/28/23 20:08 Dose: 650 mg Documented By: FUNMILAYO Docusate Sodium (Docusate Sodium 100 Mg Capsule) 100 mg PO DAILY PRN PRN Reason: Constipation Enoxaparin Sodium (Enoxaparin Sodium 40 Mg/0.4 Ml Syringe) 40 mg SUBCUT Q24H [facility] Last Admin: 08/01/23 08:12 Dose: 40 mg Documented By: GIOVANY Daptomycin 500 mg/ Sodium (Chloride) 60 mls @ 100 mls/hr IV Q24H [facility] Last Infusion: 07/31/23 11:13 Dose: Infused Documented By: GIOVANY Cefazolin Sodium/Dextrose (Ancef) 2 gm in 50 mls @ 100 mls/hr IV Q8H [facility] Stop: 08/01/23 10:59 Last Infusion: 08/01/23 03:24 Dose: Infused Documented By: YANETH Ibuprofen (Ibuprofen 400 Mg Tablet) 400 mg PO Q6H PRN PRN Reason: Pain, Moderate(Pain Scale 4-6) Last Admin: 08/01/23 05:31 Dose: 400 mg Documented By: YANETH Methadone HCl (Methadone Hcl 20 Mg/2 Ml Oral.Conc) 70 mg PO DAILY [facility] Last Admin: 08/01/23 08:13 Dose: 70 mg Documented By: GIOVANY Methadone HCl (Methadone Hcl 20 Mg/2 Ml Oral.Conc) 5 mg PO BEDTIME [facility] Last Admin: 07/31/23 21:37 Dose: 5 mg Documented By: YANETH Ondansetron HCl (Ondansetron Hcl 4 Mg/2 Ml Vial) 4 mg IVPUSH Q8H PRN PRN Reason: Nausea and Vomiting Last Admin: 07/23/23 07:58 Dose: 4 mg Documented By: STUART Sodium Chloride (0.9 % Sodium Chloride Flush 3 Ml Syringe) 3 ml IVFLUSH QSHIFT [facility] Last Admin: 08/01/23 08:13 Dose: 3 ml Documented By: GIOVANY Labs 07/27/23 05:30 07/31/23 13:21 Labs: Laboratory Results - last 24 hr 07/31/23 13:21 Estim Creat Clear Calc 100.7 Estimated GFR > 60 Microbiology Microbiology Results: Microbiology 07/29/23 09:14 Blood Culture - Preliminary Blood - Venous No growth after 48 hours. 07/29/23 09:14 Blood Culture - Preliminary Blood - Venous No growth after 48 hours. Assessment and Plan (1) Bacteremia due to Staphylococcus aureus: Status: Acute (2) Opioid use disorder: Status: Acute Plan 38-year-old female with past medical history of IVDA presented with nausea vomiting, fevers # Sepsis due to Gram-positive bacteremia in IVDU repeated Cx 07/29 negative for 24 hours now Echo with no obvious vegetations negative hiv and has +ve Hepatitis C that will need OP treatment ID input appreciated, change Abx Continue Daptomycin and Cefazolin (only 5 days) To get Mid-line for 4 weeks of Abx (End 08/26) # Opiate dependence Addiction team eval Adjust Methadone dose as tolerated # Joints pain Likely related to infection Ibuprofen PRN increase activity as tolerated DVT prophylaxis with Lovenox Full code Reason continue hospitalization: Bacteremia on IV antibiotics pending Midline placement and safe discharge plan Quality Stroke Does the patient have a stroke diagnosis?: No VTE Prior VTE?: No VTE Risk Level:: Medical - moderate - high VTE Device Contraindication: Treatment Not Indicated VTE Drug Contraindication: N/A - Med Ordered
[2023-08-01] MEDS: DAPTOmycin 500 MG in 0.9 % Sodium Chloride 50 ML 100 MG IV (11:01)
--- NOTE | 2023-08-01 12:06 | HO.MIDLINE_ITS ---
Midline Insertion MIDLINE INSERTION Diagnosis: bacteremia Indication: l4 wks ABT Pertinent Labs: reviewed Technique: Using sterile technique including cap and mask, glove and drape, the right arm was prepped and draped in the usual sterile fashion of full barrier technique with CHG. Using ultrasound guidance, right basilic vein access was obtained . 20G x 8cm midline catheter was positioned. The procedure was performed in rm 272. Ultrasound was used to document vein patency and for needle entry. A formal ultrasound picture was recorded. Vascular Ecological Technical Officer has released the line for use and it is currently dressed with a StatLock, Tegaderm, and CHG disc. Verification has been performed for blood return and line patency. Arm Circumference: 25cm Equipment: BARD PowerGlide ST midline catheter Catheter Type: 20g x 8cm Lot #: [id number]
[2023-08-01 12:16] VITALS: BP 138/78; PULSE 99; RESP 18; TEMP 36.3; O2SAT 98
[2023-08-01 14:49] LABS: Creatinine Clr Calc Pharmacy 96.4; Estimated Glomerular Filt Rate > 60
[2023-08-01 15:06] VITALS: BP 125/70; PULSE 100; RESP 16; TEMP 36; O2SAT 97
--- NOTE | 2023-08-01 15:11 | MHC.CM.PN ---
per rounds pt ready for dc thee are no approbriate beds for pt search continue
[2023-08-01] MEDS: 0.9 % Sodium Chloride Flush 10 ML SYRINGE 5 ML IVFLUSH ×2 (15:42→20:24)
--- NOTE | 2023-08-01 16:34 | P.EN_ITS ---
Event Note Date of Service: 08/01/23 Event Note: Addiction note Per RN, patient preparing for discharge to [facility] for IV abx. Methadone currently split at 70mg in AM and 5mg in the evening. Plan: Last 5mg dose this evening 08/01/23 then d/c AM dose of methadone starting on 08/02 will be 75mg QD Time Spent With Patient Time: Total time managing care of this patient today ____ minutes.
[2023-08-01 19:04] VITALS: BP 107/57; PULSE 99; RESP 18; TEMP 36.9; O2SAT 98
[2023-08-01] MEDS: methADONE HCl 20 MG/2 ML ORAL.CONC 5 MG PO (21:30)
[2023-08-01 23:16] VITALS: BP 125/72; PULSE 99; RESP 16; TEMP 36; O2SAT 97
[2023-08-02 04:00] VITALS: BP 129/76; PULSE 98; RESP 16; TEMP 36.8; O2SAT 97
[2023-08-02] MEDS: Ibuprofen 400 MG TABLET PO ×2 (05:53→11:52)
[2023-08-02 06:12] LABS: Creatinine Clr Calc Pharmacy 102.3; Estimated Glomerular Filt Rate > 60
[2023-08-02 07:28] VITALS: BP 124/70; PULSE 96; RESP 18; TEMP 37.1; O2SAT 97
[2023-08-02] MEDS: 0.9 % Sodium Chloride Flush 3 ML SYRINGE IVFLUSH ×3 (08:26→23:06)
[2023-08-02] MEDS: methADONE HCl 20 MG/2 ML ORAL.CONC 75 MG PO (08:26)
[2023-08-02] MEDS: 0.9 % Sodium Chloride Flush 10 ML SYRINGE 5 ML IVFLUSH ×3 (08:29→23:06)
--- NOTE | 2023-08-02 09:26 | P.PNIM_ITS ---
Subjective Subjective Date of Service: 08/02/23 Interval History: no complaints Physical Exam 2 Vital Signs: Vital Signs: Last Vital Signs Temp 98.7 F 08/02/23 07:28 Pulse 96 08/02/23 07:28 Resp 18 08/02/23 07:28 BP 124/70 08/02/23 07:28 Pulse Ox 97 08/02/23 07:28 O2 Del Method Room Air 08/02/23 07:28 BMI result Body Mass Index 20.5 Const: Other: Constitutional : Awake, tired and weak, not in distress Neck : Normal inspection, Supple Cardiovascular : RRR, no JVP, no lower extremity edema Respiratory : good bilateral air entry, no crackles Gastrointestinal: soft, lax, Normal bowel sounds, Non tender Skin : Warm, Dry, multiple skin scabs Neurological : Alert & oriented x3, No focal deficit Objective Data Active Medications Acetaminophen (Acetaminophen 325 Mg Tablet) 650 mg PO Q6H PRN PRN Reason: Pain, Mild (Pain Scale 1-3) Last Admin: 07/28/23 20:08 Dose: 650 mg Documented By: FUNMILAYO Docusate Sodium (Docusate Sodium 100 Mg Capsule) 100 mg PO DAILY PRN PRN Reason: Constipation Enoxaparin Sodium (Enoxaparin Sodium 40 Mg/0.4 Ml Syringe) 40 mg SUBCUT Q24H [facility] Last Admin: 08/02/23 08:29 Dose: Not Given Documented By: VERONICA Non-Admin Reason: Patient Refused Daptomycin 500 mg/ Sodium (Chloride) 60 mls @ 100 mls/hr IV Q24H [facility] Last Infusion: 08/01/23 11:37 Dose: Infused Documented By: GIOVANY Ibuprofen (Ibuprofen 400 Mg Tablet) 400 mg PO Q6H PRN PRN Reason: Pain, Moderate(Pain Scale 4-6) Last Admin: 08/02/23 05:53 Dose: 400 mg Documented By: YANETH Methadone HCl (Methadone Hcl 20 Mg/2 Ml Oral.Conc) 75 mg PO DAILY [facility] Last Admin: 08/02/23 08:26 Dose: 75 mg Documented By: VERONICA Ondansetron HCl (Ondansetron Hcl 4 Mg/2 Ml Vial) 4 mg IVPUSH Q8H PRN PRN Reason: Nausea and Vomiting Last Admin: 07/23/23 07:58 Dose: 4 mg Documented By: STUART Sodium Chloride (0.9 % Sodium Chloride Flush 3 Ml Syringe) 3 ml IVFLUSH QSHIFT [facility] Last Admin: 08/02/23 08:26 Dose: 3 ml Documented By: VERONICA Sodium Chloride (0.9 % Sodium Chloride Flush 10 Ml Syringe) 5 ml IVFLUSH QSHIFT [facility] Last Admin: 08/02/23 08:29 Dose: 5 ml Documented By: VERONICA Labs 07/27/23 05:30 08/02/23 05:29 Labs: Laboratory Results - last 24 hr 08/01/23 08/02/23 14:10 05:29 Hold Purple Top SEE NOTE Estim Creat Clear Calc 96.4 102.3 Estimated GFR > 60 > 60 Assessment and Plan (1) Bacteremia due to Staphylococcus aureus: Status: Acute (2) Opioid use disorder: Status: Acute Plan 38-year-old female with past medical history of IVDA presented with nausea vomiting, fevers Sepsis due to MRSA bacteremia in IVDU repeated Cx 07/29 negative Echo with no obvious vegetations negative hiv and has +ve Hepatitis C that will need OP treatment Continue Daptomycin s/p Cefazolin 5 days 4 weeks of Abx (End 08/26) has midline Opiate dependence Methadone Joints pain Likely related to infection Ibuprofen PRN DVT prophylaxis with Lovenox Full code Reason continue hospitalization: needs iv abx, awaiting placement Quality Stroke Does the patient have a stroke diagnosis?: No VTE Prior VTE?: No VTE Risk Level:: Medical - moderate - high VTE Device Contraindication: Treatment Not Indicated VTE Drug Contraindication: N/A - Med Ordered
--- NOTE | 2023-08-02 10:47 | MHC.RECOVRN ---
Pts referral sent to [facility] in [place]. Letter requested from Vivian Monterroso to [employer] stating pt will be able to dose at their [facility] once discharged from [facility]. Awaiting confirmation from [employer] that letter has been sent.
[2023-08-02] MEDS: DAPTOmycin 500 MG in 0.9 % Sodium Chloride 50 ML 100 MG IV (11:50)
--- NOTE | 2023-08-02 13:45 | MHC.CM.PN ---
Addendum entered by Rosalina Bahena 08/02/23 15:31: PER ROSA RIZVI, DAPTOMYCIN IS A BARRIER UNLESS [facility] WILL DO A CARVE OUT FOR COST. SHE WILL INQUIRE AND LET CM KNOW. Addendum entered by Rosalina Bahena 08/02/23 15:11: ROSA HARRIS IN [place] HAS OFFERED A BED AND HAS STARTED INSURANCE AUTH . [employer] HAS APPROVED GUEST DOSING WELL. NOTIFIED. CM WILL CONTINUE TO AWAIT AUTH. Original Note: NO BED OFFERS FOR [facility] FOR LT IV RX, ROSA COHENISON STATES SHE WILL REVIEW , STILL AWAITING RESPONSE. CM WILL CONTINUE TO FOLLOW FOR PLACEMENT.
[2023-08-02 15:33] VITALS: BP 120/68; PULSE 100; RESP 18; TEMP 36.6; O2SAT 98
--- NOTE | 2023-08-02 16:15 | MHC.RECOVRN ---
Pt accepted to dose at [facility] while at [facility]. Pt will follow up with Vivian Monterroso after dc from [facility] to continue methadone.
[2023-08-02 19:50] VITALS: BP 109/79; PULSE 108; RESP 18; TEMP 36.3; O2SAT 98
[2023-08-03 03:41] VITALS: BP 112/64; PULSE 98; RESP 16; TEMP 37.1; O2SAT 97
[2023-08-03] MEDS: Ibuprofen 400 MG TABLET PO ×3 (03:47→22:20)
[2023-08-03 08:00] VITALS: BP 103/63; PULSE 99; RESP 18; TEMP 36.8; O2SAT 100
[2023-08-03] MEDS: methADONE HCl 20 MG/2 ML ORAL.CONC 75 MG PO (08:14)
[2023-08-03] MEDS: 0.9 % Sodium Chloride Flush 3 ML SYRINGE IVFLUSH ×3 (08:15→22:20)
[2023-08-03] MEDS: 0.9 % Sodium Chloride Flush 10 ML SYRINGE 5 ML IVFLUSH ×3 (08:15→22:20)
--- NOTE | 2023-08-03 09:09 | P.PNIM_ITS ---
Subjective Subjective Date of Service: 08/03/23 Interval History: no complaints Physical Exam 2 Vital Signs: Vital Signs: Last Vital Signs Temp 98.3 F 08/03/23 08:00 Pulse 99 08/03/23 08:00 Resp 18 08/03/23 08:00 BP 103/63 08/03/23 08:00 Pulse Ox 100 08/03/23 08:00 O2 Del Method Room Air 08/03/23 08:00 BMI result Body Mass Index 20.5 Const: Other: Constitutional : Awake, tired and weak, not in distress Neck : Normal inspection, Supple Cardiovascular : RRR, no JVP, no lower extremity edema Respiratory : good bilateral air entry, no crackles Gastrointestinal: soft, lax, Normal bowel sounds, Non tender Skin : Warm, Dry, multiple skin scabs Neurological : Alert & oriented x3, No focal deficit Objective Data Active Medications Acetaminophen (Acetaminophen 325 Mg Tablet) 650 mg PO Q6H PRN PRN Reason: Pain, Mild (Pain Scale 1-3) Last Admin: 07/28/23 20:08 Dose: 650 mg Documented By: FUNMILAYO Docusate Sodium (Docusate Sodium 100 Mg Capsule) 100 mg PO DAILY PRN PRN Reason: Constipation Enoxaparin Sodium (Enoxaparin Sodium 40 Mg/0.4 Ml Syringe) 40 mg SUBCUT Q24H [facility] Last Admin: 08/03/23 08:19 Dose: Not Given Documented By: VERONICA Non-Admin Reason: Patient Refused Daptomycin 500 mg/ Sodium (Chloride) 60 mls @ 100 mls/hr IV Q24H [facility] Last Infusion: 08/02/23 12:44 Dose: Infused Documented By: VERONICA Ibuprofen (Ibuprofen 400 Mg Tablet) 400 mg PO Q6H PRN PRN Reason: Pain, Moderate(Pain Scale 4-6) Last Admin: 08/03/23 03:47 Dose: 400 mg Documented By: YANETH Methadone HCl (Methadone Hcl 20 Mg/2 Ml Oral.Conc) 75 mg PO DAILY [facility] Last Admin: 08/03/23 08:14 Dose: 75 mg Documented By: VERONICA Ondansetron HCl (Ondansetron Hcl 4 Mg/2 Ml Vial) 4 mg IVPUSH Q8H PRN PRN Reason: Nausea and Vomiting Last Admin: 07/23/23 07:58 Dose: 4 mg Documented By: STUART Sodium Chloride (0.9 % Sodium Chloride Flush 3 Ml Syringe) [facility] Last Admin: 08/03/23 08:15 Dose: 3 ml Documented By: VERONICA Sodium Chloride (0.9 % Sodium Chloride Flush 10 Ml Syringe) [facility] Last Admin: 08/03/23 08:15 Dose: 5 ml Documented By: VERONICA Labs 07/27/23 05:30 08/02/23 05:29 Assessment and Plan (1) Bacteremia due to Staphylococcus aureus: Status: Acute (2) Opioid use disorder: Status: Acute Plan 38-year-old female with past medical history of IVDA presented with nausea vomiting, fevers Sepsis due to MRSA bacteremia in IVDU repeated Cx 07/29 negative Echo with no obvious vegetations negative hiv and has +ve Hepatitis C that will need OP treatment Continue Daptomycin s/p Cefazolin 5 days 4 weeks of Abx (End 08/26) has midline Opiate dependence Methadone Joints pain Likely related to infection Ibuprofen PRN DVT prophylaxis with Lovenox Full code Reason continue hospitalization: needs iv abx, awaiting placement Quality Stroke Does the patient have a stroke diagnosis?: No VTE Prior VTE?: No VTE Risk Level:: Medical - moderate - high VTE Device Contraindication: Treatment Not Indicated VTE Drug Contraindication: N/A - Med Ordered
--- NOTE | 2023-08-03 10:58 | P.PNADD_ITS ---
Subjective Subjective Date of Service: 08/03/23 Reason For Visit: IVDU, bacterimia Interim History: Patient seen in follow up Due to discharge soon to [facility] to complete IV abx. Methadone currently at 75mg QD. Explained to patient d/c of HS dose and adding to AM dose. Patient reporting some anxiety about transferring to facility. Anxious that she will be stranded out there . Provided patient reassurance that this would not occur. Feels good with current methadone dose Review of Systems Constitutional: Reports as per HPI and Reports no additional constitutional complaints Mental Status Exam Mental Status Exam Patient Appearance: Well Grooomed Level of Consciousness: Awake, Appropriate and Alert Diagnostics Vital Signs (24Hr): Vital Signs - 24 hr 08/02/23 15:33 08/02/23 19:50 08/03/23 03:41 Temperature 97.9 F 97.3 F 98.7 F Pulse Rate 100 108 H 98 Respiratory Rate 18 18 16 Blood Pressure 120/68 109/79 112/64 Pulse Oximetry 98 98 97 Oxygen Delivery Method Room Air Room Air Room Air 08/03/23 08:00 Temperature 98.3 F Pulse Rate 99 Respiratory Rate 18 Blood Pressure 103/63 Pulse Oximetry 100 Oxygen Delivery Method Room Air BMI result Body Mass Index 20.5 Labs 07/27/23 05:30 08/02/23 05:29 Labs: Laboratory Results - last 48 hr 08/01/23 08/02/23 14:10 05:29 Hold Purple Top SEE NOTE Creatinine 0.69 0.65 Estim Creat Clear Calc 96.4 102.3 Estimated GFR > 60 > 60 Imaging Radiology Impressions: ITS Impressions Chest X-Ray 07/22/23 19:17 IMPRESSION: No acute intrathoracic disease. Some nodular densities are seen as described above. These may or may not be in the lungs. A CT scan of the chest could be performed for further evaluation. Abdomen/Pelvis CT 07/23/23 00:05 IMPRESSION: 1. A cause for the patient's diarrhea and abdominal pain has not been found. 2. Incidental note made of hepatosplenomegaly, colonic diverticulosis without diverticulitis, chronic pelvic fractures and degenerative changes in the spine with scoliosis. Fleischner guidelines were followed. Medications Medications Current Medications Acetaminophen (Acetaminophen 325 Mg Tablet) 650 mg PO Q6H PRN PRN Reason: Pain, Mild (Pain Scale 1-3) Last Admin: 07/28/23 20:08 Dose: 650 mg Docusate Sodium (Docusate Sodium 100 Mg Capsule) 100 mg PO DAILY PRN PRN Reason: Constipation Enoxaparin Sodium (Enoxaparin Sodium 40 Mg/0.4 Ml Syringe) 40 mg SUBCUT Q24H [facility] Last Admin: 08/03/23 08:19 Dose: Not Given Daptomycin 500 mg/ Sodium (Chloride) 60 mls @ 100 mls/hr IV Q24H [facility] Last Infusion: 08/02/23 12:44 Dose: Infused Ibuprofen (Ibuprofen 400 Mg Tablet) 400 mg PO Q6H PRN PRN Reason: Pain, Moderate(Pain Scale 4-6) Last Admin: 08/03/23 03:47 Dose: 400 mg Methadone HCl (Methadone Hcl 20 Mg/2 Ml Oral.Conc) 75 mg PO DAILY [facility] Last Admin: 08/03/23 08:14 Dose: 75 mg Ondansetron HCl (Ondansetron Hcl 4 Mg/2 Ml Vial) 4 mg IVPUSH Q8H PRN PRN Reason: Nausea and Vomiting Last Admin: 07/23/23 07:58 Dose: 4 mg Sodium Chloride (0.9 % Sodium Chloride Flush 3 Ml Syringe) 3 ml IVFLUSH [facility] Last Admin: 08/03/23 08:15 Dose: 3 ml Sodium Chloride (0.9 % Sodium Chloride Flush 10 Ml Syringe) 5 ml IVFLUSH [facility] Last Admin: 08/03/23 08:15 Dose: 5 ml Allergies Allergies Allergy/AdvReac Type Severity Reaction Status Date / Time No Known Allergies Allergy Verified 07/22/23 22:50 [No Known Allergies*] Assessment & Plan Assessment & Plan (1) Opioid use disorder: Status: Acute Code(s): F11.90 - Opioid use, unspecified, uncomplicated Assessment and Plan: * continue methadone at current dose Total time managing care of this patient today ____ minutes.
[2023-08-03] MEDS: DAPTOmycin 500 MG in 0.9 % Sodium Chloride 50 ML 100 MG IV (11:35)
--- NOTE | 2023-08-03 13:39 | MHC.CM.PN ---
spoke with cosmo from [facility] [phone] she was updated re luda barriers
--- NOTE | 2023-08-03 15:04 | MHC.RECOVRN ---
Received a call from [employer] re: discharge date and start date to dose at the [facility]. T/w informed [facility] there are some barriers to dc. [facility] is closed over the weekend and would not be able to dose pt if transferred to [facility] over the weekend. CM aware.
[2023-08-03 16:00] VITALS: BP 104/60; PULSE 98; RESP 18; TEMP 36.8; O2SAT 98
[2023-08-03 19:30] VITALS: BP 127/70; PULSE 106; RESP 18; TEMP 36.8; O2SAT 98
[2023-08-04 04:00] VITALS: BP 118/74; PULSE 70; RESP 18; TEMP 36.2; O2SAT 98
[2023-08-04] MEDS: methADONE HCl 20 MG/2 ML ORAL.CONC 75 MG PO (07:57)
[2023-08-04] MEDS: 0.9 % Sodium Chloride Flush 10 ML SYRINGE 5 ML IVFLUSH ×3 (07:57→19:51)
[2023-08-04] MEDS: 0.9 % Sodium Chloride Flush 3 ML SYRINGE IVFLUSH ×2 (07:57→19:51)
[2023-08-04 08:00] VITALS: BP 121/64; PULSE 95; RESP 16; TEMP 35.9; O2SAT 99
--- NOTE | 2023-08-04 09:57 | P.PNIM_ITS ---
Subjective Subjective Date of Service: 08/04/23 Interval History: no complaints Physical Exam 2 Vital Signs: Vital Signs: Last Vital Signs Temp 96.7 F L 08/04/23 08:00 Pulse 95 08/04/23 08:00 Resp 16 08/04/23 08:00 BP 121/64 08/04/23 08:00 Pulse Ox 99 08/04/23 08:00 O2 Del Method Room Air 08/04/23 08:00 BMI result Body Mass Index 20.5 Const: Other: Constitutional : Awake, tired and weak, not in distress Neck : Normal inspection, Supple Cardiovascular : RRR, no JVP, no lower extremity edema Respiratory : good bilateral air entry, no crackles Gastrointestinal: soft, lax, Normal bowel sounds, Non tender Skin : Warm, Dry, multiple skin scabs Neurological : Alert & oriented x3, No focal deficit Objective Data Active Medications Acetaminophen (Acetaminophen 325 Mg Tablet) 650 mg PO Q6H PRN PRN Reason: Pain, Mild (Pain Scale 1-3) Last Admin: 07/28/23 20:08 Dose: 650 mg Documented By: FUNMILAYO Docusate Sodium (Docusate Sodium 100 Mg Capsule) 100 mg PO DAILY PRN PRN Reason: Constipation Enoxaparin Sodium (Enoxaparin Sodium 40 Mg/0.4 Ml Syringe) 40 mg SUBCUT Q24H [facility] Last Admin: 08/03/23 08:19 Dose: Not Given Documented By: VERONICA Non-Admin Reason: Patient Refused Daptomycin 500 mg/ Sodium (Chloride) 60 mls @ 100 mls/hr IV Q24H [facility] Last Infusion: 08/03/23 12:31 Dose: Infused Documented By: VERONICA Ibuprofen (Ibuprofen 400 Mg Tablet) 400 mg PO Q6H PRN PRN Reason: Pain, Moderate(Pain Scale 4-6) Last Admin: 08/03/23 22:20 Dose: 400 mg Documented By: YANETH Methadone HCl (Methadone Hcl 20 Mg/2 Ml Oral.Conc) 75 mg PO DAILY [facility] Last Admin: 08/04/23 07:57 Dose: 75 mg Documented By: DAVID Ondansetron HCl (Ondansetron Hcl 4 Mg/2 Ml Vial) 4 mg IVPUSH Q8H PRN PRN Reason: Nausea and Vomiting Last Admin: 07/23/23 07:58 Dose: 4 mg Documented By: STUART Sodium Chloride (0.9 % Sodium Chloride Flush 3 Ml Syringe) [facility] Last Admin: 08/04/23 07:57 Dose: 3 ml Documented By: DAVID Sodium Chloride (0.9 % Sodium Chloride Flush 10 Ml Syringe) 5 ml IVFLUSH [facility] Last Admin: 08/04/23 07:57 Dose: 5 ml Documented By: DAVID Labs 07/27/23 05:30 08/02/23 05:29 Microbiology Microbiology Results: Microbiology 07/29/23 09:14 Blood Culture - Final Blood - Venous No growth after 5 days. 07/29/23 09:14 Blood Culture - Final Blood - Venous No growth after 5 days. Assessment and Plan (1) Bacteremia due to Staphylococcus aureus: Status: Acute (2) Opioid use disorder: Status: Acute Plan 38-year-old female with past medical history of IVDA presented with nausea vomiting, fevers Sepsis due to MRSA bacteremia in IVDU repeated Cx 07/29 negative Echo with no obvious vegetations negative hiv and has +ve Hepatitis C that will need OP treatment Continue Daptomycin s/p Cefazolin 5 days 4 weeks of Abx (End 08/26) has midline Opiate dependence Methadone Joints pain Likely related to infection Ibuprofen PRN DVT prophylaxis with Lovenox Full code Reason continue hospitalization: needs iv abx, awaiting placement Quality Stroke Does the patient have a stroke diagnosis?: No VTE Prior VTE?: No VTE Risk Level:: Medical - moderate - high VTE Device Contraindication: Treatment Not Indicated VTE Drug Contraindication: N/A - Med Ordered
[2023-08-04] MEDS: DAPTOmycin 500 MG in 0.9 % Sodium Chloride 50 ML 100 MG IV (10:40)
[2023-08-04] MEDS: Enoxaparin Sodium 40 MG/0.4 ML SYRINGE SUBCUT (10:40)
[2023-08-04] MEDS: Ibuprofen 400 MG TABLET PO ×2 (10:40→19:52)
--- NOTE | 2023-08-04 11:08 | MHC.RECOVRN ---
Recover RN met with patient in room 347-1. She is sitting up, watching TV and coloring. She's A+Ox3, cooperative and pleasant. Patient doing well with current dose Methadone 75mg PO- tolerating well. Denies any concerning s/s. She did voice concern regarding her discharge to an [facility] that's really far away as she worries she may not be able to get transportation back to this area. RN offered support and empathetic listening. Discussed some options for transportation including free fare for [facility] this month and speaking with the hospice social worker at the program of what they might have to offer. Encouraged her to take one day at a time and try to focus on her health. Given additional coloring book- patient very appreciative of this as it's helping her mental health. Discussed with Caprice Ervin APRN.
[2023-08-04 16:00] VITALS: BP 121/67; PULSE 92; RESP 16; TEMP 36.2
[2023-08-04 20:00] VITALS: BP 114/65; PULSE 102; RESP 18; TEMP 36.5; O2SAT 96
[2023-08-05 00:39] VITALS: BP 108/60; PULSE 100; RESP 18; TEMP 36.5; O2SAT 98
[2023-08-05] MEDS: 0.9 % Sodium Chloride Flush 10 ML SYRINGE 5 ML IVFLUSH ×2 (07:41→15:18)
[2023-08-05] MEDS: Ibuprofen 400 MG TABLET PO ×2 (07:41→15:17)
[2023-08-05] MEDS: methADONE HCl 20 MG/2 ML ORAL.CONC 75 MG PO (07:41)
[2023-08-05 08:00] VITALS: BP 119/66; PULSE 100; RESP 16; TEMP 36.6; O2SAT 98
--- NOTE | 2023-08-05 08:11 | HO.PM.IMPN ---
Subjective Subjective Date of Service: 08/05/23 Interval History: no complaints Physical Exam Vital Signs: Vital Signs: Last Vital Signs Temp 97.7 F 08/05/23 00:39 Pulse 100 08/05/23 00:39 Resp 18 08/05/23 00:39 BP 108/60 08/05/23 00:39 Pulse Ox 98 08/05/23 00:39 O2 Del Method Room Air 08/05/23 00:39 BMI result Body Mass Index 20.5 Const: Other: Constitutional : Awake, tired and weak, not in distress Neck : Normal inspection, Supple Cardiovascular : RRR, no JVP, no lower extremity edema Respiratory : good bilateral air entry, no crackles Gastrointestinal: soft, lax, Normal bowel sounds, Non tender Skin : Warm, Dry, multiple skin scabs Neurological : Alert & oriented x3, No focal deficit Objective Data Active Medications Acetaminophen (Acetaminophen 325 Mg Tablet) 650 mg PO Q6H PRN PRN Reason: Pain, Mild (Pain Scale 1-3) Last Admin: 07/28/23 20:08 Dose: 650 mg Documented By: FUNMILAYO Docusate Sodium (Docusate Sodium 100 Mg Capsule) 100 mg PO DAILY PRN PRN Reason: Constipation Enoxaparin Sodium (Enoxaparin Sodium 40 Mg/0.4 Ml Syringe) 40 mg SUBCUT Q24H [facility] Last Admin: 08/04/23 10:40 Dose: 40 mg Documented By: DAVID Daptomycin 500 mg/ Sodium (Chloride) 60 mls @ 100 mls/hr IV Q24H [facility] Last Infusion: 08/04/23 11:19 Dose: Infused Documented By: DAVID Ibuprofen (Ibuprofen 400 Mg Tablet) 400 mg PO Q6H PRN PRN Reason: Pain, Moderate(Pain Scale 4-6) Last Admin: 08/05/23 07:41 Dose: 400 mg Documented By: DAVID Methadone HCl (Methadone Hcl 20 Mg/2 Ml Oral.Conc) 75 mg PO DAILY [facility] Last Admin: 08/05/23 07:41 Dose: 75 mg Documented By: DAVID Ondansetron HCl (Ondansetron Hcl 4 Mg/2 Ml Vial) 4 mg IVPUSH Q8H PRN PRN Reason: Nausea and Vomiting Last Admin: 07/23/23 07:58 Dose: 4 mg Documented By: STUART Sodium Chloride (0.9 % Sodium Chloride Flush 3 Ml Syringe) 3 ml IVFLUSH QSHIFT [facility] Last Admin: 08/05/23 07:04 Dose: Not Given Documented By: DAVID Non-Admin Reason: Duplicate Order Sodium Chloride (0.9 % Sodium Chloride Flush 10 Ml Syringe) 5 ml IVFLUSH QSHIFT [facility] Last Admin: 08/05/23 07:41 Dose: 5 ml Documented By: DAVID Labs 07/27/23 05:30 08/02/23 05:29 Assessment and Plan (1) Bacteremia due to Staphylococcus aureus: Status: Acute (2) Opioid use disorder: Status: Acute Plan 38-year-old female with past medical history of IVDA presented with nausea vomiting, fevers Sepsis due to MRSA bacteremia in IVDU repeated Cx 07/29 negative Echo with no obvious vegetations negative hiv and has +ve Hepatitis C that will need OP treatment Continue Daptomycin s/p Cefazolin 5 days 4 weeks of Abx (End 08/26) has midline Opiate dependence Methadone Joints pain Likely related to infection Ibuprofen PRN DVT prophylaxis with Lovenox Full code Reason continue hospitalization: needs iv abx, awaiting placement Quality Stroke Does the patient have a stroke diagnosis?: No VTE Prior VTE?: No VTE Risk Level:: Medical - moderate - high VTE Device Contraindication: Treatment Not Indicated VTE Drug Contraindication: N/A - Med Ordered
[2023-08-05] MEDS: DAPTOmycin 500 MG in 0.9 % Sodium Chloride 50 ML 100 MG IV (10:59)
[2023-08-05] MEDS: Enoxaparin Sodium 40 MG/0.4 ML SYRINGE SUBCUT (10:59)
--- NOTE | 2023-08-05 13:39 | MHC.RECOVRN ---
RN met with patient at bedside in 347. She reports feeling bored , but otherwise doing well. Patient denies any concerning s/s of withdrawal- tolerating Methadone 75mg PO well. Requesting books to read- will ask recovery team to assist if able.
[2023-08-05 16:00] VITALS: BP 125/77; PULSE 106; RESP 14; TEMP 36.5; O2SAT 98
[2023-08-05 19:57] VITALS: BP 111/67; PULSE 94; RESP 14; TEMP 36.6; O2SAT 98
[2023-08-06] MEDS: 0.9 % Sodium Chloride Flush 3 ML SYRINGE IVFLUSH ×2 (00:51→15:02)
[2023-08-06] MEDS: Ibuprofen 400 MG TABLET PO ×2 (01:35→15:08)
[2023-08-06 03:14] VITALS: BP 117/62; PULSE 101; RESP 16; TEMP 35.9; O2SAT 97
[2023-08-06 07:13] VITALS: BP 107/63; PULSE 94; RESP 18; TEMP 36.5; O2SAT 98
--- NOTE | 2023-08-06 07:46 | P.PNIM_ITS ---
Subjective Subjective Date of Service: 08/06/23 Interval History: no complaints Physical Exam 2 Vital Signs: Vital Signs: Last Vital Signs Temp 97.7 F 08/06/23 07:13 Pulse 94 08/06/23 07:13 Resp 18 08/06/23 07:13 BP 107/63 08/06/23 07:13 Pulse Ox 98 08/06/23 07:13 O2 Del Method Room Air 08/06/23 07:13 O2 Flow Rate 98 08/05/23 16:00 BMI result Body Mass Index 20.5 Const: Other: Constitutional : Awake, tired and weak, not in distress Neck : Normal inspection, Supple Cardiovascular : RRR, no JVP, no lower extremity edema Respiratory : good bilateral air entry, no crackles Gastrointestinal: soft, lax, Normal bowel sounds, Non tender Skin : Warm, Dry, multiple skin scabs Neurological : Alert & oriented x3, No focal deficit Objective Data Active Medications Acetaminophen (Acetaminophen 325 Mg Tablet) 650 mg PO Q6H PRN PRN Reason: Pain, Mild (Pain Scale 1-3) Last Admin: 07/28/23 20:08 Dose: 650 mg Documented By: FUNMILAYO Docusate Sodium (Docusate Sodium 100 Mg Capsule) 100 mg PO DAILY PRN PRN Reason: Constipation Enoxaparin Sodium (Enoxaparin Sodium 40 Mg/0.4 Ml Syringe) 40 mg SUBCUT Q24H [facility] Last Admin: 08/05/23 10:59 Dose: 40 mg Documented By: DAVID Daptomycin 500 mg/ Sodium (Chloride) 60 mls @ 100 mls/hr IV Q24H [facility] Last Infusion: 08/05/23 11:49 Dose: Infused Documented By: DVAID Ibuprofen (Ibuprofen 400 Mg Tablet) 400 mg PO Q6H PRN PRN Reason: Pain, Moderate(Pain Scale 4-6) Last Admin: 08/06/23 01:35 Dose: 400 mg Documented By: LESLYE Methadone HCl (Methadone Hcl 20 Mg/2 Ml Oral.Conc) 75 mg PO DAILY [facility] Last Admin: 08/05/23 07:41 Dose: 75 mg Documented By: DAVID Ondansetron HCl (Ondansetron Hcl 4 Mg/2 Ml Vial) 4 mg IVPUSH Q8H PRN PRN Reason: Nausea and Vomiting Last Admin: 07/23/23 07:58 Dose: 4 mg Documented By: STUART Sodium Chloride (0.9 % Sodium Chloride Flush 3 Ml Syringe) 3 ml IVFLUSH QSHIFT [facility] Last Admin: 08/06/23 00:51 Dose: 3 ml Documented By: LESLYE Sodium Chloride (0.9 % Sodium Chloride Flush 10 Ml Syringe) 5 ml IVFLUSH QSHIFT [facility] Last Admin: 08/06/23 00:52 Dose: Not Given Documented By: LESLYE Non-Admin Reason: Duplicate Order Labs 07/27/23 05:30 08/02/23 05:29 Assessment and Plan (1) Bacteremia due to Staphylococcus aureus: Status: Acute (2) Opioid use disorder: Status: Acute Plan 38-year-old female with past medical history of IVDA presented with nausea vomiting, fevers Sepsis due to MRSA bacteremia in IVDU repeated Cx 07/29 negative Echo with no obvious vegetations negative hiv and has +ve Hepatitis C that will need OP treatment Continue Daptomycin s/p Cefazolin 5 days 4 weeks of Abx (End 08/26) has midline Opiate dependence Methadone Joints pain Likely related to infection Ibuprofen PRN DVT prophylaxis with Lovenox Full code Reason continue hospitalization: needs iv abx, awaiting placement Quality Stroke Does the patient have a stroke diagnosis?: No VTE Prior VTE?: No VTE Risk Level:: Medical - moderate - high VTE Device Contraindication: Treatment Not Indicated VTE Drug Contraindication: N/A - Med Ordered
[2023-08-06] MEDS: 0.9 % Sodium Chloride Flush 10 ML SYRINGE 5 ML IVFLUSH ×2 (09:08→15:02)
[2023-08-06] MEDS: Enoxaparin Sodium 40 MG/0.4 ML SYRINGE SUBCUT (09:08)
[2023-08-06] MEDS: methADONE HCl 20 MG/2 ML ORAL.CONC 75 MG PO (09:08)
[2023-08-06] MEDS: DAPTOmycin 500 MG in 0.9 % Sodium Chloride 50 ML 100 MG IV (15:02)
--- NOTE | 2023-08-06 15:47 | MHC.CM.PN ---
pt dc ready no beds avaliable
[2023-08-06 16:00] VITALS: BP 105/62; PULSE 100; RESP 18; TEMP 37.2; O2SAT 97
[2023-08-07] MEDS: 0.9 % Sodium Chloride Flush 10 ML SYRINGE 5 ML IVFLUSH ×3 (00:15→15:30)
[2023-08-07 04:00] VITALS: BP 108/65; PULSE 99; RESP 18; TEMP 36.5; O2SAT 98
[2023-08-07 07:16] VITALS: BP 100/59; PULSE 108; RESP 18; TEMP 36.8; O2SAT 98
--- NOTE | 2023-08-07 09:06 | HO.PM.IMPN ---
Subjective Subjective Date of Service: 08/07/23 Interval History: no complaints Physical Exam Vital Signs: Vital Signs: Last Vital Signs Temp 98.2 F 08/07/23 07:16 Pulse 108 H 08/07/23 07:16 Resp 18 08/07/23 07:16 BP 100/59 L 08/07/23 07:16 Pulse Ox 98 08/07/23 07:16 O2 Del Method Room Air 08/07/23 07:16 O2 Flow Rate 98 08/05/23 16:00 BMI result Body Mass Index 20.5 Const: Other: Constitutional : Awake, tired and weak, not in distress Neck : Normal inspection, Supple Cardiovascular : RRR, no JVP, no lower extremity edema Respiratory : good bilateral air entry, no crackles Gastrointestinal: soft, lax, Normal bowel sounds, Non tender Skin : Warm, Dry, multiple skin scabs Neurological : Alert & oriented x3, No focal deficit Objective Data Active Medications Acetaminophen (Acetaminophen 325 Mg Tablet) 650 mg PO Q6H PRN PRN Reason: Pain, Mild (Pain Scale 1-3) Last Admin: 07/28/23 20:08 Dose: 650 mg Documented By: FUNMILAYO Docusate Sodium (Docusate Sodium 100 Mg Capsule) 100 mg PO DAILY PRN PRN Reason: Constipation Enoxaparin Sodium (Enoxaparin Sodium 40 Mg/0.4 Ml Syringe) 40 mg SUBCUT Q24H [facility] Last Admin: 08/06/23 09:08 Dose: 40 mg Documented By: ANTOLIN Daptomycin 500 mg/ Sodium (Chloride) 60 mls @ 100 mls/hr IV Q24H [facility] Stop: 08/26/23 14:35 Last Infusion: 08/06/23 15:41 Dose: Infused Documented By: ROSITA Ibuprofen (Ibuprofen 400 Mg Tablet) 400 mg PO Q6H PRN PRN Reason: Pain, Moderate(Pain Scale 4-6) Last Admin: 08/06/23 15:08 Dose: 400 mg Documented By: COTEMA Methadone HCl (Methadone Hcl 20 Mg/2 Ml Oral.Conc) 75 mg PO DAILY [facility] Last Admin: 08/06/23 09:08 Dose: 75 mg Documented By: ANTOLIN Ondansetron HCl (Ondansetron Hcl 4 Mg/2 Ml Vial) 4 mg IVPUSH Q8H PRN PRN Reason: Nausea and Vomiting Last Admin: 07/23/23 07:58 Dose: 4 mg Documented By: STUART Sodium Chloride (0.9 % Sodium Chloride Flush 3 Ml Syringe) 3 ml IVFLUSH QSMDFT [facility] Last Admin: 08/07/23 00:16 Dose: Not Given Documented By: LESLYE Non-Admin Reason: Duplicate Order Sodium Chloride (0.9 % Sodium Chloride Flush 10 Ml Syringe) 5 ml IVFLUSH QSHIFT [facility] Last Admin: 08/07/23 00:15 Dose: 5 ml Documented By: LESLYE Labs 07/27/23 05:30 08/02/23 05:29 Assessment and Plan (1) Bacteremia due to Staphylococcus aureus: Status: Acute (2) Opioid use disorder: Status: Acute Plan 38-year-old female with past medical history of IVDA presented with nausea vomiting, fevers Sepsis due to MRSA bacteremia in IVDU repeated Cx 07/29 negative Echo with no obvious vegetations negative hiv and has +ve Hepatitis C that will need OP treatment Continue Daptomycin s/p Cefazolin 5 days weekly cpk 4 weeks of Abx (End 08/26) has midline Opiate dependence Methadone Joints pain Likely related to infection Ibuprofen PRN DVT prophylaxis with Lovenox Full code Reason continue hospitalization: needs iv abx, awaiting placement Quality Stroke Does the patient have a stroke diagnosis?: No VTE Prior VTE?: No VTE Risk Level:: Medical - moderate - high VTE Device Contraindication: Treatment Not Indicated VTE Drug Contraindication: N/A - Med Ordered
[2023-08-07] MEDS: methADONE HCl 20 MG/2 ML ORAL.CONC 75 MG PO (09:55)
[2023-08-07] MEDS: 0.9 % Sodium Chloride Flush 3 ML SYRINGE IVFLUSH ×2 (10:25→15:30)
--- NOTE | 2023-08-07 12:56 | P.DS_ITS ---
DS: Providers Provider Date of Service: 08/07/23 Date of admission: 07/23/23 01:47 Primary care physician: Unknown Physician Consults: 07/23/23 01:46 Addiction Medicine Routine Consulting Provider: Addiction Covering Reason for consultation: opioids, cocain addiction Has provider been notified: No 07/24/23 08:56 Consult to Infectious Diseases [place]ine [place] [facility] [place] Reason for consultation: ivda, bacteremia 07/27/23 11:05 Consult to Infectious Diseases Stat Consulting [place] [facility] [place] Reason for consultation: [place] ORDER Has provider been notified: Yes DS: Diagnosis Discharge Diagnosis (1) Bacteremia due to Staphylococcus aureus: Status: Acute (2) Opioid use disorder: Status: Acute DS: Summary Hospital Course Hospital Course: from initial hpi: 38-year-old female past medical history of IV drug use comes into the hospital with complaints of nausea, vomiting, diarrhea, and feeling sick for the past week. Patient reports that her symptoms worsened, now she is not tolerating any p.o. intake, feels generally unwell. She injects on her arms, feels feverish, has some chills Reports no chest pain, no shortness of breath, no abdominal pain, no urinary symptoms and no lower extremity edema On arrival to the ED patient febrile with fever of 101.9, heart rate of 106, blood pressure stable Labs are significant for WBC count of 18.8, ESR 34, sodium of 134, C-reactive protein of 22.93, UA negative for acute infection, urine drug screen positive for opioids, fentanyl, cocaine and marijuana COVID and influenza as well as RSV negative Given patient's highest risk for bacteremia patient will be admitted for further management and started on IV antibiotics hospital course: Patient was admitted for sepsis due to MRSA bacteremia due to IV drug use. Echocardiogram was unremarkable. Her repeat culture from 07/29/2023 was negative. She was recommended to have 4 weeks of IV daptomycin to complete 08/26/23. [facility], she is expected require less than 30 days. For opiate dependence she was treated with methadone. Time Attestation Discharge coordination time: Greater than 30 minutes Quality: Safe Use of Opioids Does Pt have an Active Cancer Diagnosis on the Problem List?: No Quality: Stroke Does the patient have a stroke diagnosis?: No Physical Exam Vital Signs: Vital Signs: Last Vital Signs Temp 98.2 F 08/07/23 07:16 Pulse 108 H 08/07/23 07:16 Resp 18 08/07/23 07:16 BP 100/59 L 08/07/23 07:16 Pulse Ox 98 08/07/23 07:16 O2 Del Method Room Air 08/07/23 07:16 O2 Flow Rate 98 08/05/23 16:00 BMI result Body Mass Index 20.5 General: AO X 3, no acute distress Resp: CTA bilateral, no accessory muscles used CVS: S1,S2,RRR GI: soft, non tender, non distended Neuro: motor grossly intact, alert Psych: appropriate affect, appropriate insight Discharge Plan Discharge Anticipated Discharge Date/Time: 08/07/23 12:55 Patient Disposition: er SNF Discharge Diagnosis: mrsa bacteremia Referrals: donald barrett [Other] - 1 Week Physician,Unknown J [Primary Care Provider] - 1 Week Discharge Medications: New methadone [Methadose] 10 mg/mL Concentrate 75 mg PO DAILY Qty: 0 0RF Rx Instructions: Partial Fill upon patient request. daptomycin 350 mg Recon Soln 500 mg IV Q24H 20 Days Qty: 0 0RF Discharge Orders: Discharge Order (Routine); Ordered 08/07/23 Ordered By: Dioni Estrada Diet: Advance to usual diet Activity on Discharge: As tolerated Stand Alone Forms: Patient Portal Discharge page Care Plan Goals: recovery Health Concerns: mrsa bacteremia Plan of Treatment: dapto until 08/16/23, weekly cpk Assessment: see above
--- NOTE | 2023-08-07 13:09 | MHC.CM.PN ---
Addendum entered by Kelly Phelan 08/07/23 14:18: Patient scheduled for PICC insertion 2:30pm today. Original Note: Vita Granados Has insurance authorization. MD and RN notified. Called IR VM left notified:PT needs PICC for Dapto infusion at SNF. Insurance auth received. Pt has a bed today for discharge today. Notified Director of a discharge for today PICC pending. She stated that she would contact IR configuration management manager. DP SNF for IV ABX via BLS, pending PICC insertion.
[2023-08-07] MEDS: Ibuprofen 400 MG TABLET PO (15:29)
[2023-08-07] MEDS: DAPTOmycin 500 MG in 0.9 % Sodium Chloride 50 ML 100 MG IV (15:30)
[2023-08-07] MEDS: Lidocaine HCl 1 % MPF 30 ML VIAL 10 ML SUBCUT (15:46)
[2023-08-07 16:00] VITALS: BP 115/65; PULSE 112; RESP 18; TEMP 36.9; O2SAT 97
--- NOTE | 2023-08-07 16:03 | MHC.RECOVRN ---
T/W went to check in on pt. Pt was sitting up in bed eating ice cream. She had just received her PICC line and was preparing to D/C to SNF in [place]. Pt very nervous about this transfer as it is so far away from home. We discussed ways she can advocate for herself once at facility. Pt asked for and received contact information for [facility] and will call with any questions/concerns.
== END 2023-08-07 18:39 | disposition skilled nursing facility (03) | DRG 872 ==
LOC: HO.ED 21:00 → HO.EDOVER 07-23 01:52 → HO.S3 07-23 09:23
PROVIDERS: Physician Assistant; Radiology Vascular & Interventional Radiology; Student in an Organized Health Care Education/Training Program; Admitting Provider Internal Medicine; Emergency Provider Internal Medicine; Visit Provider Internal Medicine
PROC: 02HV33Z Insertion of Infusion Device into Superior Vena Cava, Percutaneous Approach (ICD-10-PCS; principal; 2023-08-07 14:30)
DX: A41.02 Sepsis due to Methicillin resistant Staphylococcus aureus (principal); F11.23 Opioid dependence with withdrawal; F17.210 Nicotine dependence, cigarettes, uncomplicated; B19.20 Unspecified viral hepatitis C without hepatic coma; F19.10 Other psychoactive substance abuse, uncomplicated; Z71.6 Tobacco abuse counseling; Z20.822 Contact with and (suspected) exposure to COVID-19
CPT/HCPCS: 0241U; 36410; 36415; 36573; 71046; 74177; 80048; 80053; 80202; 80307; 81001; 81025; 82565; 83605; 83690; 84484; 84702; 85025; 85027; 85652; 86140; 86704; 86706; 86803; 87040; 87077; 87147; 87186; 87205; 87340; 87389; 87493; 93005; 93306; 99285; C1751; J0131; J0690; J0696; J0878; J1650; J2405; J2543; J3370; J3371; Q9967

== ENCOUNTER 2023-07-23 01:47 | Outpatient (BNV) | payer MEDICARE, SELFPAY | END 2023-07-26 19:38 | PROVIDERS: Admitting Provider Internal Medicine; Emergency Provider Internal Medicine; Visit Provider Internal Medicine Cardiovascular Disease | DX: R00.0 Tachycardia, unspecified (principal); R94.31 Abnormal electrocardiogram [ECG] [EKG] | CPT/HCPCS: 93010 ==

== ENCOUNTER 2023-07-23 01:47 | Outpatient (BNV) | payer MEDICARE, MEDICAID, SELFPAY | END 2023-07-23 07:00 | PROVIDERS: Admitting Provider Internal Medicine; Emergency Provider Internal Medicine; Visit Provider Internal Medicine Cardiovascular Disease | DX: I34.81 Nonrheumatic mitral (valve) annulus calcification (principal) | CPT/HCPCS: 93306 ==

== ENCOUNTER 2023-07-23 01:47 | Outpatient (BNV) | payer MEDICARE, SELFPAY | END 2023-08-07 14:00 | PROVIDERS: Admitting Provider Internal Medicine; Emergency Provider Internal Medicine; Visit Provider Radiology Vascular & Interventional Radiology | DX: A41.9 Sepsis, unspecified organism (principal); R78.81 Bacteremia | CPT/HCPCS: 36573 ==

== ENCOUNTER → 2023-07-23 01:47 | Outpatient (BNV) | payer MEDICARE, SELFPAY | PROVIDERS: Admitting Provider Internal Medicine; Emergency Provider Internal Medicine; Visit Provider Internal Medicine | DX: F19.90 Other psychoactive substance use, unspecified, uncomplicated (principal); A41.9 Sepsis, unspecified organism | CPT/HCPCS: 99222 ==

== ENCOUNTER → 2023-07-23 01:47 | Outpatient (BNV) | payer MEDICARE, MEDICAID, SELFPAY | PROVIDERS: Admitting Provider Internal Medicine; Emergency Provider Internal Medicine; Visit Provider Internal Medicine | DX: R78.81 Bacteremia (principal); B95.61 Methicillin susceptible Staphylococcus aureus infection as the cause of diseases classified elsewhere; F11.90 Opioid use, unspecified, uncomplicated | CPT/HCPCS: 99222; 99231; 99232; 99233; 99239; 99499 ==

== ENCOUNTER → 2023-07-23 01:47 | Outpatient (BNV) | payer OTHER, SELFPAY | PROVIDERS: Admitting Provider Internal Medicine; Emergency Provider Internal Medicine; Visit Provider Nurse Practitioner Psychiatric/Mental Health | DX: F11.90 Opioid use, unspecified, uncomplicated (principal) | CPT/HCPCS: 99221; 99231; 99232; 99499 ==

== ENCOUNTER 2023-09-06 11:59 | Emergency (ER) | payer MEDICARE, MEDICAID, SELFPAY ==
--- NOTE | ~2023-09-06 | CT_ITS ---
EXAMINATION: CT LUMBAR SPINE CLINICAL INFORMATION: Midline tenderness. Recent staph bacteremia. COMPARISON: CT lumbar spine dated 07/22/2023 TECHNIQUE: Multidetector volumetric imaging was obtained through the lumbar spine following intravenous administration of 85 mL Omnipaque 350. Multiplanar reformatted images in coronal and sagittal orientations were submitted. This CT examination was performed using dose optimization techniques as appropriate, variously including the following: *Automated exposure control *Adjustment of mA and/or kV according to patient size (this includes techniques or standardized protocols for targeted exams where dose is matched to indication/reason for exam; i.e. extremities or head) *Use of iterative reconstruction technique DLP: 319 mGy-cm FINDINGS: Again seen is left convex lumbar scoliosis centered at the L3 vertebral body. No spondylolisthesis. Vertebral body heights are normal. No acute fractures. As seen on the prior studies, there is severe loss of intervertebral disc height at the L3-L4 level, right side greater than left, with cortical irregularity and sclerosis, consistent with marked degenerative disc disease. No surrounding soft tissue swelling or edema signal is identified in this region. No appreciable epidural abnormalities. More mild degenerative disc disease is present at the levels in the lumbar spine. There is moderate to severe facet arthropathy on the right at L3-L4 and more mild facet arthropathy at other levels. T12-L1: No central canal or neural foraminal encroachment. L1-L2: No central canal and neural foraminal encroachment L2-L3: Generalized disc bulge produces mild central canal narrowing, indenting the ventral thecal sac. Mild osteoarthropathy. No neural foraminal encroachment. L3-L4: Marked degenerative disc disease in the above. No appreciable central canal stenosis. Loss of vertebral disc height and disc osteophytes produce mild right neural foraminal encroachment. L4-L5: Mild degenerative disc disease. Mild generalized disc bulge produces minimal central canal narrowing, indenting the ventral thecal sac. There is mild to moderate left neural foraminal encroachment due to a disc osteophyte complex and facet osteophytes. L5-S1: No central canal or neural foraminal encroachment. Paraspinal soft tissues tissues are unremarkable. No acute intra-abdominal findings. CT/CT lumbar spine w IV con IMPRESSION: 1. Marked degenerative disc disease at L3-L4 with more mild degenerative disc disease at other levels in the lumbar spine. No acute abnormalities are identified in this region. 2. Mild to moderate neural foraminal encroachment on the left at L4-L5 due to a disc osteophyte complex and facet osteophytes. 3. Mild central canal narrowing at L2-L3 due to a generalized disc bulge.
--- NOTE | ~2023-09-06 | XR_ITS ---
EXAMINATION: XR LUMBOSACRAL SPINE CLINICAL INFORMATION: Fall, midline tenderness. COMPARISON: None available. TECHNIQUE: Three views of the lumbosacral spine. FINDINGS: There is normal lumbar lordosis. The vertebral heights, alignment are normal. There is loss of L3-L4 and L4-L5 disc heights. There is mild levoscoliosis lower lumbar spine. No visible acute fracture or dislocation seen. The paravertebral soft tissues are normal. XR/XR lumbar spine 2-3V IMPRESSION: Degenerative disc changes L3-L4 and L4-L5 disc levels. No visible acute fracture or dislocation seen.
[2023-09-06 12:07] VITALS: BP 110/00; PULSE 76; O2SAT 99
[2023-09-06 12:57] VITALS: BP 119/74; PULSE 66; RESP 16; TEMP 36.6; O2SAT 98; BMI 23.4
--- NOTE | 2023-09-06 12:57 | ED.BACK ---
HPI - Back Pain/Injury General Chief Complaint: General Medical Stated Complaint: SCIATICA PAIN PER EMS Time Seen by Provider: 09/06/23 17:32 Source: patient, EMS and RN notes reviewed Mode of arrival: EMS Limitations: no limitations History of Present Illness HPI Narrative: Patient is a 38-year-old female with history of opioid use disorder, recent admission for staph bacteremia presenting to the emergency department with complaint of low back pain for weeks. States she fell at home last night due to right leg weakness. Denies head strike or loss of consciousness. States she fell first onto edge of bed then onto floor on her right side. States her back pain has been ongoing for several months. Pain radiates down both legs but right is worse than left. Complains of numbness/tingling to bilateral feet, states feet only, does not radiate down legs. States has been having difficulty ambulating due to pain and weakness. Denies saddle anesthesia, or bowel or bladder incontinence. Following recent admission for bacteremia patient was discharged to short term rehab. States that she was previously on 75 mg of methadone daily but has not had methadone since being discharged from short-term rehab facility. Reports she last injected 2 bags of heroin 2 days ago. Requesting assistance getting back into methadone clinic. Also complains of diarrhea and nausea, denies vomiting. Denies fevers but complains of sweats. Denies abdominal pain. MD elicited complaint: back pain Pertinent past history: prior back pain and recent trauma Onset (ago): month(s) Timing: progressively worsening Severity: severe Pain scale (0-10): 10 Similar Symptoms Previously: Yes Quality: aching and tingling Location: lumbar spine, right lower back and left lower back Radiation: left upper leg and right upper leg Exacerbating factors: movement and walking Relieving factors: none Context: fall Associated symptoms: weakness, numbness (feet) and difficulty walking Treatments prior to arrival: other Work related injury: No Related Data Home Medications Medication Instructions Recorded Confirmed No Known Home Meds 09/07/23 09/07/23 Allergies Allergy/AdvReac Type Severity Reaction Status Date / Time No Known Allergies Allergy Verified 07/22/23 22:50 [No Known Allergies*] Review of Systems Review of Systems: As per HPI. Yes all other systems are reviewed and are negative PMFSH Past Medical History Onset Date is defined in the Problem List Problems that require an onset date and time if occurred within 24 hrs of arrival to the ED Aortic Dissection and Rupture; Neurologic impairment; Cardiopulmonary Arrest; Endotracheal Intubation; Insertion or Replacement of Mechanical Circulatory Assist Device Medical History Polysubstance abuse IV drug user Social History Social History Household Members: None Housing: Homeless Do you presently have visiting nurse or other home services: No Alcohol intake: current Patient Tobacco Use Status: Current everyday Tobacco user Tobacco use type: Cigarette Smoked in Last 30 Days: Yes Use of substances other than those prescribed or required for medical reasons: Yes Substance Use Type: Heroin Substance Use Frequency: Daily Advance Directives: No Advance Directives Information Provided: No Healthcare Proxy: No Guardian: No Patient : No service: No Physical Exam Vital Signs: Vital Signs: Last Vital Signs Temp 99.1 F 09/07/23 08:26 Pulse 46 L 09/07/23 08:26 Resp 18 09/07/23 17:32 BP 121/79 09/07/23 08:26 Pulse Ox 99 09/07/23 08:26 O2 Del Method Room Air 09/07/23 08:26 BMI result Body Mass Index 23.4 Vital signs have been reviewed and appear to be correct. Blood pressure normal. Heart rate normal. Respiratory rate normal. Temperature normal. Oxygen saturation normal. Const: General: no acute distress, alert, awake and anxious Orientation/consciousness: patient oriented x3 Limitations: no limitations HEENT: Head: Yes normocephalic and Yes atraumatic Ears: hearing grossly normal bilaterally, TM's normal bilaterally and EAC's normal General nose exam: Normal external nose present, Normal nasal mucous membranes and turbinates present and Normal septum present Face and sinus: Yes normal facial exam Mouth: Normal oral and palatal mucosa present Throat: Yes posterior oropharynx normal and Yes uvula midline Eyes: Pupils: Equal, round and reactive pupils present Neck: Neck: Yes normal visual inspection, Yes full ROM, Yes no lymphadenopathy and Yes no meningeal signs Chest: Chest palpation & inspection: normal inspection of the chest and normal palpation of entire chest wall Resp: Effort & Inspection: normal respiratory effort Auscultation: clear to auscultation bilaterally Cardio: Rate: regular rate Rhythm: regular rhythm Heart sounds: S1 normal heart sound present and S2 normal heart sound present GI: Inspection: Yes normal to inspection Palpation (GI): Soft to palpation and nontender Auscultation: normoactive bowel sounds : General: Yes no CVA tenderness Back/Spine/Pelvis: Back: no CVA tenderness Cervical Spine: normal cervical lordosis, cervical ROM normal, No Cervical spine tenderness and No step off deformity Thoracic/Lumbar Spine: thoracic and lumbar spine normal to inspection, thoraco-lumbar ROM normal, straight leg raise negative bilaterally, No mass, pain with thoraco-lumbar ROM, paraspinal muscle tenderness bilaterally in the upper lumbar, No thoracic spinal tenderness and lumbar spinal tenderness at L1 and at L2 Pelvis: pain with anterior-posterior compression and pain with lateral compression Sacroiliac joints: bilaterally nontender Skin: General skin exam: elasticity normal, turgor normal and other (diffuse scabs to bilateral upper extremities) Neuro: General: patient oriented x3, tone normal, moves all extremities, Normal light touch and pain sensation, no meningeal signs, no focal motor deficits, CN's II-XI intact bilaterally and deep tendon reflexes 2+ bilaterally Cranial nerves: Yes Equal, round and reactive pupils present Motor exam (neuro): Abnormal motor strength present left lower extremity flexion 4 / 5, extension 4 / 5, ABduction 4 / 5, ADduction 4 / 5 and opposition 4 / 5, right lower extremity flexion 3 / 5, extension 3 / 5, ABduction, ADduction 3 / 5 and opposition 3 / 5 Sensory Exam: Normal double simultaneous stimulation for sensation Extrem: General: Yes full ROM, Yes capillary refill normal and Yes normal exam except as noted Right lower extremity: foot Details: edema Location: of the dorsal foot (non pitting) and vascular exam Details: dorsalis pedis pulse present and posterior tibial pulse present Left lower extremity: foot Details: edema Location: of the dorsal foot (non pitting) and vascular exam Details: dorsalis pedis pulse present and posterior tibial pulse present Course Course Course Narrative: Back pain with difficulty in ambulation. 10/10 pain starting in lower back radiating into buttock and into the right foot. Hx carpal tunnel with chronic numbness in hands. Denies saddle anesthesia or new numbness, urinary or fecal incontinence. States she fell this morning and last night when her right leg gave out. Reports that she hit her head yesterday when she fell but denies LOC. Homeless. Was staying with a friend but stayed at the [facility] last night. Denies SI/HI IVDU w/heroine. Has not used in 2 days, requests detox. Current nausea without vomiting. Needs to get to a methadone clinic to restart methadone dosing RME: A&O x 4, BROOKS x 4, Able to stand but appears unsteady, LS CTA, HR RRR RME completed by Rickie Reevaluation(s) Reevaluation #1: quality control technician reporting that they are not comfortable using U/S guided IV placed in R arm as patient is reporting pain. Additional IV placed by Dr. Maier. Time: 01:34 Reevaluation #2: Dr. Barriga Note: Patient was seen by the care team and they plan on getting the patient into a dual diagnosis program. Care team was concerned that the patient may be withdrawing from methadone. Patient states she was taking methadone 75 mg daily while she was in a treatment program and last received her dose on 08/28/2023. Went she was discharged, she was not referred to a methadone program. She states she has been using 15 bags of heroin intravenously per day last used 2 days prior. The patient did receive 40 mg of methadone earlier today. According to ED Behavioral Unit nurse, the patient's COWS score is 10 and the patient feels like she still withdrawing from opiates. I did discuss this with our ED pharmacist, Elva who recommends methadone 10 mg orally now and if needed we can repeat another 10 mg orally. The day team will need to determine the appropriate dose of methadone for this patient. Time: 20:39 Reevaluation #3: Dr. Barriga Note: Patient is still experiencing withdrawal symptoms therefore I ordered another 10 mg of methadone orally. Patient's methadone dose tomorrow morning will probably need to be increased in order to prevent withdrawal.. Time: 22:12 Additional Reevaluation(s): accepted to [facility] inpatient care today at 10am observation will end at that time note placed [place] 537am 09/08/23 Medications Administered Discontinued Medications Generic Name Dose Route Start Last Admin Trade Name Freq PRN Reason Stop Dose Admin Sodium Chloride 1,000 mls @ 999 mls/hr 09/07/23 02:00 09/07/23 02:34 Ns IV 09/07/23 03:00 999 mls/hr .Q1H1M CECY Administration Iohexol 85 ml 09/07/23 02:00 09/07/23 02:00 Iohexol 350 Mg/Ml 100 Ml Infus..Btl IV 09/07/23 02:01 85 ml ONCE ONE Administration Ketorolac Tromethamine 15 mg 09/07/23 01:47 09/07/23 02:34 Ketorolac Tromethamine 15 Mg/Ml Vial IVPUSH 09/07/23 01:48 15 mg ONCE ONE Administration Methadone HCl 30 mg 09/07/23 10:51 09/07/23 11:24 Methadone Hcl 20 Mg/2 Ml Oral.Conc PO 09/07/23 10:52 30 mg ONCE ONE Administration Methadone HCl 10 mg 09/07/23 16:40 09/07/23 17:06 Methadone Hcl 20 Mg/2 Ml Oral.Conc PO 09/07/23 16:41 10 mg ONCE ONE Administration Methadone HCl 10 mg 09/07/23 20:45 09/07/23 20:54 Methadone Hcl 20 Mg/2 Ml Oral.Conc PO 09/07/23 20:46 10 mg ONCE ONE Administration Methadone HCl 10 mg 09/07/23 22:11 09/07/23 22:35 Methadone Hcl 20 Mg/2 Ml Oral.Conc PO 09/07/23 22:12 10 mg ONCE ONE Administration Medical Decision Making Medical Decision Making MDM Narrative: Patient is a 38-year-old female with history of opioid use disorder, recent admission for staph bacteremia presenting to the emergency department with complaint of low back pain for weeks. On exam patient is awake, A+Ox3, VS WNL, afebrile, normal neurological exam without focal deficits, physical exam findings as above. Given reported symptoms and physical exam findings, initial differential includes lumbar vertebral fracture, lumbar strain, lumbar radiculopathy, acute on chronic back pain. Unlikely cauda equina, cord compression. Labs notable for mild leukopenia, no left shift, no significant electrolyte abnormalities. X-ray notable for degenerative disc changes at L3/4 and L4/5, no acute fractures. My interpretation is in agreement with the radiologist's interpretation. Given patient's IV drug use and recent admission for strep bacteremia, will obtain lumbar CT to assess for spinal epidural abscess. Patient signed out to Dr. Reinoso pending CT results and CARE team evaluation. -I received sign-out from my colleague ROSANNA Vizcarra -CT scan of the lumbar spine does not show any acute abnormality -patient will remain on physician observation until seen tomorrow by the care team or cost recovery technician Differential Diagnosis Differential Diagnoses: The differential diagnosis associated with the presentation includes As per [facility] Admission/Observation Consideration of admission/observation: Escalation of care including admission/observation considered Lab Data [facility] Lab Attestation statement: I reviewed the patient's lab results. As per [facility] 09/06/23 17:38 09/06/23 17:38 Labs: Lab Results 09/06/23 09/07/23 09/07/23 Range/Units 17:38 02:53 10:06 WBC 4.6 L (4.8-10.8) X10*3/uL RBC 4.22 (4.20-5.50) X10*6/uL Hgb 12.1 (12.0-16.0) g/dl Hct 37.1 (37.0-47.0) % MCV 87.9 (80.0-98.0) fL MCH 28.7 (27.0-33.0) pg MCHC 32.6 (31.0-35.0) g/dl RDW 14.1 (11.0-16.0) % Plt Count 413 H D (160-400) X10*3/uL MPV 8.8 L (9.4-12.3) fL Immature Gran % (Auto) 0.4 (0.0-0.4) % Neut % (Auto) 65.7 (45-73) % Lymph % (Auto) 24.5 (20-40) % Bennett % (Auto) 6.6 (2-11) % Eos % (Auto) 1.5 (0-4) % Baso % (Auto) 1.3 (0-2) % Lymph # (Auto) 1.1 L (1.2-4.9) X10*3/uL Bennett # (Auto) 0.3 (0.1-1.2) X10*3/uL Eos # (Auto) 0.1 (0.0-0.4) X10*3/uL Baso # (Auto) 0.1 (0.0-0.2) X10*3/uL Abs Immat Gran (auto) 0.02 (0.00-0.03) X10*3/uL Absolute Neuts (auto) 3.0 (2.0-8.3) x10*3/uL Absolute Nucleated RBC 0.000 (0.0-0.012) X10*3/uL Nucleated RBC % (auto) 0.0 (0.0-0.2) /100WBC Sodium 141 (135-145) mmol/L Potassium 3.4 (3.3-5.1) mmol/L Chloride 107 (96-108) mmol/L Carbon Dioxide 27 (22-29) mmol/L Anion Gap 10 L (12-20) BUN 11 (9-16) mg/dL Creatinine 0.73 (0.5-1.4) mg/dL Estim Creat Clear Calc 104.3 Estimated GFR > 60 Random Glucose 100 (60-115) mg/dL Calcium 9.2 (8.4-10.2) mg/dL Total Bilirubin 0.3 (0.0-1.0) mg/dL AST 19 (5-31) U/L ALT 15 (0-31) U/L Alkaline Phosphatase 91 (39-117) U/L Total Protein 7.6 (6.5-8.0) g/dL Albumin 3.6 (3.5-5.0) g/dL Beta HCG, Quant < 2 mIU/mL Urine Color Yellow Urine Appearance Cloudy Urine pH 7.5 (5.0-9.0) Ur Specific Spencer >= 1.030 H (1.005-1.025) Urine Protein Trace (Neg-Trace) mg/dL Urine Glucose (UA) Negative (Negative) mg/dL Urine Ketones Negative (Negative) mg/dL Urine Blood Negative (Negative) Urine Nitrite Negative (Negative) Ur Leukocyte Esterase Small (1+) H (Negative) Urine RBC 0-2 (0-2) /HPF Urine WBC 6-10 H (0-5) /HPF Ur Squamous Epith Cells >20 (0-2) /HPF Urine Bacteria 1+ (None Seen) Hyaline Casts 0-2 (0-2) /LPF Urine Opiates Screen POSITIVE H (Not Detect) Urine Fentanyl Screen POSITIVE H (Not Detect) Ur Barbiturates Screen Not Detected (Not Detect) Ur Phencyclidine Scrn Not Detected (Not Detect) Ur Amphetamines Screen Not Detected (Not Detect) U Benzodiazepines Scrn Not Detected (Not Detect) Urine Cocaine Screen POSITIVE H (Not Detect) U Marijuana (THC) Screen Not Detected (Not Detect) COVID-19 (BELEN) Negative (Negative) COVID-19 Clin Com See Note Independent Interpretation I performed an independent interpretation of an: Plain X-Ray Interpretation: Degenerative disc disease at L3-4 and L4-5 on lumbar x-ray, no acute fracture Radiology Impression Discussion of test interpretation with radiology: I have reviewed the radiologist's reading. Radiologist Impression: XR/XR lumbar spine 2-3V IMPRESSION: Degenerative disc changes L3-L4 and L4-L5 disc levels. No visible acute fracture or dislocation seen. External Record Review External record reviewed: Inpatient record, Office record and Outpatient record Prescription Management I considered prescription management with: Pain Medication Procedures EJ/Peripheral Line Arm R: Time Out Performed: Yes Skin Cleansed in Sterile Fashion: Yes Size (gauge): 20 IV Secured and Dressing Applied: Yes Patient Tolerated Procedure: well and no complications Additional Comments: ultrasound guided, placed by Dr. Maier Arm L: Time Out Performed: Yes Skin Cleansed in Sterile Fashion: Yes Size (gauge): 20 IV Secured and Dressing Applied: Yes Patient Tolerated Procedure: well and no complications Additional Comments: Placed under ultrasound guidance by Dr. Maier. Discharge Plan Discharge Clinical Impression: Lumbar back pain, Opioid use disorder Patient Disposition: Xfer Psychiatric Hosp Transfer Details: [facility] Prescriptions: No Action No Known Home Meds
[2023-09-06 17:38] VITALS: BP 106/65; PULSE 81; RESP 16; TEMP 36.8; O2SAT 98
[2023-09-06 17:43] LABS: MANUAL DIFF FLAG NO
--- NOTE | 2023-09-06 17:43 | PC.NURSE ---
pt resting quietly on stretcher. pt reporting 10/10 pain. rr even/unlabored. call lopez within reach. pt appears in no apparent distress. plan of care ongoing.
[2023-09-06 18:01] LABS: Alanine Aminotransferase 15 U/L (0-31); Albumin Level 3.6 g/dL (3.5-5.0); Alkaline Phosphatase 91 U/L (39-117); Anion Gap 10 (12-20); Aspartate Amino Transferase 19 U/L (5-31); Bilirubin Total 0.3 mg/dL (0.0-1.0); Blood Urea Nitrogen 11 mg/dL (9-16); Calcium 9.2 mg/dL (8.4-10.2); Carbon Dioxide 27 mmol/L (22-29); Chloride 107 mmol/L (96-108); Creatinine Clr Calc Pharmacy 104.3; Estimated Glomerular Filt Rate > 60; Glucose Random 100 mg/dL (60-115); Potassium 3.4 mmol/L (3.3-5.1); Sodium 141 mmol/L (135-145); Total Protein 7.6 g/dL (6.5-8.0)
[2023-09-06 18:09] LABS: Basophils Absolute Auto 0.1 X10*3/uL (0.0-0.2); Basophils Percent Auto 1.3 % (0-2); Eosinophils Absolute Auto 0.1 X10*3/uL (0.0-0.4); Eosinophils Percent Auto 1.5 % (0-4); Hematocrit 37.1 % (37.0-47.0); Hemoglobin 12.1 g/dl (12.0-16.0); Imm Gran Abs Auto 0.02 X10*3/uL (0.00-0.03); Imm Gran Pct Auto 0.4 % (0.0-0.4); Lymphocytes Absolute Auto 1.1 X10*3/uL (1.2-4.9); Lymphocytes Percent Auto 24.5 % (20-40); Mean Corpuscular HGB Conc 32.6 g/dl (31.0-35.0); Mean Corpuscular Hemoglobin 28.7 pg (27.0-33.0); Mean Corpuscular Volume 87.9 fL (80.0-98.0); Mean Platelet Volume 8.8 fL (9.4-12.3); Monocytes Absolute Auto 0.3 X10*3/uL (0.1-1.2); Monocytes Percent Auto 6.6 % (2-11); Neutrophils Percent Auto 65.7 % (45-73); Platelet Count 413 X10*3/uL (160-400); Red Blood Count 4.22 X10*6/uL (4.20-5.50); Red Cell Distribution Width 14.1 % (11.0-16.0); White Blood Count 4.6 X10*3/uL (4.8-10.8)
--- NOTE | 2023-09-06 18:39 | PC.NURSE ---
pt with x-ray.
[2023-09-06 18:40] LABS: HCG Quantitative < 2 mIU/mL
[2023-09-06 20:42] VITALS: BP 111/68; PULSE 85; RESP 18; TEMP 36.7; O2SAT 98
--- NOTE | 2023-09-06 22:43 | PC.NURSE ---
pt resting quietly on stretcher, in and out of sleep. pt offers no complaints martinez. awaiting CT scan. call lopez within pt reach. plan of care ongoing.
[2023-09-06 23:55] VITALS: BP 117/77; PULSE 82; RESP 14; TEMP 36.6; O2SAT 97
--- NOTE | 2023-09-07 01:20 | PC.NURSE ---
Attempted x2 for IV access. Requested assistance of storage battery charger who also failed in getting access. Provider attempted as well. Ultrasound guided IV accessed in right upper arm by Dr Maier. Radiology techs noted pt report that she had a lumpectomy on right side and pt was not aware whether or not she had lymph nodes removed. Dr. Maier approved technician's helper go complete scan. voice and data technician then noted concern for possible infiltration, and pt complaints of pain. Lines flushed by this RN, and Kianna Riley NP. Kianna felt that it was not infiltrated as over 40ml pushed with no bubbling or complaint of pain from pt. PT off to CT at this time.
[2023-09-07] MEDS: iohexoL 350 MG/ML 100 ML INFUS..BTL 85 ML IV (02:00)
[2023-09-07] MEDS: Ketorolac Tromethamine 15 MG/ML VIAL IVPUSH (02:34)
[2023-09-07] MEDS: 0.9 % Sodium Chloride 1,000 ML 999 ML IV (02:34)
[2023-09-07 02:59] LABS: Appearance Urine Cloudy; Color Urine Yellow; Glucose Urine UA Negative (Negative); Leukocyte Esterase Urine Small (1+) (Negative); Nitrite Urine Negative (Negative); PH 7.5 (5.0-9.0); Specific Gravity - Urine >= 1.030 (1.005-1.025); UMIC TRIGGER UACC YES; Urine Blood Negative (Negative); Urine Ketones Negative (Negative); Urine Protein Trace mg/dL (Neg-Trace)
[2023-09-07 03:31] LABS: Bacteria Urine 1+ (None Seen); Hyaline Casts Urine 0-2 /LPF (0-2); RBC Urine 0-2 /HPF (0-2); Squamous Epithelial Cell Urine >20 /HPF (0-2); UACC Culture Trigger YES
[2023-09-07 05:07] VITALS: BP 125/90; PULSE 68; RESP 16; TEMP 36.3; O2SAT 98
--- NOTE | 2023-09-07 06:47 | PC.NURSE ---
pt endorsing si with a plan at this time. sitter at bed side. awaiting security for blade changer
[2023-09-07 08:26] VITALS: BP 121/79; PULSE 46; RESP 14; TEMP 37.3; O2SAT 99
[2023-09-07 09:28] LABS: Amphetamine Screen Urine Not Detected (Not Detect); Barbiturates, Urine Not Detected (Not Detect); Benzodiazepines Screen Urine Not Detected (Not Detect); Cannabinoid Screen Urine Not Detected (Not Detect); Cocaine Screen Urine POSITIVE (Not Detect); Fentanyl, urine POSITIVE (Not Detect); Opiate Screen Urine POSITIVE (Not Detect); Phencyclidine Screen Urine Not Detected (Not Detect)
[2023-09-07 10:30] LABS: IDNOW Serial# 152EDE1D
[2023-09-07 10:31] LABS: COVID-19 Test Negative (Negative)
--- NOTE | 2023-09-07 10:43 | MHC.RECOVSUP ---
Met with pt in [facility] who is here for [facility]. Pt informs she was at [facility] for 2 weeks and left there on 08/28/23. While in treatment pt reports getting 75mg of Methadone and has not had it since leaving. Since leaving treatment on 08/28 pt has used 1 time 2 days ago with 1.5 bundles of heroin intravenously. At this time pt would like Methadone and would like to get back on it and would like ATS. ATS bed search in process.
[2023-09-07] MEDS: methADONE HCl 20 MG/2 ML ORAL.CONC 30 MG PO (11:24)
--- NOTE | 2023-09-07 11:30 | MHC.RECOVRN ---
Consult received R/T OUD. Patient was laying down in the position when I approached her,alert and oriented x4, speaking in rapid but appropriate sentences, skin pale and dry. Patient stating she feels very anxious,im freaking out please get me back on methadone! . Consulted with Caprice Ervin NP, will start methadone, relayed to patients primary RN Mildred plan of care.
[2023-09-07] MEDS: methADONE HCl 20 MG/2 ML ORAL.CONC 10 MG PO ×3 (17:06→22:35)
[2023-09-07 17:32] VITALS: RESP 18
--- NOTE | 2023-09-07 17:33 | PC.NURSE ---
Client given Methadone PO 30mg when transferred back to the POD and later 10mg. Reporting she is safe while in the hospital but has nowhere to go and that if she is discharged she will kill myself . No plan. Resting in bed most of the day, pale and reports discomfort d/t Opiod withdrawal. Appetite fair after Methadone. Awaiting disposition. Good behavioral control.
--- NOTE | 2023-09-07 17:42 | P.EN_ITS ---
Event Note Date of Service: 09/07/23 Event Note: Addiction Note: Patient currently in area of ED awaiting disposition. Well known to this life insurance underwriter via recent inpatient medical admission where methadone was initiated and titrated to therapeutic dose Evaluated by paper machine back tender earlier and was reporting and exhibiting withdrawal sx. Methadone 30mg administered with positive effect plan: -additional 10mg today -AM 40mg (09/08) -dispo unclear at this time. paper machine back tender to check in morning of 09/08 to assess withdrawal sx. Time Spent With Patient Time: Total time managing care of this patient today ____ minutes.
[2023-09-07 20:34] VITALS: PULSE 64
--- NOTE | 2023-09-07 22:35 | MHC.CARE ---
Pt has been accepted to [facility] program for tomorrow morning at 10 am. The accepting Doctor is Dr. Roa ( ). No nurse to nurse is required per [facility] . Address is [address] [place] [address].
--- NOTE | 2023-09-08 05:34 | MHC.EDTECH ---
Call out to [facility] @[phone] to book BLS transport ETA [id number]
[2023-09-08 06:24] VITALS: BP 128/71; PULSE 43; RESP 16; TEMP 37.2; O2SAT 100
[2023-09-08] MEDS: methADONE HCl 20 MG/2 ML ORAL.CONC 40 MG PO (08:52)
[2023-09-08 08:54] VITALS: BP 127/78; PULSE 57
--- NOTE | 2023-09-08 09:07 | PC.NURSE ---
40 mg of methadone was gven to the patient at 852 this am. bp was 127/78 and pulse was 57. MD was made aware and stated it was fine to administer medication with those vitals.
== END 2023-09-08 10:15 ==
PROVIDERS: Nurse Practitioner Family; Registered Nurse Emergency; Emergency Provider Emergency Medicine
DX: M54.50 Low back pain, unspecified (principal); F11.20 Opioid dependence, uncomplicated; Z11.52 Encounter for screening for COVID-19; R10.2 Pelvic and perineal pain; R19.7 Diarrhea, unspecified; R11.0 Nausea; F41.9 Anxiety disorder, unspecified; F19.10 Other psychoactive substance abuse, uncomplicated; F17.210 Nicotine dependence, cigarettes, uncomplicated
CPT/HCPCS: 36415; 36573; 72100; 72132; 80053; 80307; 81001; 84702; 85025; 87086; 87635; 96374; 99285; J1885; Q9967; S9485